=== PATIENT | female | born 1940 | race Caucasian/White ===

== ENCOUNTER 2021-08-03 13:28 | Outpatient (REF) | payer SELFPAY ==
--- NOTE | 2021-08-08 10:53 | MHC.AU.HAS ---
Hearing Aid Evaluation Date of Visit: 08/03/21 Political Anthropologist Used: Not Applicable Historical Information: Description of Hearin05/02/2021 Bilateral borderline normal low frequency sloping to moderately-severe sensorineural hearing loss with right tinnitus. PT Revaluation on 05/18/2021 showed decreased by 30 dB for right threshold at 8000 Hz only. Current personal amplification information, if applicable: None Summary: I LEFT MESSAGE WITH DR. MARTINES ON 08-08-21 TO DISCUSS THE CONTINUED RIGHT EAR PAIN PATIENT IS CONCERNED THE HEARING AID WILL BOTHER THE EAR. WANT TO DISCUSS IF PROBLEM COULD BE RELATED TO INFLAMMATION AND NEED FURTHER TREATMENT (NASAL SPRAY ?) OR CT SCAN. Hearing Aid Prescription: Based on the individual?s shared listening needs, communication environments, dexterity, desire for connectivity, and personal preferences, the following prescription for amplification has been made: Right ear: Jig Bore Tool Maker: [email or web address] Model: NOBLE PEAK VISION AI 2400 MYNOR-R Battery Size: Rechargeable Color: Bronze Computer Installation Engineer: #3 50 gain Type of Dome: Open Left ear: Jig Bore Tool Maker: [email or web address] Model: Zaarlyv AI 2400 MYNOR-R Battery Size: Rechargeable Color: Bronze Computer Installation Engineer: #3 50 gain Type of Dome: Open Plan of Care: Patient wishes to purchase hearing aids as prescribed Action Taken/Action Needed: Medical Clearance to be requested from ENT in chart Hearing Instrument Fitting to be scheduled when materials arrive Primary Diagnosis: H90.3 Bilateral Sensorineural Hearing Loss Signature: Provider: Jesse Rosales, CCC-A
== END 2021-08-03 13:29 | disposition home or self-care (01) ==
LOC: HO.HAP 13:28
PROVIDERS: Visit Provider Internal Medicine
DX: Z46.1 Encounter for fitting and adjustment of hearing aid (principal); H90.3 Sensorineural hearing loss, bilateral
CPT/HCPCS: 92591

== ENCOUNTER 2021-08-29 12:22 | Outpatient (REF) | payer SELFPAY | END 2021-08-29 12:23 | disposition home or self-care (01) | LOC: HO.HAP 12:22 | PROVIDERS: Visit Provider Internal Medicine | DX: Z46.1 Encounter for fitting and adjustment of hearing aid (principal); H90.3 Sensorineural hearing loss, bilateral | CPT/HCPCS: V5261; V5299 ==

== ENCOUNTER 2021-09-19 12:18 | Outpatient (REF) | payer SELFPAY ==
--- NOTE | 2021-09-19 13:51 | MHC.AU.HFU ---
Hearing Instrument Follow-Up- Binaural Date of Visit: 09/19/21 Right Ear: Commercial Portfolio Manager: Lev Model: Evolve AI 2400 MYNOR-R Serial Number: [id number] Repair Warranty: 11/20/2024 Loss and Damage Warranty: 11/20/2024 Battery Size: Rechargeable Color: Bronze Structures Assembler: #2 50 gain Type of Dome: Open-7mm Type of Wax Guard: HearClear Dispensed By: [facility] Date of Fittin08/29/2021 Left Ear: Commercial Portfolio Manager: Lev Model: Evolv AI 2400 MYNOR-R Serial Number: [id number] Repair Warranty: 11/20/2024 Loss and Damage Warranty: 11/20/2024 Battery Size: Rechargeable Color: Bronze Structures Assembler: #2 50 gain Type of Dome: Open 7mm Type of Wax Guard: HearClear Dispensed By: [facility] Date of Fittin08/29/2021 Follow-Up Summary: Aids have fallen off ears many times. No wearing aids when at home as they are loud and echoing. Changed to #2 60 gain Right automotive parts counter assistant (did not have 50 gain in stock) and #2 50 gain Left with retention tails. Fit seems better. Decided to try custom canal lock molds with large vents, took impressions without complication. Patient was asking about the Phonak Belen product. Discussed pros and cons and patient decided not to pursue. Discussed CIC aids (BUT WOULD BE BATTERY, NOT RECHARGEABLE) and may try if canal lock molds do not help. Recommendations:Schedule appointment when canal lock molds received. Diagnosis Code(s): Primary Diagnosis: H90.3 Bilateral Sensorineural Hearing Loss Signature:Provider: Marquez Rosales, [facility]
== END 2021-09-19 12:19 | disposition home or self-care (01) ==
LOC: HO.HAP 12:18
PROVIDERS: Visit Provider Internal Medicine
DX: Z13.89 Encounter for screening for other disorder (principal)

== ENCOUNTER 2021-10-12 13:20 | Outpatient (REF) | payer SELFPAY ==
--- NOTE | 2021-10-12 16:29 | MHC.AU.HFU ---
Hearing Instrument Follow-Up- Binaural Date of Visit: 10/12/21 Puppet Maker Used: Not Applicable Right Ear: Dyeing Machine Feeder: Best Five Reviewed Model: Evolve AI 2400 MYNOR-R Serial Number: [id number] Repair Warranty: 11/20/2024 Loss and Damage Warranty: 11/20/2024 Battery Size: Rechargeable Color: Bronze Unit Nurse: #2 50 gain Type of Mold: Lev canal lock #[id number] warranty 12/27/2021 Type of Wax Guard: HearClear Dispensed By: [facility] Date of Fittin08/29/2021 Left Ear: Dyeing Machine Feeder: Best Five Reviewed Model: Evolv AI 2400 MYNOR-R Serial Number: [id number] Repair Warranty: 11/20/2024 Loss and Damage Warranty: 11/20/2024 Battery Size: Rechargeable Color: Bronze Unit Nurse: #2 50 gain Type of Mold: Lev canal lock #[id number] warranty 12/27/2021 Type of Wax Guard: HearClear Dispensed By: [facility] Date of Fittin08/29/2021 Follow-Up Summary: Fit patient with canal lock molds with 50 gain receivers. Re-ran feedback test with patient reporting much improved sound quality and secure fit of molds. Practiced insertion. Doing well while in office. Patient will schedule appointment if any concerns. Recommendations: Hearing instrument follow-up or maintenance as needed. Please contact our clinic with any questions or concerns. Diagnosis Code(s):Primary Diagnosis: H90.3 Bilateral Sensorineural Hearing Loss Services Performed: HANC: NonBillable Event Signature:Provider: Jesse Rosales, CCC-A
== END 2021-10-12 13:21 | disposition home or self-care (01) ==
LOC: HO.HAP 13:20
PROVIDERS: Visit Provider Internal Medicine
DX: Z13.89 Encounter for screening for other disorder (principal)

== ENCOUNTER 2022-04-09 15:41 | Outpatient (REF) | payer SELFPAY | END 2022-04-09 15:42 | disposition home or self-care (01) | LOC: HO.HAP 15:41 | PROVIDERS: Visit Provider Internal Medicine | DX: Z13.89 Encounter for screening for other disorder (principal) ==

== ENCOUNTER 2023-02-12 13:49 | Outpatient (AMB) | payer SELFPAY ==
--- NOTE | 2023-02-12 13:56 | HO.SPINEOV ---
Intake Intake Visit Reasons: Back pain Intake Note: Mrs. Novak is here today c/o back pain and knee pain. MRI done @ [facility]/brought disc. Early Childhood Director Required: No Allergies no narcotics Allergy (Unknown, Uncoded 08/18/19 00:00) Assessment & Plan Assessment & Plan (1) Knee pain, right: Code(s): M25.561 - Pain in right knee Plan Dear colleague, On 02/12/2023, I saw Brooklynn Novak with a chief complaint of right knee pain radiating down her menendez.. HPI: Patient states that she underwent a partial right knee 2015 with good results. She fell and tripped in 2016 and landed on her left side. She complained of pain in her left side. No back pain, no numbness or weakness. She underwent conservative management and eventually ended up receiving a revision total knee surgery in 2016. Postoperatively she developed a burning pain in her right knee that radiates down her menendez. Standing for prolonged periods of time increases the pain. She then has to lay down with elevation of her right leg to diminish the pain. She is currently in physical therapy which is helping her symptoms. Physical Exam: Pleasant female. On inspection there are no deformities of the spine. No pain on palpation. Normal range of motion without pain. Straight leg raise is negative. There are no sensory deficits or weakness. No pathological reflexes. Radiological Studies: MRI of the lumbar spine is age-appropriate. There is mild degenerative disc disease L4-5. There is no foraminal stenosis or central stenosis. There is no nerve root compression. Impression/Plan: This patient is suffering from persistent burning pain in her right knee with radiation down her menendez. The pain is not spine related but originates from her right knee. I consulted a neurologist at [facility] to see if an SSEP will be helpful in demonstrating which sensory nerves involved. The answer was that this study would not be beneficial. Thank you for allowing me to participate in your patients care. total time spent was 50 minutes in counseling ,coordination of plan, personal review of imaging,and subsequent plan Greg Gonzales MD, PhD Spine Fellowship Trained Neurosurgeon Director, [facility] Coding Level of Care Code New Pt Level 4 (28804) Diagnoses Knee pain, right M25.561
== END 2023-02-12 15:12 | disposition home or self-care (01) ==
PROVIDERS: Visit Provider Neurological Surgery
DX: M25.561 Pain in right knee (principal)
CPT/HCPCS: 99204

== ENCOUNTER → 2023-02-12 13:49 | Outpatient (BNVA) | payer MEDICARE, SELFPAY | PROVIDERS: PCP Internal Medicine; Visit Provider Neurological Surgery | DX: M25.561 Pain in right knee (principal); M54.9 Dorsalgia, unspecified | CPT/HCPCS: 99202 ==

== ENCOUNTER 2023-08-15 12:32 | Outpatient (REF) | payer MEDICARE, SELFPAY ==
--- NOTE | 2023-08-15 13:42 | MHC.AU.HA3 ---
Hearing Instrument Follow-Up- Binaural Date of Visit: 08/15/23 Right Ear: Make, Model, Color, Serial Number: Lev CURRY 2400 MYNOR-R [place] [id number] Kitchen Help Handyman Repair Warranty: 11/20/2024 Kitchen Help Handyman Loss and Damage Warranty: 11/20/2024 [facility] Service Plan: 08/29/2024 Battery Size: Rechargeable Fire Supervisor/Slim Tube: #2 50 gain Earmold/Dome/CShell/SlimTip:Lev canal lock #[id number] warranty 12/27/2021 Type of Wax Guard: HearClear Dispensed By: [facility] Date of Fittin08/29/2021 Left Ear: Herve, Model, Color, Serial Number: Lev CURRY 2400 MYNOR-R [place] SN#[id number] Kitchen Help Handyman Repair Warranty: 11/20/2024 Kitchen Help Handyman Loss and Damage Warranty: 11/20/2024 [facility] Service Plan: 08/29/2024 Battery Size: Rechargeable Fire Supervisor/Slim Tube: #2 50 gain Earmold/Dome/CShell/SlimTip: Lev canal lock #[id number] warranty 12/27/2021 Type of Wax Guard: HearClear Dispensed By: [facility] Date of Fittin08/29/2021 Follow-Up Summary: Here for evaluation. Left mold was on backwards. Notes she turns the aids up regularly. Cleaned and checked aids, cleaned earmolds, replaced wax guards. Listening check positive. Increased overall gain slightly. Improvement reported. Recommendations: Recommendations: Hearing instrument follow-up or maintenance as needed. Diagnosis Code(s): Primary Diagnosis: H90.3 Bilateral Sensorineural Hearing Loss Signature: Provider: Brittni Bowles, CCC-A
== END 2023-08-15 12:33 | disposition home or self-care (01) ==
LOC: HO.SH 12:32
PROVIDERS: Visit Provider Internal Medicine
DX: Z01.118 Encounter for examination of ears and hearing with other abnormal findings (principal); H90.3 Sensorineural hearing loss, bilateral
CPT/HCPCS: 92557

== ENCOUNTER 2023-11-15 12:46 | Outpatient (REF) | payer MEDICARE, SELFPAY | END 2023-11-15 12:47 | disposition home or self-care (01) | LOC: HO.HAP 12:46 | DX: Z13.89 Encounter for screening for other disorder (principal) ==

== ENCOUNTER 2023-11-22 13:23 | Outpatient (REF) | payer SELFPAY | END 2023-11-22 13:24 | disposition home or self-care (01) | LOC: HO.HAP 13:23 | PROVIDERS: PCP Internal Medicine; Visit Provider Internal Medicine | DX: Z13.89 Encounter for screening for other disorder (principal) ==

== ENCOUNTER 2024-04-28 13:31 | Outpatient (REF) | payer SELFPAY ==
--- NOTE | 2024-04-29 07:23 | MHC.AU.HA3 ---
Hearing Instrument Follow-Up- Binaural Date of Visit: 04/28/24 Right Ear: Make, Model, Color, Serial Number: Lev Rutherford AI 2400 MYNOR-R SN: [id number] Color: Bronze It Help Desk Technician Repair Warranty: 11/20/2024 It Help Desk Technician Loss and Damage Warranty: 11/20/2024 [facility] Service Plan: 08/29/2024 Battery Size: Rechargeable Air Transport Professionals/Slim Tube: #2 50 gain Earmold/Dome/CShell/SlimTip:Lev canal lock #[id number] warranty 12/27/2021 Type of Wax Guard: HearClear Dispensed By: [facility] Date of Fittin08/29/2021 Left Ear: Make, Model, Color, Serial Number: Lev Rutherford AI 2400 MYNOR-R SN: [id number] Color: Bronze It Help Desk Technician Repair Warranty: 11/20/2024 It Help Desk Technician Loss and Damage Warranty: 11/20/2024 [facility] Service Plan: 08/29/2024 Battery Size: Rechargeable Air Transport Professionals/Slim Tube: #2 50 gain Earmold/Dome/CShell/SlimTip: Lev canal lock #[id number] warranty 12/27/2021 Type of Wax Guard: HearClear Dispensed By: [facility] Date of Fittin08/29/2021 Follow-Up Summary: Sound quality reportedly weak/not clear, still getting feedback, especially from left JUNIOR. Needs to turn down volume to resolve but then has difficulty hearing. Questions change in hearing - recommended updated hearing test. In the meantime, cleaned both HAs and EMs. Left customer retention representative cracked at end, would not hold in wax guard. Replaced customer retention representative. Reran feedback analyzer, significant decrease in amplification. Increased mid to high frequencies. Initially sound quality improved, left ear but not right ear. However, then Brooklynn reported right ear was better. Discussed options including new EMs to help with feedback, performing updated hearing test (farnsworth not available today), full reprogramming, etc. Brooklynn opted to start with new EMs and reprogramming. Impressions taken, bilaterally, without incident - Sent to Lev. Brooklynn agreeable to softer material. Quoted $190.00 due at mushroom picker. Will rerun feedback analyzer and real ear measures at next appointment to address issues with sound quality. Recommendations: Patient will be contacted when materials have arrived. Diagnosis Code(s): Primary Diagnosis: H90.3 Bilateral Sensorineural Hearing Loss Signature: Provider: Brittni Tyson, [facility]
== END 2024-04-28 13:32 | disposition home or self-care (01) ==
LOC: HO.HAP 13:31
PROVIDERS: Visit Provider Internal Medicine
DX: Z13.89 Encounter for screening for other disorder (principal)

== ENCOUNTER 2024-06-04 13:30 | Outpatient (REF) | payer MEDICARE, SELFPAY ==
--- OUTSIDE RECORDS SUMMARY | 2024-06-04 13:33 | XMS_ITS ---
Author Name [facility] Organization Unknown History of Medication Use Medication Directions Dispensed Refills Start Date End Date Stat olmesartan (BENICAR) 5 mg tablet Take 2 tablets (10 mg total) by mouth 1 (one) time each day. 05/31/2024 9 active clonazePAM (KlonoPIN) 1 mg tablet 1 tablet (1 mg total) 2 (two) times a day. 05/31/2024 9 active lidocaine (ZTlido) 1.8 % adhesive patch,medicated ZTlido 1.8 % topical patch APPLY 1 PATCH EXTERNALLY TO THE SKIN ONCE DAILY. MAY WEAR FOR UP TO 12 HOURS 05/31/2024 9 active loperamide (IMODIUM) 1 mg/7.5 mL solution Take 15 mL (2 mg total) by mouth. 05/31/2024 9 aborted diphenoxylate-atrop ine (LOMOTIL) 2.5-0.025 mg per tablet Take 1 tablet by mouth every 6 (six) hours as needed for diarrhea. 05/31/2024 9 active amoxicillin (AMOXIL) 500 mg capsule Dental work 05/31/2024 9 aborted colestipoL (COLESTID) 1 gram tablet Take 1 tablet (1 g total) by mouth 1 (one) time each day. 05/31/2024 9 aborted EPINEPHrine (EPIPEN) 0.3 mg/0.3 mL injection epinephrine 0.3 mg/0.3 mL injection, auto-injector USE DIRECTED FOR ANAPHYLAXIS AND CALL 911 05/31/2024 9 active simvastatin (ZOCOR) 20 mg tablet Take 1 tablet (20 mg total) by mouth 1 (one) time each day. 05/31/2024 9 active Lactobacillus acidophilus (PROBIOTIC ACIDOPHILUS ORAL) 1 (one) time each day. 05/31/2024 9 active olmesartan (BENICAR) 5 mg tablet Take by mouth. Taking two 5 mg Q AM 05/31/2024 9 aborted meclizine (ANTIVERT) 12.5 mg tablet Take 1 tablet (12.5 mg total) by mouth 3 times daily as needed. 05/31/2024 9 aborted EPINEPHrine 0.3 MG/0.3ML SOAJ epinephrine 0.3 mg/0.3 mL injection, auto-injector USE DIRECTED FOR ANAPHYLAXIS AND CALL 911 12/03/2023 active diphenoxylate-atrop ine (LOMOTIL) 2.5-0.025 MG per tablet TAKE ONE TABLET BY MOUTH EVERY DAY NEEDED FOR DIARRHEA 12/04/2023 active simvastatin (ZOCOR) tablet 20 mg Take 1 tablet (20 mg total) by mouth daily. 12/04/2023 active olmesartan (BENICAR) tablet 20 mg Take 1 tablet (20 mg total) by mouth daily. 12/03/2023 aborted amoxicillin (AMOXIL) 500 MG capsule Dental work 12/03/2023 active Lidocaine (ZTlido) 1.8 % PTCH ZTlido 1.8 % topical patch APPLY 1 PATCH EXTERNALLY TO THE SKIN ONCE DAILY. MAY WEAR FOR UP TO 12 HOURS 12/03/2023 active clonazePAM (KlonoPIN) 1 MG tablet Take 0.5 mg by mouth daily. 12/04/2023 active amLODIPine (NORVASC) tablet 2.5 mg Take 1 tablet (2.5 mg total) by mouth daily. 12/03/2023 aborted meclizine (ANTIVERT) 12.5 MG tablet Take 1 tablet (12.5 mg total) by mouth 3 (three) times a day as needed. 12/03/2023 active olmesartan (BENICAR) tablet 5 mg Take 2 tablets (10 mg total) by mouth daily. 12/03/2023 aborted olmesartan (BENICAR) tablet 20 mg Take 0.5 tablets (10 mg total) by mouth daily. Take half tab daily (please cancel any prior dose) 12/03/2023 active loperamide (IMODIUM) 1 MG/7.5ML solution Take 15 mL (2 mg total) by mouth. 12/03/2023 active meloxicam 7.5 mg tablet TAKE ONE TABLET BY MOUTH EVERY DAY WITH FOOD 12/07/2022 active simvastatin 20 mg tablet TAKE ONE TABLET BY MOUTH AT BEDTIME 12/07/2022 active epinephrine 0.3 mg/0.3 mL injection, auto-injector USE DIRECTED FOR ANAPHYLAXIS AND CALL 911 12/07/2022 active acetaminophen 300 mg-codeine 30 mg tablet TAKE ONE TABLET BY MOUTH EVERY 8 HOURS NEEDED 12/07/2022 completed tramadol 50 mg tablet TAKE ONE TABLET BY MOUTH FOUR TIMES A DAY NEEDED DIRECTED 12/07/2022 active betamethasone acetate-betamethaso ne sodium phosphate (CELESTONE) injection 12 mg 12 mg, Intra-articular, Once PRN Procedure, Starting on Patti 06/06/23 at 1345, For 1 dose 06/08/2023 completed diphenoxylate-atrop ine 2.5 mg-0.025 mg tablet TAKE ONE TABLET BY MOUTH FOUR TIMES A DAY NEEDED FOR DIARRHEA 12/07/2022 active Flowflex COVID-19 Antigen Home Test kit USE DIRECTED PER COMPUTERIZED MILL RECORDER INSTRUCTIONS TO TEST FOR COVID-19 12/07/2022 completed ZTlido 1.8 % topical patch APPLY 1 PATCH TOPICALLY TO SKIN ONCE DAILY - MAY WEAR UP TO 12 HOURS 12/07/2022 active amlodipine 2.5 mg tablet TAKE ONE TABLET BY MOUTH EVERY DAY 12/07/2022 active No known medications No known medications 01/06/2023 active clonazepam 1 mg tablet TAKE 1-2 TABLETS BY MOUTH AT BEDTIME 12/07/2022 active Problems Problem Status Onset Date Problem Type Date of Resolution Source Primary osteoarthritis involving multiple joints active 2017-05-17 ProblemAct [facility] Loosening of knee joint prosthesis active 2022-10-23 ProblemAct [facility]_THSFRAN Primary osteoarthritis involving multiple joints active 2017-05-17 ProblemAct [facility]SFRAN Palpitations active 2020-06-16 ProblemAct CT_TH SFRAN Trochanteric bursitis of left hip active 2022-12-05 ProblemAct CT_THSF RAN Neuritis of right saphenous nerve active 2021-06-01 ProblemAct [facility]_THSFRAN Bilateral tinnitus active 2017-05-17 ProblemAct [facility]_THSFRAN Cervical radiculopathy active 2021-06-01 ProblemAct [facility]_THSFRAN Complex regional pain syndrome type 2 of lower extremity active 2021-06-01 ProblemAct CT_THSFRA N Acquired hammer toe of left foot active 2024-02-04 ProblemAct [facility]_THSFRAN HTN (hypertension) active 2020-09-14 ProblemAct [facility]_THSFRAN Degeneration of lumbar intervertebral disc active 2021-06-01 ProblemAct CT_THSFR AN Chest pain active 2017-05-17 ProblemAct CT_THSF RAN Epigastric pain active 2024-02-[address] _THSFRAN Lumbar radiculopathy active 2021-06-01 ProblemAct [facility]_THSFRAN Hyperlipidemia active 2016-10-04 ProblemAct [facility]_ THSFRAN Pes anserinus tendinitis of right lower extremity active EncounterDiagnosisAct [facility] Degeneration of lumbar intervertebral disc active 2021-06-01 ProblemAct [facility]THNEMG Back pain active 2017-05-17 ProblemAct [facility]THNEMG Tinnitus active 2017-05-17 ProblemAct [facility]THNEMG Fatigue, unspecified type active EncounterDiagnosisAct CTTHNE MG Complex regional pain syndrome type I active 2021-06-01 ProblemAct CTTHNEM G Loosening of knee joint prosthesis active 2022-10-23 ProblemAct [facility] Pain of left hip joint active 2022-12-05 ProblemAct CT_THSFRAN Complex regional pain syndrome of lower limb active 2018-10-16 ProblemAct [facility]_THSFRAN Arthritis of right knee active 2021-06-01 ProblemAct [facility]_THSFRAN 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 active 2022-09-25 ProblemAct [facility] Immunizations Vaccine Date Source Lot Number Status Pneumococcal conjugate 13 va lent (Prevnar 13, PCV13) 2mo and older 05/17/2017 CT_JAMIEFRRICKI [id number] complet ed [facility] SARS-CoV-2 COVID-19, mRNA, LNP-S, preservative free 07/22/2020 CT_JULIAN [id number] completed Influenza, Unspecified 04/03/2019 CT_BALDEMARSANDRES co mpleted Tdap Tetanus diptheria acell ular pertussis (Boostrix; Adacel) 7yo and older 12/20/2011 CT_BALDEMARSANDRES completed Influenza trivalent, with pr eservative (Fluzone; Afluria) 6mo and older 03/08/2013 CT_SFRRICKI completed Influenza trivalent, 0.5mL ( Fluzone High-dose) 65yo and older 03/14/2018 CT_SFRRICKI [id number] comple chriss Influenza trivalent, with pr eservative (Fluzone; Afluria) 6mo and older 03/25/2010 CT_SFRAN completed Influenza trivalent, with pr eservative (Fluzone; Afluria) 6mo and older 03/06/2014 CT_SFRRICKI completed Pneumococcal polysaccharide 23 valent (Pneumovax 23) 2yo and older 03/17/2004 CT_SFRRICKI com pleted [facility] SARS-CoV-2 COVID-19, mRNA, LNP-S, preservative free 08/12/2020 [facility] [id number] completed Influenza, Unspecified 03/25/2009 CT_SFRRICKI co mpleted Td Tetanus diptheria, preser vative free (Tenivac) 7yo and older 03/17/2001 CT_SANDRES complete d
== END 2024-06-04 13:31 | disposition home or self-care (01) ==
LOC: HO.SH 13:30
PROVIDERS: Visit Provider Internal Medicine
DX: Z01.118 Encounter for examination of ears and hearing with other abnormal findings (principal); H90.3 Sensorineural hearing loss, bilateral
CPT/HCPCS: 92552; 92556

== ENCOUNTER 2024-06-04 13:32 | Outpatient (REF) | payer SELFPAY ==
--- NOTE | 2024-06-04 15:31 | MHC.AU.HA3 ---
Hearing Instrument Follow-Up- Binaural Date of Visit: 06/04/24 Right Ear: Make, Model, Color, Serial Number: Lev CURRY 2400 MYNOR-R SN: [id number] Color: Bronze Community Support Specialist Repair Warranty: 11/20/2024 Community Support Specialist Loss and Damage Warranty: 11/20/2024 [facility] Service Plan: 08/29/2024 Battery Size: Rechargeable Line Tender Flakeboard/Slim Tube: #2 50 gain Earmold/Dome/CShell/SlimTip:Lev canal lock 60 [facility] SN: [id number] Mame: 08/06/2024 Type of Wax Guard: HearClear Dispensed By: [facility] Date of Fittin08/29/2021 Left Ear: Make, Model, Color, Serial Number: Lev CURRY 2400 MYNOR-R SN: [id number] Color: Bronze Community Support Specialist Repair Warranty: 11/20/2024 Community Support Specialist Loss and Damage Warranty: 11/20/2024 [facility] Service Plan: 08/29/2024 Battery Size: Rechargeable Line Tender Flakeboard/Slim Tube: #2 50 gain Earmold/Dome/CShell/SlimTip: Lev canal lock 60 [facility] SN: [id number] Mame: 08/06/2024 Type of Wax Guard: HearClear Dispensed By: [facility] Date of Fittin08/29/2021 Follow-Up Summary: Slight decrease in hearing, bilaterally - see audio. Fit new ear molds and ran real ear, reprogramming to updated test. Brooklynn noticed immediate improvement in sound quality. Louder, clearer, not straining as much to understand. Decreased overall gain slightly for comfort. Noted own voice still loud but tolerable, willing to try to acclimate. Practiced insertion, advised to ensure molds are fully inserted. Has old molds to keep as backup. Recommendations: Hearing instrument follow-up or maintenance as needed. Please contact our clinic with any questions or concerns. Patient will call if problems persist. Diagnosis Code(s): Primary Diagnosis: H90.3 Bilateral Sensorineural Hearing Loss Signature: Provider: Brittni Tyson, [facility]
== END 2024-06-04 13:33 | disposition home or self-care (01) ==
LOC: HO.HAP 13:32
PROVIDERS: Visit Provider Internal Medicine
DX: Z46.1 Encounter for fitting and adjustment of hearing aid (principal); H90.3 Sensorineural hearing loss, bilateral
CPT/HCPCS: V5264

== ENCOUNTER 2024-08-05 12:22 | Outpatient (REF) | payer SELFPAY ==
--- OUTSIDE RECORDS SUMMARY | 2024-08-05 12:44 | XMS_ITS | Encounter Summary ---
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 [address] [facility] [address] [address] Encounter Date: 07/14/2024 History of Present Illness: Brooklynn Novak is a 84 y.o. female who presents today for followup evaluation of her right knee.Complex history. She underwent unicondylar knee replacement in [place] in 2016. She had a fall in the early postoperative period and never recovered. For this reason she was revised to a total knee arthroplasty [place] [address] Huerta in [place]. Implants are [employer] fixed bearing. She has had chronic pain since the surgery. She denies any index wound healing problems or infections. Her pain is located primarily anteriorly medially. She feels it both with activity and at rest. She denies any radiating/radicular pain. She has now had quite extensive workup including a negative bone scan and negative inflammatory markers. She has tried prior therapy exercises, use of a brace, and genicular nerve ablation. The nerveablation was done in 2019 and gave her approximately 6 days of relief and then wore off. She occasionally takes tramadol. She uses lidocaine patches frequently. She is a retired OR nurse, used to work at the [employer]. Overall she continues to struggle with the right knee. She is also noticed the lateral hip and thigh pain when she is lying on her right side. She is not having radiation up to the low back. She does tell me she is recently . Physical Exam Examination of the right knee demonstrates well-healed surgical incision. I see no signs of infection. There is no erythema or effusion. There is some generalized swelling. She is quite tender over the pes tendons. The remainder of the knee is only mildly tender. Range of motion is from full extension to 125 degrees of flexion. The knee is stable in extension to varus and valgus stress in full extension. There is moderate flexion instability noted. She is distal neurovascular intact. There is no evidence of referred pain from the hip. Diagnostic Data I did offer to obtain new x-rays as a last were from August 2023. The patient politely declined. Assessment & Plan 1. 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, subsequent encounter 2. Iliotibial band syndrome of right side Brooklynn continues to have pain to the right knee. She simply has not done well with her knee replacement. She does have moderate flexion instability on exam today and that may account for some of her symptoms. As discussed in prior notes there is no severe or gross instability and I am not sure that revision surgery would be in her best interest. She is quite adamant that at this point she does not w ant surgery or further x-rays so we will hold off on any further workup. I do think she benefit from physical therapy which has been ordered. 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 Therapy should work on dynamic stabilizers of the knee, her hip abductors, and stretching of her IT band. She will follow-up on an as-needed basis. Clarence Lockhart MD documented in this encounter Plan of Treatment Not on file documented as of this encounter Goals Goal Patient Goal Type Associated Problems Recent Progress Patient-Stated? Author PT STG 1 Physical Therapy Not on track( 024 1:35 PM EDT) No Merly Cannon, PT Note: Patient will be able to stand x 20 minutes with less than 3 out of 10 right knee pain without assistive device modified independent within 4 weeks. Patient will be able to perform sit to stand 3 out of 5 times with less than 2 out of 10 right knee pain without loss of balance without upper extremity support modified independent within 4 weeks. Patient will be independent with written right lower extremity home exercise program within 4 weeks. PT LTG 1 Physical Therapy On track( 025 1:26 PM EST) No Merly Cannon, PT Note: Patient will improve right hip strength at all planes to 4+ out of 5 to be able to ambulate up and down 13 stairs with 1 rail reciprocally with less than 2 out of 10 right knee pain within 8 weeks. Patient will be able to perform sit to stand transfers without upper extremity support without loss of balance modified independent 5 out of 5 times with less than 2 out of 10 right knee pain within 8 weeks. Decrease LEFS score by 20 points within 8 weeks. documented as of this encounter Visit Diagnoses Diagnosis 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, subsequent encounter- Primary Iliotibial band syndrome of right side documented in this encounter Care Teams Learning And Development Director Relationship Specialty Start Date End Date Brent Crisostomo MD [address] [place] [id number] PCP - General Internal Medicine 10/16/23 documented as of this encounter
--- OUTSIDE RECORDS SUMMARY | 2024-08-05 12:44 | XMS_ITS | Data Portability ---
Author Organization [facility] Address [address] [facility],[address] [place] [address] Care Team Providers Care Director [facility] Name Role Phone SID RAMOS Primary Care Provider Assessment Encounter Date Assessment Date Assessment LastModified by Organization Details LastModified Time 03/22/2020 03/22/2020 Brooklynn Novak is a 80 year old woman with low back pain radiating occasionally into the right lower extremity. On exam ,she has pain on flexion. MRI Lumbar spine shows Moderate upper lumbar levoscoliosis, with multilevel discogenic degenerative changes with multilevel minimal degrees of disc bulging and disc herniations. She is here for a repeat Lumbar epidural steroid injections under fluoroscopic guidance . The risks and benefits of the procedure were discussed in detail. She wishes to proceed. She needs to follow up in four weeks by telehealth visit . [email or web address] Not available 03/22/2020 15:42:16 06/29/2020 06/29/2020 Brooklynn Novak is a 80 year old woman with low back pain radiating occasionally into the right lower extremity. On exam ,she has pain on flexion. MRI Lumbar spine shows Moderate upper lumbar levoscoliosis, with multilevel discogenic degenerative changes with multilevel minimal degrees of disc bulging and disc herniations. She is here for a repeat Lumbar epidural steroid injections under fluoroscopic guidance . The risks and benefits of the procedure were discussed in detail. She wishes to proceed. She needs to follow up in four weeks by telehealth visit . [email or web address] Not available 06/29/2020 14:02:10 12/07/2020 12/07/2020 Brooklynn Novak is a 78 year old woman with complaints of pain in her right knee. She is S/P Right total knee replacement and has persistent knee pain. 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 She is here for a right saphenous nerve block under ultrasound guidance. The risks and benefits of the procedure were discussed in detail. She wishes to proceed. She will follow up as needed. [email or web address] Not available 12/08/2020 11:10:40 02/26/2022 02/26/2022 Brooklynn Novak is a 82 year old woman with low back pain radiating occasionally into the right lower extremity. On exam ,she has pain on flexion. MRI Lumbar spine shows Moderate upper lumbar levoscoliosis, with multilevel discogenic degenerative changes with multilevel minimal degrees of disc bulging and disc herniations. Repeat Lumbar epidural steroid injections under fluoroscopic guidance was recommended. The risks and benefits of the procedure were discussed in detail. She wishes to proceed. An appointment has been booked for the same. She needs a pizza delivery driver on the day of the procedure. [email or web address] Not available 02/27/2022 08:51:21 05/24/2022 05/24/2022 Brooklynn Novak is a 82 year old woman with low back pain radiating occasionally into the right lower extremity. On exam ,she has pain on flexion. MRI Lumbar spine shows Moderate upper lumbar levoscoliosis, with multilevel discogenic degenerative changes with multilevel minimal degrees of disc bulging and disc herniations. Repeat Lumbar epidural steroid injections under fluoroscopic guidance was recommended. The risks and benefits of the procedure were discussed in detail. She wishes to proceed. An appointment has been booked for the same. She needs a pizza delivery driver on the day of the procedure. [email or web address] Not available 05/24/2022 15:27:51 Plan of Treatment Reminders Order Date Submit Date Provider Last Modified By Organization Details Last Modified Time Details Appointments None recorded. Lab None recorded. Referral None recorded. Procedures None recorded. Surgeries None recorded. Imaging None recorded. Medication Orders ZTlido 1.8 % topical patch 2021 022 [id number], [address] [place], [place], [id number], 14:52:27 ZTlido 1.8 % topical patch 2019 020 [id number], [address], [place], [place], [id number], 0 15:43:11 Patient TargetsNo targets recorded. Patient Instructions Encounter Date Encounter Id Patient Instructions Last Modified By Organization Details Last Modified Time 03/22/2020 [id number] She was advised against bed rest lasting longer than four days and to continue activities as tolerated. [email or web address] Not available 03/22/2020 15:41:04 06/29/2020 [id number] She was advised against bed rest lasting longer than four days and to continue activities as tolerated. [email or web address] Not available 06/29/2020 14:02:11 12/07/2020 [id number] She was advised against bed rest lasting longer than four days and to continue activities as tolerated. [email or web address] Not available 12/08/2020 11:09:19 02/26/2022 [id number] She was advised against bed rest lasting longer than four days and to continue activities as tolerated. [email or web address] Not available 02/27/2022 08:51:33 05/24/2022 [id number] She was advised against bed rest lasting longer than four days and to continue activities as tolerated. [email or web address] Not available 05/24/2022 15:27:51 Reason for Referral None Reported. Problems Name Problem SNOMED Code Status Onset Date Resolution Date Notes Provider Name and Address Organization Details Recorded Time Right saphenous neuritis 019740629293 108 Active Meme gant MD [address] , [address], [place], [address], [place] [facility] 15:07:29 Arthritis of right knee 716091143796 9102 Active Meme gant MD [address] , [address], [place], [address], [place] [facility] 9 15:07:43 Complex regional pain syndrome, type II, lower limb 938362797 Completed 10/16/2018 Meme gant MD [address] , [address], [place], [address], [place] [facility] 9 14:51:48 Complex regional pain syndrome type I 768352746 Active Meme gant MD [address] , [address], [place], [address], [place] [facility] 9 14:52:12 Complex regional pain syndrome of lower limb 577257609 Active 2018 Meme gant MD [address] , [address], [place], [address], [place] [facility] 9 14:54:07 Cervical radiculop athy 32417660 Active Meme gant MD [address] , [address], [facility] [place], [address], [place] [facility] 9 10:12:07 Lumbar radiculop athy 602372772 Active Meme gant MD [address] , [address], [place], [address], [place] [facility] 0 15:48:26 Degenerat ion of lumbar intervert ebral disc 62562363 Active Meme gant MD [address] , [address], [facility] [place], [address], [place] [facility] 0 15:48:40 Problem Notes None recorded. Procedures Surgical History Date Name Laterality Status Provider Name and Address Organization Details Recorded Time 12/08/19 21 Sapheneous Nerve block under ultrasound guidance completed Meme Ackerman MD [address] , [address], [place], [address], [place] [facility] 12/08/2020 11:09:29 06/29/19 21 Lumbar Epidural steroid injection under fluoroscopic guidance completed Meme Ackerman MD [address] , [address], [place], [address], [place] [facility] 06/29/2020 14:02:58 03/22/20 20 Lumbar Epidural steroid injection under fluoroscopic guidance completed Meme Ackerman MD [address] , [address], [place], [address], [place] [facility] 03/22/2020 15:41:15 12/08/19 20 Lumbar Epidural steroid injection under fluoroscopic guidance completed Meme Ackerman MD [address] [facility] , [address], [place], [address], [place] [facility] 12/08/2019 16:15:24 07/14/19 20 Lumbar Epidural steroid injection under fluoroscopic guidance completed Meme Ackerman MD [address] [facility] , [address], [place], [address], [place] [facility] 07/14/2019 16:27:03 01/20/20 19 Sapheneous Nerve block under ultrasound guidance completed Meme Ackerman MD [address] [facility] , [address], [place], [address], [place] [facility] 01/19/2019 14:14:27 11/07/19 19 Sapheneous Nerve block under ultrasound guidance completed Meme Ackerman MD [address] [facility] , [address], [place], [address], [place] [facility] 11/07/2018 09:07:54 10/17/19 19 Sapheneous Nerve block under ultrasound guidance completed Meme Ackerman MD [address] [facility] , [address], [place], [address], [place] [facility] 10/16/2018 14:25:02 09/26/19 19 Sapheneous Nerve block under ultrasound guidance completed Meme Ackerman MD [address] [facility] , [address], [place], [address], [place] [facility] 09/25/2018 15:54:24 Cholecystectomy completed Viridiana Emanuel [place] [facility] 08/25/2018 14:27:38 Joint Replacement completed Viridiana Emanuel [place] [facility] 08/25/2018 14:29:14 Imaging Results None recorded. Procedure Notes None recorded. Medical Equipment None Reported. Allergies Allergen ID Allergen Name Allergen Category Reaction Reaction Severity Criticality Documentation Date Start Date Code Code System Note Provider Name and Address Organization Details Recorded Time 58752 acetamino phen / oxycodone medicatio n Not available Not available Not available 01/19/2019 02662 3 RxNorm Palpi ation s Meme gant MD [address] [place] [address] , [address], [facility] [place], [address], [place] [facility] 0 15:46:40 Medications Name Sig Start Date Stop Date Status Note LastModified by Organization Details LastModified Time amoxicill in 500 mg capsule active For dental procedur e Not Available Not Available Not Available neomycin- polymyxin -hydrocor t 3.5 mg/mL-10, 000 unit/mL-1 % ear solution INSTILL 5 DROPS INTO RIGHT EAR EVERY DAY 05/24 completed Not Available Not Available Not Available tizanidin e 2 mg tablet 08/25 completed Not Available Not Available Not Available azithromy chely 250 mg tablet 07/13 completed Not Available Not Available Not Available ofloxacin 0.3 % eye drops INSTILL 1 DROP INTO INTO THE LEFT EYE FOUR TIMES DAILY 05/24 completed Not Available Not Available Not Available ondansetr on HCl 4 mg tablet TK 1 T PO Q 6 H 12/13 completed Not Available Not Available Not Available clonazepa m 0.5 mg tablet TAKE ONE TABLET BY MOUTH EVERY DAY NEEDED 05/24 completed Not Available Not Available Not Available clonazepa m 1 mg tablet TAKE 1 TO 2 TABLETS BY MOUTH AT BEDTIME NEEDED active Not Available Not Available No t Available diphenoxy late-atro pine 2.5 mg-0.025 mg tablet TAKE ONE TABLET BY MOUTH FOUR TIMES A DAY NEEDED FOR DIARRHEA active Not Available Not Available No t Available meclizine 12.5 mg tablet active Not Available Not Available Not Available acetamino phen 300 mg-codein e 15 mg tablet TK 1 T PO TID PRF PAIN 03/22 completed Not Available Not Available Not Available amlodipin e 2.5 mg tablet TAKE ONE TABLET BY MOUTH EVERY DAY NEW DOSE active Not Available Not Available No t Available metronida zole 500 mg tablet TAKE 1 TABLET BY MOUTH THREE TIMES DAILY FOR 3 DAYS 05/24 completed Not Available Not Available Not Available acetamino phen 300 mg-codein e 30 mg tablet TAKE ONE TABLET BY MOUTH EVERY 8 HOURS NEEDED active Not Available Not Available No t Available amlodipin e 5 mg tablet 05/24 completed Not Available Not Available Not Available sulfameth oxazole 800 mg-trimet hoprim 160 mg tablet TAKE ONE TABLET BY MOUTH TWICE A DAY, BEGIN THE DAY OF SURGERY 03/22 completed Not Available Not Available Not Available tramadol 50 mg tablet TAKE ONE TABLET BY MOUTH EVERY 6 HOURS NEEDED FOR SEVERE PAIN (PAIN SCALE 7-10). DO NOT TAKE WITH ACETAMIN OPHEN/ CODEINE* * 05/24 completed Not Available Not Available Not Available amoxicill in 500 mg tablet TAKE 4 TABLETS 30 - 60 MINUTES BEFORE PROCEDUR E 05/24 completed Not Available Not Available Not Available ketorolac 0.5 % eye drops 1 DROP INTO AFFECTED EYE FOUR TIMES DAILY 05/24 completed Not Available Not Available Not Available prednisol one acetate 1 % eye drops,eric pension INSTILL 1 DROP IN THE RIGHT EYE 4 TIMES A DAY 05/24 completed Not Available Not Available Not Available cephalexi n 500 mg capsule 08/25 completed Not Available Not Available Not Available simvastat in 20 mg tablet TAKE 1 TABLET BY MOUTH EVERY DAY active Not Available Not Available No t Available lisinopri l 10 mg tablet TAKE 1 TABLET BY MOUTH EVERY DAY 05/24 completed Not Available Not Available Not Available lidocaine 5 % topical patch APPLY ONE PATCH ONCE DAILY. KEEP ON FOR 12 HOURS AND THEN KEEP OFF FOR 12 HOURS. 03/22 completed Not Available Not Available Not Available hydrochlo rothiazid e 12.5 mg capsule 03/22 completed Not Available Not Available Not Available lisinopri l 5 mg tablet TAKE 1 TABLET BY MOUTH EVERY DAY 05/24 completed Not Available Not Available Not Available gabapenti n 100 mg capsule TK 1 C PO QD IN THE DEE 02/26 completed Not Available Not Available Not Available epinephri ne 0.3 mg/0.3 mL injection , auto-inje ctor USE DIRECTED FOR ANAPHYLA XIS AND CALL 911 active Not Available Not Available No t Available methylpre dnisolone 4 mg tablets in a dose pack TAKE DIRECTED ON PACKAGE 05/24 completed Not Available Not Available Not Available colestipo l 1 gram tablet 05/24 completed Not Available Not Available Not Available atenolol 50 mg tablet 12/13 completed Not Available Not Available Not Available tobramyci n 0.3 %-dexamet hasone 0.1 % eye drops,eric pension 08/25 completed Not Available Not Available Not Available duloxetin e 20 mg capsule,d elayed release TAKE 1 CAPSULE BY MOUTH EVERY DAY 05/24 completed Not Available Not Available Not Available diclofena c 1 % topical gel DMITRY 4 GRAMS AA BY TOPICAL ROUTE QID 12/13 completed Not Available Not Available Not Available ZTlido 1.8 % topical patch APPLY 1 PATCH TOPICALL Y TO SKIN ONCE DAILY - MAY WEAR UP TO 12 HOURS active Not Available Not Available No t Available Flowflex COVID-19 Antigen Home Test kit USE DIRECTED PER MANUFACT URER INSTRU[employer] IONS TO TEST FOR COVID-19 05/24 completed Not Available Not Available Not Available Vitals Date Recorded Body height Heart rate Oxygen saturation Oxygen saturation in Arterial blood by Pulse oximetry Systolic blood pressure Diastolic blood pressure Provider Name and Address Organization Details Last Updated DateTime 0 162.56 cm 74 /min 98 % 98 % 163 mm[Hg] 62 mm[Hg] Nelida Mims [facility] 0 13:59:31 Date Recorded Body height Heart rate Oxygen saturation Oxygen saturation in Arterial blood by Pulse oximetry Systolic blood pressure Diastolic blood pressure Provider Name and Address Organization Details Last Updated DateTime 1 162.56 cm 84 /min 96 % 96 % 171 mm[Hg] 77 mm[Hg] Pedro gant [place] [facility] 1 11:29:06 Date Recorded Body height Heart rate Oxygen saturation Oxygen saturation in Arterial blood by Pulse oximetry Systolic blood pressure Diastolic blood pressure Provider Name and Address Organization Details Last Updated DateTime 1 162.56 cm 66 /min 99 % 99 % 141 mm[Hg] 63 mm[Hg] Meme gant MD [address] [facility] [address], [facility] [place], [address], [place] [facility] 1 15:08:45 Date Recorded Body height Provider Name an d Address Organization Details Last Updated DateTime 12/13/2020 162.56 cm Nelida Mims [place] [facility] 12/13/2020 14:06:30 Date Recorded Heart rate Oxygen saturation Oxygen saturation in Arterial blood by Pulse oximetry Systolic blood pressure Diastolic blood pressure Provider Name and Address Organization Details Last Updated DateTime 2 74 /min 98 % 98 % 176 mm[Hg] 81 mm[Hg] Xavitrustalin gant [facility] 2 15:24:11 Date Recorded Heart rate Oxygen saturation Oxygen saturation in Arterial blood by Pulse oximetry Systolic blood pressure Diastolic blood pressure Provider Name and Address Organization Details Last Updated DateTime 2 71 /min 97 % 97 % 167 mm[Hg] 74 mm[Hg] Nelida [place] [facility] 2 14:34:35 Social History Question Answer Notes LastModified by Organizat ion Details LastModified Time Tobacco Smoking Status Former Smoker Quit x 45 years Viridiana Alvarezbessie uriost[place]ui [place] [facility] 08/25/2018 14:25:11 What Is Your Level Of Alcohol Consumption? Occasional Information not available 08/25/2018 Are You Currently Employed? No Information not available 08/25/2018 Which Illicit Or Recreational Drugs Have You Used? No Information not available 08/25/2018 Education 4 Year College RN Informatio n not available 08/25/2018 What Is Your Occupation? Retired Information not available 08/25/2018 Live Alone Or With Others? With Others Information not available 08/25/2018 Marital Status Informatio n not available 08/25/2018 What Was The Date Of Your Most Recent Tobacco Screening? 12/23/2018 Information not available 01/07/2019 How Many Years Have You Smoked Tobacco? 10 Information not available 08/25/2018 Sex: Unknown Functional Status None recorded. Mental Status None recorded. Family History Relationship Description Onset Age of this Age Resolved Age Notes LastModified by Organization Details LastModified Time Mother Diabetes mellitus Not available 2018 14:24:46 Medical History Condition Response Arthritis Y Irritable Bowel Syndrome Y Hypertension Y High Cholesterol Y Gynecological HistoryNo gynecological history recorded. Obstetrics History GPAL:G 0 P 0 0 0 0 Past Encounters Encounter ID Performer Location Encounter Start Date Encounter Closed Date Diagnosis/Indication Diagnosis SNOMED-CT Code Diagnosis ICD10 Code Diagnosis Note [id number] Meme Ackerman MD [facility] [address] [place] [address] 08/25/2018 13:49:45 08/29/2018 11:10:41 Arthritis of right knee 8519084056 516425 M13.861 Neuritis o f saphenous nerve 252971201 G57.81 [id number] Meme Ackerman MD [facility] [address] [place] [address] 09/22/2018 13:03:21 09/24/2018 15:15:32 Arthritis of right knee 8119478610 758327 M13.861 Neuritis o f saphenous nerve 545153039 G57.81 [id number] Meme Ackerman MD [facility] [address] [place] [address] 09/25/2018 14:53:31 09/25/2018 15:58:43 Arthritis of right knee 1191541265 330607 M13.861 Neuritis o f saphenous nerve 605031483 G57.81 [id number] Meme Ackerman MD PAIN OFFICE [address] [facility] [address] 10/16/2018 13:34:02 10/16/2018 14:27:02 Arthritis of right knee 4890928276 971636 M13.861 Neuritis o f saphenous nerve 984816613 G57.81 Complex re gional pain syndrome of lower limb 746418745 G90.521 [id number] Meme Ackerman MD [facility] [address] [facility] [address] 11/06/2018 13:02:39 11/07/2018 10:17:20 Arthritis of right knee 6312480502 965018 M13.861 Neuritis o f saphenous nerve 629185415 G57.81 Complex re gional pain syndrome of lower limb 566941087 G90.521 Cervical radiculopathy 36132504 M54.12 [id number] Meme Ackerman MD [facility] [address] [facility] [address] 12/22/2018 14:01:20 12/23/2018 11:02:50 Arthritis of right knee 8079528317 834543 M13.861 Neuritis o f saphenous nerve 510600224 G57.81 Complex re gional pain syndrome of lower limb 199473619 G90.521 Cervical radiculopathy 45840660 M54.12 [id number] Meme Ackerman MD PAIN OFFICE [address] [facility] [place] [address] 01/19/2019 13:07:32 01/19/2019 14:16:46 Arthritis of right knee 8705757343 542746 M13.861 Neuritis o f saphenous nerve 260785223 G57.81 Complex re gional pain syndrome of lower limb 517897279 G90.521 Cervical radiculopathy 04644417 M54.12 Pain in ri ght hip joint 6550121791 11990 M25.551 [id number] Meme Ackerman MD PAIN OFFICE [address] [facility] [place] [address] 02/26/2019 15:30:27 03/06/2019 10:57:15 Arthritis of right knee 1924509163 674219 M13.861 Neuritis o f saphenous nerve 091461826 G57.81 Complex re gional pain syndrome of lower limb 432873673 G90.521 Cervical radiculopathy 58196033 M54.12 Pain in ri ght hip joint 5592726572 86651 M25.551 [id number] Meme Ackerman MD PAIN OFFICE [address] [facility] [place] [address] 07/13/2019 15:31:34 07/13/2019 16:55:10 Lumbar radiculopathy 202868667 M54.16 Degenerati on of lumbar intervertebral disc 89592276 M51.36 [id number] Meme Ackerman MD PAIN OFFICE [address] [facility] [place] [address] 07/14/2019 14:40:04 07/14/2019 16:30:24 Lumbar radiculopathy 353205110 M54.16 Degenerati on of lumbar intervertebral disc 88451416 M51.36 [id number] Meme Ackerman MD [facility] [address] [place] [address] 11/12/2019 14:28:36 11/12/2019 15:34:56 Lumbar radiculopathy 632592083 M54.16 Degenerati on of lumbar intervertebral disc 62368580 M51.36 [id number] Meme Ackerman MD [facility] [address] [place] [address] 12/08/2019 13:03:19 12/08/2019 16:17:32 Lumbar radiculopathy 598894983 M54.16 Degenerati on of lumbar intervertebral disc 88472297 M51.36 Arthritis of right knee 9478590382 492211 M13.861 [id number] Meme Ackerman MD [facility] [address] [place] [address] 01/18/2020 10:00:28 01/18/2020 10:05:33 Lumbar radiculopathy 030618165 M54.16 Degenerati on of lumbar intervertebral disc 15139760 M51.36 Arthritis of right knee 4663547192 521335 M13.861 [id number] Meme Ackerman MD [facility] [address] [place] [address] 02/26/2020 09:33:19 03/23/2020 11:08:03 Lumbar radiculopathy 919197217 M54.16 Degenerati on of lumbar intervertebral disc 07118246 M51.36 [id number] Meme Ackerman MD [facility] [address] [place] [address] 03/22/2020 13:53:02 03/22/2020 15:59:46 Lumbar radiculopathy 598095527 M54.16 Degenerati on of lumbar intervertebral disc 31443587 M51.36 Arthritis of right knee 8396891153 515669 M13.861 [id number] Meme Ackerman MD [facility] [address] [place] [address] 06/29/2020 11:22:43 06/29/2020 14:05:21 Lumbar radiculopathy 377788057 M54.16 Degenerati on of lumbar intervertebral disc 32067581 M51.36 Arthritis of right knee 7025459999 518966 M13.861 [id number] Meme Ackerman MD PAIN OFFICE [address] [place] [address] 12/07/2020 15:05:22 12/08/2020 11:11:51 Arthritis of right knee 9337544395 087583 M13.861 Neuritis o f saphenous nerve 858845286 G57.81 Complex re gional pain syndrome of lower limb 342919535 G90.521 Cervical radiculopathy 45042364 M54.12 Pain in ri ght hip joint 6043203459 39987 M25.551 [id number] Meme Ackerman MD PAIN OFFICE [address] [place] [address] 02/26/2022 15:15:06 02/27/2022 08:52:19 Lumbar radiculopathy 503264221 M54.16 Degenerati on of lumbar intervertebral disc 81864337 M51.36 [id number] Meme Ackerman MD PAIN OFFICE [address] [place] [address] 05/24/2022 14:25:07 05/24/2022 15:28:56 Arthritis of right knee 8879148469 978655 M13.861 Lumbosacra l radiculopathy 8356528 M54.17 Lumbar radiculopathy 128 212139 M54.16 Degenerati on of lumbar intervertebral disc 27785544 M51.36 Health Concerns Section Related Observation LastModified by Organization Detai ls LastModified Time None Recorded Concern Status LastModified by Organization Details LastModified Time None Recorded Advance Directives Directive None Recorded Payers Encounter Date Sequence Insurance Name Policy Number Policy Galicia Covered Member ID Galicia Member ID Guarantor Name 03/22/2020 1 [place]: [employer] Brooklynn Novak [id number] Brooklynn Novak 03/22/2020 2 [employer] OPTIONS (MEDICARE SUPPLEMENT) Brooklynn Novak [id number] Brooklynn Novak 06/29/2020 1 [place]: [employer] Brooklynn Barron Asinas [id number] Brooklynn Asinas 06/29/2020 2 [employer] OPTIONS (MEDICARE SUPPLEMENT) Brooklynn Asinas [id number] Brooklynn Asinas 12/07/2020 1 [place] NATIONAL GOVERNMENT SERVICES Brooklynn Barron Asinas [id number] Brooklynn Asinas 12/07/2020 2 [employer] HE[employer] OPTIONS (MEDICARE SUPPLEMENT) Brooklynn Asinas [id number] Brooklynn Asinas 02/26/2022 1 [place] NATIONAL GOVERNMENT SERVICES Brooklynn Barron Asinas [id number] Brooklynn Asinas 02/26/2022 2 [employer] HE[employer] OPTIONS (MEDICARE SUPPLEMENT) Brooklynn Asinas [id number] Brooklynn Asinas 05/24/2022 1 [place] NATIONAL GOVERNMENT SERVICES Brooklynn Barrno Asinas [id number] Brooklynn Asinas 05/24/2022 2 [employer] HE[employer] OPTIONS (MEDICARE SUPPLEMENT) Brooklynn Asinas [id number] Brooklynn Asinas Notes Date Note Type Note Provider Name and Address Organization Details Recorded Time 03/22/2020 text/html She is here for a lumbar epidural steroid injection under fluoroscopic guidance. Meme Ackerman MD [address] [facility] , [place] [address], [place], [address], [facility] - Pain Management 03/22/2020 16:17:10 06/29/2020 text/html She is here for a lumbar epidural steroid injection under fluoroscopic guidance. Meme Ackerman MD [address] [facility] , [place] [address], [place], [address], [facility] - Pain Management 06/29/2020 15:50:36 12/07/2020 text/html She is here for a repeat saphenous nerve block under ultrasound guidance. She reports some pain benefit after last injection. Meme Ackerman MD [address] [facility] , [facility] [address], [place], [address], [place] - [place] 12/12/2020 10:52:25 02/26/2022 text/html She is here for a follow up. She was last seen on 12/07/20. She states she has been having pain in her right knee radiating into right foot with numbness and feels unsteady and is inquiring about walking with a cane. She states her is anemic and is seeing Dr. Cheng and she has been taking care of him. She has no history of bladder or bowel incontinence.She has been doing a home exercise program. She is having a difficult time walking due to pain and is worried about travel. She states she need a note as she has a case in [place] for which she need to appear in court and is unable to travel due to various reasons. Meme Ackerman MD [address] , [address], [place], [address], [facility] Pain Management 02/27/2022 16:08:59 05/24/2022 text/html She is here for a follow up. She is complaining of pain in her leg with weakness in left foot ankle region. She states she has been having more balance issues. She is looking after her and he has been sick. He needs a walker and she has been folding and carrying the walker. She feels her pain may be associated with frequent lifting. She does not have a ride and hence has not scheduled a lumbar epidural steroid injection. She has no history of bladder or bowel incontinence Meme Ackerman MD [address] , [address], [place], [address], [facility] Pain Management 05/24/2022 15:39:41 OBGyn Episode No OBEpisode recorded.
--- OUTSIDE RECORDS SUMMARY | 2024-08-05 12:44 | XMS_ITS | Encounter Summary ---
Author Organization [facility] Address [address] [place] [address] Care Team Providers Care Medicaid Specialist Name Role Phone Brent Castillo MD Primary Care Provider [phone] Encounter Details Date Type Department Care Team (Late st Contact Info) Description 07/03/2024 [facility] [address] [place] [address] Yesi Campos MD [address] [place] [address] [place] [address] Social History Tobacco Use Types Packs/Day Years Used Date Smoking Tobacco: Former Smokeless Tobacco: Never Alcohol Use Standard Drinks/Week Comments Yes 0 (1 standard drink = 0.6 oz pur e alcohol) Comments Unknown Sex and Gender Information Value Date Recorded Sex Assigned at Not on file Legal Sex Female 10:15 AM EST Gender Identity Not on file Sexual Orientation Not on file documented as of this encounter Progress Notes * Yolanda Guaman - 07/03/2024 4:29 PM EST LVM for pt to cb and book with in [place]. (Ok for provider switch per ) documented in this encounter Plan of Treatment Upcoming Encounters Date Type Department Care Team (Late st Contact Info) Description 09/25/2024 11:20 AM EDT Office Visit [facility] [place] [address] [place] [address] Yesi Campos MD [facility] [address] [place] [address] 05/28/2025 2:00 PM EST Office Visit [facility] [place] [address] [facility] [address] [place] [phone] Franklin Whalen MD [address] [facility] [address] [place], [place] [id number] documented as of this encounter Visit Diagnoses Not on filedocumented in this encounter Care Teams Medicaid Specialist Relationship Specialty Start Date End Date Brent Castillo MD [address] [place] [address] PCP - General Plaster Machine Tender 12/15/21 documented as of this encounter
--- OUTSIDE RECORDS SUMMARY | 2024-08-05 12:44 | XMS_ITS | Patient Health Record ---
Author Organization [facility] Billing Info Address [address] [place], [place] [id number] Care Team Providers Care Retail Store Associate Name Role Phone LUCAS GUARDADO Unavailable [phone] LUCAS GUARDADO M.D. Unavailable Unavailable Reason For Referral No Information Plan Of Treatment No Information Insurance Providers Payer Name Payer Address Payer Phone Subscriber Number Group Number Insured Name Patient Relationship to Insured Coverage Start Date Coverage End Date [place] PART B [address] [facility] MELANY PEARSON [id number] Brooklynn Novak Self - patient is the insured 2 2 [facility] MEDICARE SUPPLEMENT [address] [address] [place], [place] [id number] Brooklynn Novak Self - patient is the insured 2 2
--- OUTSIDE RECORDS SUMMARY | 2024-08-05 12:44 | XMS_ITS | Encounter Summary ---
Author Organization [facility] Address [address] [place] [address] Care Team Providers Care Beverage Inspection Machine Tender Name Role Phone Brent Castillo MD Primary Care Provider [phone] Reason for Visit * Reason Onset Date Comments Echo results 07/06/2024 BP readings 07/06/2024 Encounter Details Date Type Department Care Team (Late Contact Info) Description 07/06/2024 Telephone [facility] [place] [facility] [place] [address] [address] Katherine Gannon MA Echo results; BP readings Social History Tobacco Use Types Packs/Day Years [...] as of this encounter Progress Notes * Katherine Gannon MA - 07/06/2024 4:47 PM EST Spoke to pt and relayed normal echo results and normal BP readings. documented in this encounter Plan of Treatment Upcoming Encounters Date Type Department Care Team (Late Contact Info) Description 09/25/2024 11:20 AM EDT Office Visit [facility] [address] [address] Yesi Campos MD [address] [facility] [address] [place] [phone] 05/28/2025 2:00 PM EST Office Visit [facility] [place] [facility] [place] [address] [facility] [place] [address] [place] [phone] Franklin Whalen MD [address] [facility] [address] [place], [place] [phone] documented as of this encounter Visit Diagnoses Not on filedocumented in this encounter Care Teams Beverage Inspection Machine Tender Relationship Specialty Start Date End Date Brent Castillo MD [address] [place] [address] PCP - General Kidney Puller 12/15/21 documented as of this encounter
--- OUTSIDE RECORDS SUMMARY | 2024-08-05 12:44 | XMS_ITS | Clinical Summary ---
Author Organization [facility] [place] Address [address] [place] [address] Phone Care Team Providers Care Workers Compensation Claims Specialist Name Role Phone Brent Castillo MD Primary Care Provider [phone] Allergies Active Allergy Reactions Criticality Noted Date Comments Audie Inhibitors 09/21/2021 Contraindicated with monthly bee venom injection Bee Venom Protein (Honey Bee) Swelling 05/19/2020 Beta-Blockers (Beta-Adrenergic Blocking Agts) 09/21/2021 Bradycardia Fentanyl 02/17/2021 Other reaction(s): UNKNOWN Medications clonazePAM (KlonoPIN) 1 mg tablet 1 tablet (1 mg total) 2 (two) times a day. 0 Active diphenoxylate-at ropine (LOMOTIL) 2.5-0.025 mg per tablet Take 1 tablet by mouth every 6 (six) hours as needed for diarrhea. 4 Active EPINEPHrine (EPIPEN) 0.3 mg/0.3 mL injection epinephrine 0.3 mg/0.3 mL injection, auto-injector USE DIRECTED FOR ANAPHYLAXIS AND CALL 911 8 Active lidocaine (ZTlido) 1.8 % adhesive patch,medicated ZTlido 1.8 % topical patch APPLY 1 PATCH EXTERNALLY TO THE SKIN ONCE DAILY. MAY WEAR FOR UP TO 12 HOURS Active simvastatin (ZOCOR) 20 mg tablet Take 1 tablet (20 mg total) by mouth 1 (one) time each day. 1 Active Lactobacillus acidophilus (PROBIOTIC ACIDOPHILUS ORAL) 1 (one) time each day. 9 Active olmesartan (BENICAR) 5 mg tablet Take 2 tablets (10 mg total) by mouth 1 (one) time each day. 180 tablet 3 4 Active Active Problems Problem Noted Date Diagnosed Date Acquired hammer toe of left foot 02/04/2024 Epigastric pain 02/04/2024 Pain of left hip joint 12/05/2022 Trochanteric bursitis of left hip 12/05/2022 Loosening of knee joint prosthesis 10/23/2022 Arthritis of right knee 06/01/2021 Cervical radiculopathy 06/01/2021 Lumbar radiculopathy 06/01/2021 Complex regional pain syndrome type 2 of lower e xtremity 06/01/2021 Degeneration of lumbar intervertebral disc 06/01 Neuritis of right saphenous nerve 06/01/2021 HTN (hypertension) 09/14/2020 Palpitations 06/16/2020 Overview (04/19/2024): Hypertension Sinus tachycardia cristofer--2017--normal pefusion, EF>70 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, chronic pain requiring epidural pain injections Echo--06/16/20--EF>70, normal strain, normal studyu 30 day loop Lipids--[id number], HDL57, TG151, BGA386 Complex regional pain syndrome of lower limb 07/2018 Bilateral tinnitus 05/17/2017 Chest pain 05/17/2017 Primary osteoarthritis involving multiple joints 05/17/2017 Hyperlipidemia 10/04/2016 Encounters Date Type Department Care Team Description 07/06/[address] [place] [facility] [place] [address] [address] Katherine Gannon MA Echo results; BP readings 07/03/2024 Telephone [facility] [place] [address] [place] [address] Yesi Campos MD 07/01/2024 2:15 PM EST Ancillary Procedure [facility] [place] [facility] [place] [address] [address] Palpitations; Primary hypertension 05/29/2024 12:30 PM EST Office Visit [facility] [place] [address] [address] Franklin Whalen MD Palpitations (Primary Dx); Primary hypertension; Hyperlipidemia, unspecified hyperlipidemia type from Last 3 Months Immunizations Name Administration Dates Next Due Influenza trivalent, 0.5mL ( Fluzone High-dose) 65yo and older 03/14/2018 Influenza trivalent, with pr eservative (Fluzone; Afluria) 6mo and older 03/06/2014,03/08/2013,03/25/2010 Influenza, Unspecified 04/03/2019,03/25/2009 Pfizer SARS-CoV-2 COVID-19, mRNA, LNP-S, preservative free 08/12/2020,07/22/2020 Pneumococcal conjugate 13 va lent (Prevnar 13, PCV13) 2mo and older 05/17/2017 Pneumococcal polysaccharide 23 valent (Pneumovax 23) 2yo and older 03/17/2004 Td Tetanus diptheria, preser vative free (Tenivac) 7yo and older 03/17/2001 Tdap Tetanus diptheria acell ular pertussis (Boostrix; Adacel) 7yo and older 12/20/2011 Medical History Medical History Date Comments Vertigo DX:Vertigo Tachycardia DX:Tachycardia Osteoarthritis DX:Osteoarthriti s Hyperlipidemia DX:Hyperlipidemi a Hypertension DX:Hypertension Rheumatic fever DX:Rheumatic fev er Family History Medical History Relation Name Comments Diabetes Mother Colon cancer Neg Hx Colon polyps Neg Hx Relation Name Status Comments Mother Social History Tobacco Use Types Packs/Day Years Used Date Smoking Tobacco: Former Smokeless Tobacco: Never Tobacco Cessation:Counseling Given: Not Answered Alcohol Use Standard Drinks/Week Comments Yes 0 (1 standard drink = 0.6 oz pur e alcohol) Comments Unknown Sex and Gender Information Value Date Recorded Sex Assigned at Not on file Legal Sex Female 10:15 AM EST Gender Identity Not on file Sexual Orientation Not on file Obstetrics History Last Filed Vital Signs Vital Sign Reading Time Taken Comments Blood Pressure 140/80 05/29/2024 12:32 PM EST Pulse 57 05/29/2024 12:32 PM EST Temperature - - Respiratory Rate - - Oxygen Saturation 99% 05/29/2024 12:32 PM EST Inhaled Oxygen Concentration - - Weight 68.5 kg (151 lb) 05/29/2024 12:32 PM EST pt reported Height 162.6 cm (5' 4 ) 05/29/2024 12:32 PM EST Body Mass Index 25.92 05/29/2024 12:32 PM EST Plan of Treatment Upcoming Encounters Date Type Department Care Team (Late st Contact Info) Description 09/25/2024 11:20 AM EDT Office Visit [facility] [place] [address] [place] [address] Yesi Campos MD [address] [facility] [address] [place] [phone] 05/28/2025 2:00 PM EST Office Visit [facility] [place] [address] [facility] [address] [place] [address] Franklin Whalen MD 19 [facility] 45 [place], [place] [phone] Health Maintenance Due Date Last Done Comments Zoster Vaccines (1 of 2) 1989 DTaP,Tdap,and Td Vaccines (3 - Td or Tdap) 12/19/2021 12/20/2011, 03/17/2001 Cholesterol Screening (Lipid Panel) 05/24/2022 Depression Screening 05/24/2022 Falls Risk Assessment 05/24/2022 Medicare Annual Wellness Visit 05/24/2022 Osteoporosis Screening (Bone Density Screening) 05/24/2022 Social Influencers of Health Screening 05/24/2022 Hypertension/CHF/CAD Annual BMP Blood Test 05/25/2022 COVID-19 Vaccine ( season) 2024 04/20/2022, 12/10/2021, 03/21/2021, Additional history exists RSV Immunization Patients 60+ Years Old Completed 05/16/2023 Influenza Vaccine Completed 03/05/2024, , 03/03/2022, Additional history exists Pneumococcal Vaccine: 50+ Years Completed 03/05/2024, 05/17/2017, 04/25/2015, Additional history exists HIB Vaccines Aged Out No longer eligi ble based on patient's age to complete this topic HPV Vaccines Aged Out No longer eligi ble based on patient's age to complete this topic Hepatitis A Vaccines Aged Out No long er eligible based on patient's age to complete this topic Hepatitis B Vaccines Aged Out No long er eligible based on patient's age to complete this topic IPV Vaccines Aged Out No longer eligi ble based on patient's age to complete this topic MMR Vaccines Aged Out No longer eligi ble based on patient's age to complete this topic Meningococcal ACWY Vaccine Aged Out N o longer eligible based on patient's age to complete this topic Meningococcal B Vacine Aged Out No lo nger eligible based on patient's age to complete this topic RSV Immunization Patients Under 20 months Aged Out No longer eligible based on patient's age to complete this topic Varicella Vaccines Aged Out No longer eligible based on patient's age to complete this topic Procedures Procedure Name Priority Date/Time Associated Diagnosis Comments TRANSTHORACIC ECHOCARDIOGRAM (TTE) COMPLETE Routine 07/01/2024 2:51 PM EST Palpitations Primary hypertension ECG 12-LEAD Routine 05/29/2024 5:59 PM EST Palpitations Primary hypertension from Last 3 Months Results * TRANSTHORACIC ECHOCARDIOGRAM (TTE) COMPLETE (07/01/2024 2:51 PM EST) Anatomical Region Laterality Modality Ultrasound Franklin Whalen MD CV ECHO PROCEDURES Final Re sult * ECG 12 lead (05/29/2024 5:59 PM EST) Impressions Cecilia Ortiz - 05/29/2024 5:59 PM EST NSR 56, ns t changes Franklin Whalen MD ECG ORDERABLES Final Resul t from Last 3 Months Insurance [facility] Advance Directives Documents on File Type Date Recorded Patient Repairer Expl anation Health Care Decision (hx) 09/10/2021 ZAC ALSTON DIRECTIVE Care Teams Workers Compensation Claims Specialist Relationship Specialty Start Date End Date Brent Castillo MD [address] [place] [address] PCP - General Extension Course Coordinator 12/15/21
--- OUTSIDE RECORDS SUMMARY | 2024-08-05 12:45 | XMS_ITS | Clinical Summary ---
Author Organization [facility] Address [address] [place] [address] Care Team Providers Care Garnett Room Worker Name Role Phone Brent Crisostomo MD Primary Care Provider [phone] Allergies Active Allergy Reactions Criticality Noted Date Comments Audie Inhibitors 09/21/2021 Contraindicated with monthly bee venom injection Bee Sting Swelling 05/19/2020 Beta Adrenergic Blockers 09/21/2021 Bradycardia Fentanyl 02/17/2021 Other reaction(s): UNKNOWN Medications Medication Sig Dispensed Refills Start Date End Date Status clonazePAM (KlonoPIN) 1 MG tablet Take 0.5 mg by mouth daily. 0 05/10/2020 Active simvastatin (ZOCOR) tablet 20 mg Take 1 tablet (20 mg total) by mouth daily. 0 08/10/2020 Active amoxicillin (AMOXIL) 500 MG capsule Dental work 0 Active EPINEPHrine 0.3 MG/0.3ML SOAJ epinephrine 0.3 mg/0.3 mL injection, auto-injector USE DIRECTED FOR ANAPHYLAXIS AND CALL 911 0 01/06/2018 Active Lidocaine (ZTlido) 1.8 % PTCH ZTlido 1.8 % topical patch APPLY 1 PATCH EXTERNALLY TO THE SKIN ONCE DAILY. MAY WEAR FOR UP TO 12 HOURS 0 Active loperamide (IMODIUM) 1 MG/7.5ML solution Take 15 mL (2 mg total) by mouth. 0 03/12/2019 Active meclizine (ANTIVERT) 12.5 MG tablet Take 1 tablet (12.5 mg total) by mouth 3 (three) times a day as needed. 30 tablet 0 09/21/2021 Active olmesartan (BENICAR) tablet 20 mg Take 0.5 tablets (10 mg total) by mouth daily. Take half tab daily (please cancel any prior dose) 45 tablet 3 06/14/2023 Active colestipol (COLESTID) 1 g tabletIndications:B ile salt-induced diarrhea Take 1 tablet (1 g total) by mouth daily. 90 tablet 1 12/13/2023 Active diphenoxylate-atrop ine (LOMOTIL) 2.5-0.025 MG per tabletIndications:D iarrhea, unspecified type Take 1 tablet by mouth every 6 (six) hours as needed for diarrhea. 30 tablet 1 12/17/2023 Active Active Problems Problem Noted Date Diagnosed Date DVT prophylaxis 02/04/2024 02/04/2024 Acquired hammer toe of left foot 02/04/2024 02/04/2024 Epigastric pain 02/04/2024 02/04/2024 Pain of left hip joint 12/05/2022 Trochanteric bursitis of left hip 12/05/2022 02/04/2024 Loosening of knee joint prosthesis 10/23/2022 02/04/2024 Arthritis of right knee 06/01/2021 Cervical radiculopathy 06/01/2021 Lumbar radiculopathy 06/01/2021 Complex regional pain syndrome type 2 of lower e xtremity 06/01/2021 Degeneration of lumbar intervertebral disc 06/01 Neuritis of right saphenous nerve 06/01/2021 HTN (hypertension) 09/14/2020 Palpitations 06/16/2020 Overview: Hypertension Sinus tachycardia cristofer--2017--normal pefusion, EF>70 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, chronic pain requiring epidural pain injections Echo--06/16/20--EF>70, normal strain, normal studyu 30 day loop Lipids--[id number], HDL57, TG151, EMV901 Complex regional pain syndrome of lower limb 07/2018 Chest pain 05/17/2017 Primary osteoarthritis involving multiple joints 05/17/2017 Bilateral tinnitus 05/17/2017 Hyperlipidemia 10/04/2016 Immunizations Name Administration Dates Next Due Influenza Trivalent (Fluzone High Dose) 0.7 mL (65yrs &>) 03/14/2018 Influenza Trivalent (Fluzone /Afluria) 5.0mL Multi-dose Vial 03/06/2014,03/08/2013,03/25/2010 Influenza Vaccine, Unspecified formulation 04/03,03/25/2009 Pneumococcal Conjugate PCV13 05/17/2017 Pneumococcal Polysaccharide PPSV23 03/17/2004 Td (Tenivac) 03/17/2001 Tdap 12/20/2011 Family History Medical History Relation Name Comments Diabetes Mother Colon cancer Neg Hx Colon polyps Neg Hx Relation Name Status Comments Mother Social History Tobacco Use Types Packs/Day Years Used Date Smoking Tobacco: Former Cigarettes Passive Smoke Exposure: Past Smokeless Tobacco: Never Tobacco Cessation:Counseling Given: Not Answered Alcohol Use Standard Drinks/Week Comments Yes 0 (1 standard drink = 0.6 oz pur e alcohol) occ Sex and Gender Information Value Date Recorded Sex Assigned at Female 09/25/2022 3:07 PM EDT Gender Identity Female 09/25/2022 3:07 PM EDT Sexual Orientation Not on file Job Start Date Occupation Industry Not on file Not on file Not on file Last Filed Vital Signs Vital Sign Reading Time Taken Comments Blood Pressure 144/74 12/13/2023 2:15 PM EDT Pulse 70 12/13/2023 2:15 PM EDT Temperature 36.6 ??C (97.8 ??F) 08/17/2022 3:02 PM ES T Respiratory Rate - - Oxygen Saturation 99% 12/13/2023 2:15 PM EDT Inhaled Oxygen Concentration - - Weight 68.1 kg (150 lb 3.2 oz) 12/13/2023 2:15 P M EDT Height 162.6 cm (5' 4 ) 12/13/2023 2:15 PM EDT Body Mass Index 25.78 12/13/2023 2:15 PM EDT Plan of Treatment Health Maintenance Due Date Last Done Comments Depression Screening 1952 Preventative Health Evaluation 1957 Shingrix-Zoster Vaccine (1 of 2) 1989 Fall Risk Assessment 02/26/2004 Osteoporosis Screening (DEXA Scan) 02/26/2004 RSV Adult > 60+ Yrs or (1 - 1-dose 75+ series) 2014 DTap / Tdap / Td (2 - Td or Tdap) 12/19/2021 12/20/2011, 03/17/2001 COVID-19 Vaccine (3 - 2024-25 season) 2024 08/12/2020, 07/22/2020 Influenza Vaccine (#1) 2024 8, 03/06/2014, 03/08/2013, Additional history exists Pneumococcal Vaccine Completed 05/17/2017, 03/17/20 04 Hepatitis B Vaccines Aged Out No long er eligible based on patient's age to complete this topic RSV Ped < 20 months Aged Out No longe r eligible based on patient's age to complete this topic Care Teams Garnett Room Worker Relationship Specialty Start Date End Date Brent Crisostomo MD [address] [address] PCP - General Aircraft Mechanic Armament 05/04/22
--- OUTSIDE RECORDS SUMMARY | 2024-08-05 12:45 | XMS_ITS | Encounter Summary ---
Author Organization [facility] Address [address] [place] [address] Care Team Providers Care Lay Out Worker Name Role Phone Thierry Leslie MD Primary Care Provider [phone] Thierry Leslie MD Unavailable [phone] Brent Crisostomo MD Primary Care Provider [phone] Encounter Details Date Type Department Care Team (Late st Contact Info) Description 09/03/2023 Scanned Document [facility] [address] [place] [address] Ruben Harrell MD [address] [place] [address] Social History Tobacco Use Types Packs/Day Years Used Date Smoking Tobacco: Never Assessed Sex and Gender Information Value Date Recorded Sex Assigned at Female 07/04/2023 5:58 AM EST Gender Identity Female 07/04/2023 5:58 AM EST Sexual Orientation Heterosexual (straight) 07/04 5:58 AM EST documented as of this encounter Plan of Treatment Not on file documented as of this encounter Visit Diagnoses Not on filedocumented in this encounter Care Teams Lay Out Worker Relationship Specialty Start Date End Date Thierry Leslie MD [address] [place] [address] PCP - General Internal Medicine 07/07/20 10/15/23 Brent Crisostomo MD [address] [place] [address] PCP - General Internal Medicine 10/16/23 Thierry Leslie MD [address] [place] [address] Internal Medicine 07/07/20 10/15/23 documented as of this encounter
--- OUTSIDE RECORDS SUMMARY | 2024-08-05 12:45 | XMS_ITS | Encounter Summary ---
Author Organization [facility] Address [address] [place] [address] Care Team Providers Care Seeing Eye Dog Teacher Name Role Phone Thierry Leslie MD Primary Care Provider [phone] Thierry Leslie MD Unavailable [phone] Brent Crisostomo MD Primary Care Provider [phone] Encounter Details Date Type Department Care Team (Late st Contact Info) Description 08/20/2023 Scanned Document [facility] [address] [place] [address] Ruben Harrell MD [address] [place] [address] Social History Tobacco Use Types Packs/Day Years [...] on filedocumented in this encounter Care Teams Seeing Eye Dog Teacher Relationship Specialty Start Date End Date Thierry Leslie MD [address] [place] [address] PCP - General Internal Medicine 07/07/20 10/15/23 Brent Crisostomo MD [address] [place] [address] PCP - General Internal Medicine 10/16/23 Thierry Leslie MD [address] [place] [address] Internal Medicine 07/07/20 10/15/23 documented as of this encounter
--- OUTSIDE RECORDS SUMMARY | 2024-08-05 12:45 | XMS_ITS | Data Portability ---
Author Organization [facility] Carmen Bentley AONE Rueter Address [address] [place] [address] Care Team Providers Care Bean Sprout Grower Name Role Phone SID RAMOS Primary Care Provider Assessment Encounter Date Assessment Date Assessment LastModified by Organization Details LastModified Time 12/05/2022 12/05/2022 Symptoms are consistent with greater trochanteric bursitis. Aggravate alleviating factors were discussed. Treatment options were reviewed. We discussed anti-inflammatori es which she cannot take. We discussed physical therapy which she declined. She was eager to consider corticosteroid injection. The procedure was performed on today's visit. Patient tolerated the injection well. Postinjection instructions given. Frequency of injection was reviewed. Patient will follow-up in 3 to 4 weeks if symptoms have not improved, sooner for any complications. All questions answered to their satisfaction. [email or web address] Not available 12/05/2022 14:53:46 Plan of Treatment Reminders Order Date Submit Date Provider Last Modified By Organization Details Last Modified Time Details Appointments None recorded. Lab ESR (erythrocyt e sedimentati on rate), blood 2022 023 MIKE Not available 3 15:10:36 C-reactive protein, quantitativ e, serum or plasma 2022 023 MIKE Not available 3 10:09:15 Referral None recorded. Procedures None recorded. Surgeries None recorded. Imaging XR, hip, unilateral, 2 or 3 view 2022 023 [email or web address] [id number] [facility], [address], [place], [address], 3 21:24:01 XR, knee, 3 view 2022 023 [email or web address] [facility], [address], [facility] [address], [place], [address], 3 16:31:36 NM, bone scan, 3-phase - painful right total knee replacment. loosening suspected 2022 023 MIKE Not available 3 09:13:16 Medication Orders None recorded. Patient TargetsNo targets recorded. Patient Instructions Encounter Date Encounter Id Patient Instructions Last Modified By Organization Details Last Modified Time 10/23/2022 [id number] AP, lateral, and patellar radiographs of the right knee taken today demonstrate a right total knee replacement. There are lucent lines around the tibial component. These are circumferential. There is no signs of gross loosening. There is no signs of progression compared to x-rays from August. No signs of other hardware related complications. [email or web address] Not available 10/23/2022 15:16:10 12/05/2022 [id number] 2 views of the {{Right Left*}} hip were obtained in the [facility] [place]} } office. X-rays demonstrated normal bone mineralization. Femoral head sits well in the acetabulum. No significant degenerative changes. Calcifications noted in the lateral hip consistent with calcific bursitis. No evidence of acute injury or fracture. Images interpreted by: Adrian Pettit PA-C [email or web address] Not available 12/05/2022 14:53:02 Reason for Referral None Reported. Results Created Date Observation Date Name Description Value Unit Range Abnormal Flag Note LastModifiedBy Organization Detail LastModifiedTime 10/04/19 23 10/02/2022 NM, bone scan, 3-pha se No observ ation record ed. [email or web address] [facility] [address] [place], [address], 10/03/2022 16:40:45 Result Notes None recorded. Problems Name Problem SNOMED Code Status Onset Date Resolution Date Notes Provider Name and Address Organization Details Recorded Time Trochanteri c bursitis of left hip 5398476981945 03 Active [address], [place], [address], [place] [facility] 3 14:52:25 Pain of left hip joint 1935771810408 00 Active [address], [place], [address], [place] [facility] 3 14:52:28 Chronic pain following right total knee arthroplast y 5861966908001 9100 Active [address], [place], [address], [place] [facility] 3 13:55:37 Loosening of knee joint prosthesis 724845241 Active [address], [place], [address], [place] [facility] 3 15:16:27 Problem Notes None recorded. Procedures Surgical History Date Name Laterality Status Provider Name and Address Organization Details Recorded Time 3 JOURDAN Troch Bursa Inj completed [address], [place], [address], [place] [facility] 12/05/2022 14:52:14 Knee Surgery completed Sharri Zimmer [place] [facility] 09/25/2022 13:44:19 Imaging Results Imaging Date Name Status LastModified by Organiz ation Details LastModified Time 10/02/2022 NM, bone scan, 3-phase completed [email or web address] [facility] [address] [facility], [place], [address], 10/03/2022 16:40:45 Procedure Notes None recorded. Medical Equipment None Reported. Allergies Allergen ID Allergen Name Allergen Category Reaction Reaction Severity Criticality Documentation Date Start Date Code Code System Note Provider Name and Address Organization Details Recorded Time 2016 fentanyl medicatio n Not available Not available Not available 09/25/2022 [id number] RxNorm Sharri Zimmer null, [place] - [facility] 13:43:46 Medications Name Sig Start Date Stop Date Status Note LastModified by Organization Details LastModified Time clonazepam 1 mg tablet TAKE 1-2 TABLETS BY MOUTH AT BEDTIME active Not Available Not Available No t Available diphenoxyla te-atropine 2.5 mg-0.025 mg tablet TAKE ONE TABLET BY MOUTH FOUR TIMES A DAY NEEDED FOR DIARRHEA active Not Available Not Available No t Available amlodipine 2.5 mg tablet TAKE ONE TABLET BY MOUTH EVERY DAY active Not Available Not Available No t Available acetaminoph en 300 mg-codeine 30 mg tablet TAKE ONE TABLET BY MOUTH EVERY 8 HOURS NEEDED 12/05 completed Not Available Not Available Not Available tramadol 50 mg tablet TAKE ONE TABLET BY MOUTH FOUR TIMES A DAY NEEDED DIRECTED active Not Available Not Available No t Available meloxicam 7.5 mg tablet TAKE ONE TABLET BY MOUTH EVERY DAY WITH FOOD active Not Available Not Available No t Available simvastatin 20 mg tablet TAKE ONE TABLET BY MOUTH AT BEDTIME active Not Available Not Available No t Available epinephrine 0.3 mg/0.3 mL injection, auto-inject or USE DIRECTED FOR ANAPHYLAX IS AND CALL 911 active Not Available Not Available No t Available ZTlido 1.8 % topical patch APPLY 1 PATCH TOPICALLY TO SKIN ONCE DAILY - MAY WEAR UP TO 12 HOURS active Not Available Not Available No t Available Flowflex COVID-19 Antigen Home Test kit USE DIRECTED PER [employer] TO TEST FOR COVID-19 12/05 completed Not Available Not Available Not Available Vitals Date Recorded Body height Body mass index (BMI) Body weight Provider Name and Address Organization Details Last Updated DateTime 09/25/2022 162.56 cm 26.8 kg/m2 32041.41 moo Pilidonell Sesaynes [place] - [facility] 09/25/2022 13:44:00 Date Recorded Body height Body mass index (BMI) Body weight Provider Name and Address Organization Details Last Updated DateTime 10/23/2022 162.56 cm 26.8 kg/m2 30741.41 moo Sharri Zimmer [facility] 10/23/2022 14:48:16 Date Recorded Body height Body mass index (BMI) Body weight Provider Name and Address Organization Details Last Updated DateTime 12/05/2022 162.56 cm 26.8 kg/m2 [address] [facility], 12/05/2022 13:52:24 Social History None recorded. Functional Status None recorded. Mental Status None recorded. Family History Relationship Description Onset Age of this Age Resolved Age Notes LastModified by Organization Details LastModified Time Mother Diabetes mellitus [email or web address] Not available 2022 13:44:14 Medical History Condition Response Hypertension Y Gynecological HistoryNo gynecological history recorded. Obstetrics History GPAL:G 0 P 0 0 0 0 Past Encounters Encounter ID Performer Location Encounter Start Date Encounter Closed Date Diagnosis/Indication Diagnosis SNOMED-CT Code Diagnosis ICD10 Code Diagnosis Note [id number] MD [place] [id number] 09/25/2022 13:21:18 09/25/2022 14:08:23 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 6456668448 7061695 T84.84XA [id number] Luis Zuniga MD [address] [address] 10/23/2022 14:25:16 10/23/2022 15:16:52 History of right total knee replacement 8554957445 925099 Z96.651 Loosening of knee joint prosthesis 806986633 T84.032D [id number] Luis Zuniga MD [address] [address] 12/05/2022 13:23:57 12/05/2022 15:32:21 Pain of left hip joint 8282787752 50030 M25.552 Trochanter ic bursitis of left hip 7236801597 37634 M70.62 Health Concerns Section Related Observation LastModified by Organization Detai ls LastModified Time None Recorded Concern Status LastModified by Organization Details LastModified Time None Recorded Advance Directives Directive None Recorded Payers Encounter Date Sequence Insurance Name Policy Number Policy Galicia Covered Member ID Galicia Member ID Guarantor Name 09/25/2022 1 MEDICARE B-CT: NELLA Novak [id number] Brooklynn Novak 09/25/2022 2 [employer] OPTIONS (MEDICARE SUPPLEMENT) Brooklynn Novak [id number] Brooklynn Novak 10/23/2022 1 MEDICARE B-CT: NELLA Novak [id number] Brooklynn Novak 10/23/2022 2 [facility] HE[facility] OPTIONS (MEDICARE SUPPLEMENT) Brooklynn Novak [id number] Brooklynn Novak 12/05/2022 1 MEDICARE B-CT: NELLA Novak [id number] Brooklynn Novak 12/05/2022 2 [facility] HE[employer] OPTIONS (MEDICARE SUPPLEMENT) Brooklynn Novak [id number] Brooklynn Novak Notes Date Note Type Note Provider Name and Address Organization Details Recorded Time 09/25/2022 text/html HPI:? Thank you for the pleasure of requesting a consultation on this patient. Patient comes in complaining of right knee pain.Patient underwent a right medial unicompartmental knee replacement in 2015. This was complicated by failure of the Uni, collapse into varus. She underwent a revision knee replacement with conversion to a total knee replacement in 2017. She states she has not done well following the surgery. She reports pain that has worsened really since the surgery. She has a ALTE with ambulation. She has done a number of pain treatments. She has done ablation and saphenous nerve injection. These have only brought temporary relief. She does lidocaine patches which bring some relief. Review of systems is negative for rapidly progressive neurological disorder, chest pain, shortness of breath, fevers, chills, or any signs of active or persistent local or systemic infection. Physical Exam: Patient is well nourished, well-developed, in no acute distress, with appropriate mood and affect. The patient is oriented to time, place, and person. Respirations are even and unlabored. Gait evaluation does reveal a limp. There is no inguinal adenopathy. Examination of the contralateral knee shows normal range of motion, strength, no tenderness, and intact skin. The affected limb is well-perfused, shows a grossly normal motor and sensory examination. The previous skin incision is well-healed. Right knee motion is significantly reduced and does cause significant pain. The knee moves from 5-110 degrees. Some laxity (~3 mm) with varus valgus stress. No significant laxity with AP stress.. The alignment of the knee is {{varus valgus neutral *}}. Muscle strength is normal. Pedal pulses are palpable. Hip examination, including flexion and internal rotation, was negative in that groin pain was not produced. Imaging: Radiographs of the right knee from August 2022 demonstrate a right total knee replacement. There are lucent lines and lucencies underneath the tibial component. No signs of gross loosening. No signs of periprosthetic fracture. No signs of other hardware related complications. Assessment/Plan: Patient has pain in the presence of a right total knee replacement. Radiographs could be suggestive of the tibial component loosening. First I would like to look to rule out periprosthetic joint infection. We are going to get ESR and CRP. I also want her further work-up for possible loosening, with a three-phase bone scan. She will follow-up with me after these tests are complete for further discussion. Luis Zuniga MD [address], [place], [address], [place] [facility] 09/25/2022 14:01:01 10/23/2022 text/html HPI:? patient comes in for follow-up for her right knee pain, status post right total knee replacement in 2016. I last saw her in September. I ordered ESR and CRP. These were negative. I ordered a bone scan. There was concern for tibial loosening in the x-ray. The bone scan was not suggestive of loosening. She states her symptoms are worse. She describes start up pain, with pain when standing, and then it goes away after walking. The pain continues to worsen. She describes 10 out of 10 pain. Review of systems is negative for rapidly progressive neurological disorder, chest pain, shortness of breath, fevers, chills, or any signs of active or persistent local or systemic infection. Physical Exam: Patient is well nourished, well-developed, in no acute distress, with appropriate mood and affect. The patient is oriented to time, place, and person. Respirations are even and unlabored. Gait evaluation does reveal a limp. There is no inguinal adenopathy. Examination of the contralateral knee shows normal range of motion, strength, no tenderness, and intact skin.The affected limb is well-perfused, shows a grossly normal motor and sensory examination. The previous skin incision is well-healed. Joint line tenderness, along the proximal tibia. Right knee motion is significantly reduced and does cause significant pain. The knee moves from 5-110 degrees. Some laxity (~3 mm) with varus valgus stress. No significant laxity with AP stress.. The alignment of the knee is neutral. Muscle strength is normal. Pedal pulses are palpable. Hip examination, including flexion and internal rotation, was negative in that groin pain was not produced. 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 An extensive discussion was conducted on the variety of surgical and non-surgical treatment options available to the patient. A risk/benefit analysis was discussed with the patient reviewing the advantages and disadvantages of surgical intervention at this time. A full explanation was given of the nature and the purpose of the procedure and anesthesia, its benefits, possible alternative methods of diagnosis of treatment, the risks involved, the possibility of complications, the foreseeable consequences of the procedure and the possible results of the non-treatment. No guarantee or assurance was made as to the results that may be obtained. Specifically, the risks were identified to include, but are not limited, to the following: Infection, phlebitis, pulmonary embolism, , paralysis, dislocation, pain, stiffness, instability, limp, weakness, breakage, leg-length inequality, uncontrolled bleeding, nerve injury, blood vessel injury, pressure sores, anesthetic risks, delayed healing of wound and bone, and wear and loosening. Discussed with patients that these risks are increased compared to primary knee replacement surgery. Further discussion was undertaken with the patient about the details of surgical preparation, treatment and postoperative rehabilitation including medical clearance, the hospital course and the postoperative rehabilitation involved. As a part of routine preoperative counseling, the patient either denies recent smoking history or, after education was provided, agrees to practice smoking cessation over at least two months prior to surgery. The patient has also been counseled regarding the elevated risk of surgical complications in patients with an elevated BMI. The patient demonstrates understanding of the increased risk in such patients. The patient was encouraged to participate in physical activity and diet modification under the direction of their primary care physician. We will plan on proceeding with right total knee arthroplasty using the AdTrib Triathlon TS revision total knee replacement system. However, it is possible during the preoperative planning process or due to intraoperative findings that a different implant system may be utilized in order to optimize the patient's outcome. We had a discussion regarding implant and bearing options. We had a detailed discussion of the advantages and limitations of the specific implant designs, materials and bearing surfaces. All questions were answered to the patient's satisfaction, and the patient was asked to call the office with any further concerns. All in all, I feel that this patient is a good candidate for surgical reconstruction.? I discussed with patient, that we cannot be certain of her diagnosis. The bone scan did not suggest loosening, but this is not always definitive. Her symptoms and x-ray are consistent with loosening, so I think there is reasonable chance that there is tibial component loosening. I discussed potentially a 70% chance of her getting relief with revision surgery, with 20% chance of her being the same, 10% chance of her being worse I went into detail of revision surgery as above. She is going to think about her options. If she would like to proceed with surgery, she will call us for scheduling. Otherwise, she will follow-up with me in 6 months with repeat x-rays of the right knee at that time.. Luis Zuniga MD [address], [place], [address], [place] [facility] 10/23/2022 15:16:40 12/05/2022 text/html Patient is an 82-year-old female who presents today with left lateral hip pain for 5 days. She is known to Dr. 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 She already had a previous revision and this would be the second. She is considering her options. Her current complaint is left hip pain for 5 days. She was doing yoga and thinks she may have overdone it. She now has pain in the lateral hip which worsens when she is going up and down stairs. She has difficulty sleeping on her left side. No groin pain. No fever or chills. No locking or giving out of her leg. No numbness or tingling ADRIAN PETTIT PA-C [address], [place], [address], [place] [facility] 12/05/2022 14:54:29 OBGyn Episode No OBEpisode recorded.
--- OUTSIDE RECORDS SUMMARY | 2024-08-05 12:45 | XMS_ITS | Encounter Summary ---
Author Organization [facility] Address [address] [place] [address] Care Team Providers Care Fisheries Inspector Name Role Phone Brent Crisostomo MD Primary Care Provider Reason for Visit * Reason Comments PT Treatment Encounter Details Date Type Department Care Team (Late st Contact Info) Description 07/16/2024 1:00 [place] [address] Merly Cannon, PT [address] [place] [address] Chronic pain of right knee (Primary Dx) Social History Tobacco Use Types Packs/Day Years Used Date Smoking Tobacco: Never Assessed Sex and Gender Information Value Date Recorded Sex Assigned at Female 07/04/2023 5:58 AM EST Gender Identity Female 07/04/2023 5:58 AM EST Sexual Orientation Heterosexual (straight) 07/04 5:58 AM EST documented as of this encounter Miscellaneous Notes * Daily/Treatment Note - Merly Cannon, PT - 07/16/2024 1:00 PM EST Images from the original note were not included. Physical Therapy Daily Note Referring Provider: MEDARDO RANDOLPH Diagnoses ICD-10-CM 1. Chronic pain of right knee M25.561 G89.29 Subjective: Daily Note Subjective - Patti July 16, 2024 Row Name Treatment from 07/16/2024 in [facility] Subjective Subjective The doctor gave me a R knee brace to wear in community. and continue PT. Treatment Performed: Interventions - SatJuly 16, 2024 Row Name Treatment from 07/16/2024 in [facility] Therapeutic Procedures Justification to increase range of motion, strength and endurance 10 supine pirformis stretch 2 x 30 sec 17 recumbent bike L1 x 8 min 19 supine ITB strap stretch each LE x 10 reps/10 sec hold 20 standing lunges 3 ways with slider x 10 reps each LE with UE support 2 sets/10 reps Assessment/ Plan: Daily Assessment and Plan - [facility] July 16, 2024 Row Name Treatment from 07/16/2024 in [facility] Assessment/ Plan Assessment R > L ITB tightness. Plan Add SLB. Objective Measurements: Knee Musculoskeletal Exam Goals Addressed This Visit's Progress PT LTG 1 On track Patient will improve right hip strength at all planes to 4+ out of 5 to be able to ambulate up and down 13 stairs with 1 rail reciprocally with less than 2 out of 10 right knee pain within 8 weeks. Patient will be able to perform sit to stand transfers without upper extremity support without lossof balance modified independent 5 out of 5 times with less than 2 out of 10 right knee pain within 8 weeks. Decrease LEFS score by 20 points within 8 weeks. PT Charges - Patti July 16, 2024 Row Name Treatment from 07/16/2024 in [facility] Treatments-Timed Charges $ Therapeutic Procedures (units)- 44312 2 Therapeutic Procedure (minutes) 30 Therapy Totals TOTAL Number of TIMED UNITS 2 TOTAL Number of TIMED MINUTES 30 TOTAL Number of ALL UNITS Performed this Session 2 TOTAL Number of ALL MINUTES with the Patient This Session 30 documented in this encounter Plan of Treatment [...] Therapy On track( 025 1:26 PM EST) Merly Hitchcock, PT Note: Patient will improve right hip [...] as of this encounter Visit Diagnoses Diagnosis Chronic pain of right knee- Primary documented in this encounter Care Teams Fisheries Inspector Relationship Specialty Start Date End Date Brent Crisostomo MD [address] [place] [address] PCP - General Internal Medicine 10/16/23 documented as of this encounter
--- OUTSIDE RECORDS SUMMARY | 2024-08-05 12:45 | XMS_ITS | Encounter Summary ---
Author Organization [facility] Address [address] [place] [address] Care Team Providers Care Oracle Bpm Consultant Name Role Phone Thierry Leslie MD Primary Care Provider [phone] Thierry Leslie MD Unavailable [phone] Brent Crisostomo MD Primary Care Provider [phone] Encounter Details Date Type Department Care Team (Late st Contact Info) Description 09/03/2023 Scanned Document [facility] [address] [place] [address] Ruben Harrell MD [address] [place] [address] Social History Tobacco Use Types Packs/Day Years [...] on filedocumented in this encounter Care Teams Oracle Bpm Consultant Relationship Specialty Start Date End Date Thierry Leslie MD [address] [place] [address] PCP - General Internal Medicine 07/07/20 10/15/23 Brent Crisostomo MD [address] [place] [address] PCP - General Internal Medicine 10/16/23 Thierry Leslie MD [address] [place] [address] Internal Medicine 07/07/20 10/15/23 documented as of this encounter
--- OUTSIDE RECORDS SUMMARY | 2024-08-05 12:45 | XMS_ITS | Encounter Summary ---
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, subsequent encounter Medardo Lockhart MD [address] [place] [address] [address] [place] [address] [facility] [facility] [place] [address] [place] [address] [place] [address] Referral ID Status Reason Start Date Expiration Date V isits Requested Visits Authorized [id number] Closed Support Services 05/27/2024 05/28/2025 1 12 Encounter Details Date Type Department Care Team (Late st Contact Info) Description 07/27/2024 1:00 PM EST Treatment [facility] [address] [place] [address] Merly Cannon, PT [address] [place] [address] Chronic pain of right knee (Primary Dx) Social History Tobacco Use Types Packs/Day Years Used Date Smoking Tobacco: Never Assessed Sex and Gender Information Value Date Recorded Sex Assigned at Female 07/04/2023 5:58 AM EST Gender Identity Female 07/04/2023 5:58 AM EST Sexual Orientation Heterosexual (straight) 07/04 5:58 AM EST documented as of this encounter Miscellaneous Notes * Daily/Treatment Note - Merly Prieto Kassandra, PT - 07/27/2024 1:00 PM EST Images from the original note were not included. Physical Therapy Daily Note Referring Provider: MEDARDO LOCKHART Diagnoses ICD-10-CM 1. Chronic pain of right knee M25.561 G89.29 Subjective: Daily Note Subjective - SatJuly 27, 2024 Row Name Treatment from 07/27/2024 in [facility] Subjective Subjective The ITB stretch really takes my R knee pain, but still hurts randomly when I go sit to stand or walking or stairs. Treatment Performed: Interventions - SatJuly 27, 2024 Row Name Treatment from 07/27/2024 in [facility] Manual therapy Justification to decrease spasm and pain;to increase capsular ROM and decrease pain 4 R patellar mobs all planes grade 3 Therapeutic Procedures Justification to increase range of motion, strength and endurance 10 supine pirformis stretch 2 x 30 sec 16 SLR 2 sets/10 reps with strap 17 recumbent bike L1 x 8 min 20 standing lunges 3 ways with slider x 10 reps each LE with UE support 2 sets/10 reps Assessment/ Plan: Daily Assessment and Plan - SatJuly 27, 2024 Row Name Treatment from 07/27/2024 in [facility] Assessment/ Plan Assessment Patient advised that she needs to incorporate strengtening B LE as well as stretching. Plan Question D/c PT next visit. Objective Measurements: Knee Musculoskeletal Exam Goals Addressed [...] points within 8 weeks. PT Charges - SatJuly 27, 2024 Row Name Treatment from 07/27/2024 in [facility] Treatments-Timed Charges $ Manual Therapy (units)- 33421 1 Manual Therapy (minutes) 10 $ Neuromuscular Re-ed (units)- 76796 0 Neuromuscular Re-ed (minutes) 5 $ Therapeutic Procedures (units)- 74445 1 Therapeutic Procedure (minutes) 23 Therapy Totals TOTAL Number of TIMED UNITS 2 TOTAL Number of TIMED MINUTES 38 TOTAL Number of ALL UNITS Performed this Session 2 TOTAL Number of ALL MINUTES with the Patient This Session 38 documented in this encounter Plan of Treatment [...] Primary documented in this encounter Care Teams Welding Machine Operator/Tender Relationship Specialty Start Date End Date Brent Crisostomo MD [address] [place] [address] PCP - General Internal Medicine 10/16/23 documented as of this encounter
--- OUTSIDE RECORDS SUMMARY | 2024-08-05 12:45 | XMS_ITS | Encounter Summary ---
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, subsequent encounter Medardo Lockhart MD [address] [place] [address] [address] [place] [address] [place] [address] [place] [address] [place] [address] Referral ID Status Reason Start Date Expiration Date V isits Requested Visits Authorized [id number] Closed Support Services 05/27/2024 05/28/2025 1 12 Encounter Details Date Type Department Care Team (Late st Contact Info) Description 07/30/2024 1:00 PM EST Treatment [facility] [address] [place] [address] Merly Cannon, PT [address] [place] [address] Chronic pain of right knee (Primary Dx) Social History Tobacco Use Types Packs/Day Years Used Date Smoking Tobacco: Never Assessed Sex and Gender Information Value Date Recorded Sex Assigned at Female 07/04/2023 5:58 AM EST Gender Identity Female 07/04/2023 5:58 AM EST Sexual Orientation Heterosexual (straight) 07/04 5:58 AM EST documented as of this encounter Discharge Summaries * Merly Cannon, PT - 07/30/2024 1:00 PM EST Images from the original note were not included. Treating Therapist: Merly Cannon PT Referring Provider: Medardo Lockahrt MD Physical Therapy Discharge Summary Diagnoses ICD-10-CM 1. Chronic pain of right knee M25.561 G89.29 Evaluation and Treatment History: Attended visits: 5 Discharge date: July 30, 2024 Discharge Details: Discharge - Patti July 30, 2024 Row Name Treatment from 07/30/2024 in [facility] Discharge Details Therapy interventions Cryotherapy;Gait training;Manual therapy;Neuro-muscular re-education;Therapeutic activities;Therapeutic Procedures;Thermotherapy Discharge Prognosis good (assuming compliance with therapy recommendations) Patient Education/ Training Provided home exercise program/ instructions;pain/ symptom management Reason(s) for Discharge goals met;reached maximum benefit Discharge Recommendations D/C with I with LE HEP. Objective Measurements: Pain - Patti July 30, 2024 Row Name Treatment from 07/30/2024 in [facility] Primary Pain Do you have pain? no Knee Musculoskeletal Exam Gait Gait is normal. Inspection Right Edema: mild Left Left knee inspection is normal. Palpation Right Crepitus: patellofemoral Tenderness: none Range of Motion Right Active extension: 0 Active flexion: 130 Left Left knee range of motion is normal and full. Strength Right Extension: 4+/5. Flexion: 4+/5. Left Left knee strength is normal. Strength additional comments: R hip strength throughout all planes 4+/5 MMT grade Assessment Details: Patient is a 84 yo female with chronic R knee pain and has met maximal functional benefit in skilled PT and has met all goals and to continue LE HEP. Assessment - Patti July 30, 2024 Row Name Treatment from 07/30/2024 in [facility] POC Details Therapy interventions Cryotherapy;Gait training;Manual therapy;Neuro-muscular re-education;Therapeutic activities;Therapeutic Procedures;Thermotherapy Daily Assessment and Plan - Patti July 30, 2024 Row Name Treatment from 07/30/2024 in [facility] Assessment/ Plan Assessment Patient has reached maximal functional potential in the right met all short-term and long-term goals to be discharged with independent lower extremity home exercise program. Plan Patient is discharged with independent lower extremity home exercise program. Goals: Goals Addressed This Visit's Progress COMPLETED: PT LTG 4 Patient will increase R knee flexion ROM to 120 to be able climb up and down 13 stairs with reciprocal pattern while using 1 handrail in 8 weeks. Patient will increase R knee extension ROM to 0 to be able to ambulate with non- abnormal gait and be able to ambulate community distances within 8 weeks. Patient will be able to walk for 30 minutes to be able to grocery shop and complete community shopping trips within 4 weeks. Patient will be report pain equal to or less than 2/10 which is limiting during sleeping and performing daily ADLS within 4 weeks. Patient will increase knee quad strength to 4+/5 to be able to perform sit to stand without using UE within 8 weeks. -all goals met as of 07/30/24 Patient will be independent with right lower extremity home exercise program within 4 weeks. Patient will decrease LEFS score by 20 points within 8 weeks documented in this encounter Miscellaneous Notes * Daily/Treatment Note - Merly Cannon, PT - 07/30/2024 1:00 PM EST Images from the original note were not included. Physical Therapy Daily Note Referring Provider: MEDARDO LOCKHART Diagnoses ICD-10-CM 1. Chronic pain of right knee M25.561 G89.29 Subjective: Daily Note Subjective - Patti July 30, 2024 Row Name Treatment [facility] 07/30/2024 in [facility] Subjective Subjective My R knee feels great. Treatment Performed: Interventions - Patti July 30, 2024 Row Name Treatment from 07/30/2024 in [facility] Neuro-muscular Re-education Justification to increase static and dynamic stability;to improve proprioception 11 soldier walks 2 sets/10 reps Therapeutic Procedures Justification to increase range of motion, strength and endurance 8 standing heel raises x 20 reps with unilateral UE support x 1 min each LE 12 Objective measures taken for discharge summary x 10 minutes 14 supine DKTC with green ball x 20 reps 16 SLR 2 sets/10 reps with strap 17 recumbent bike L1 x 5 min Patient education Access Code: [email or web address] URL: [email or web address] Date: 07/30/2024 Preparedby: Merly Cannon Exercises - Dynamic Straight Leg Kicks - 1 x daily - 7 x weekly - 3 sets - 10 reps - 3 hold - Side Stepping with Resistance at Ankles - 1 x daily - 7 x weekly - 3 sets - 10 reps - 3 hold - Single Leg Stance with Support - 2 x daily - 7 x weekly - 1 sets - 5 reps - 1 min hold - Heel Raises with Counter Support - 1 x daily - 7 x weekly - 2 sets - 10 reps - 3 hold - Active Straight Leg Raise with Quad Set - 1 x daily - 7 x weekly - 3 sets - 10 reps - 3 hold - Seated Long Arc Quad - 1 x daily - 7 x weekly - 3 sets - 10 reps - 3 hold Home Exercise Program updated Assessment/ Plan: Assessment - [facility] July 30, 2024 Row Name Treatment from 07/30/2024 in [facility] POC Details Therapy interventions Cryotherapy;Gait training;Manual therapy;Neuro-muscular re-education;Therapeutic activities;Therapeutic Procedures;Thermotherapy Daily Assessment and Plan - [facility] July 30, 2024 Row Name Treatment from 07/30/2024 in [facility] Assessment/ Plan Assessment Patient has reached maximal functional potential in the right met all short-term and long-term goals to be discharged with independent lower extremity home exercise program. Plan Patient is discharged with independent lower extremity home exercise program. Objective Measurements: Pain - [facility] July 30, 2024 Row Name Treatment from 07/30/2024 in [facility] Primary Pain Do you have pain? no Knee Musculoskeletal Exam Goals Addressed This Visit's Progress COMPLETED: PT LTG 4 Patient will increase R knee flexion ROM to 120 to be able climb up and down 13 stairs with reciprocal pattern while using 1 handrail in 8 weeks. Patient will increase R knee extension ROM to 0 to be able to ambulate with non- abnormal gait and be able to ambulate community distances within 8 weeks. Patient will be able to walk for 30 minutes to be able to grocery shop and complete community shopping trips within 4 weeks. Patient will be report pain equal to or less than 2/10 which is limiting during sleeping and performing daily ADLS within 4 weeks. Patient will increase knee quad strength to 4+/5 to be able to perform sit to stand without using UE within 8 weeks. -all goals met as of 07/30/24 Patient will be independent with right lower extremity home exercise program within 4 weeks. Patient will decrease LEFS score by 20 points within 8 weeks PT Charges - Patti July 30, 2024 Row Name [facility] 07/30/20[facility] Treatments-Timed Charges $ Neuromuscular Re-ed (units)- 84377 1 Neuromuscular Re-ed (minutes) 10 $ Therapeutic Procedures (units)- 52993 2 Therapeutic Procedure (minutes) 20 Therapy Totals TOTAL Number of TIMED UNITS 3 TOTAL Number of TIMED MINUTES 30 TOTAL Number of ALL UNITS Performed this Session 3 TOTAL Number of ALL MINUTES with the [...] Primary documented in this encounter Care Teams Resident Doctor Relationship Specialty Start Date End Date Brnet Crisostomo MD [address] [place] [address] PCP - General Internal Medicine 10/16/23 documented as of this encounter
--- OUTSIDE RECORDS SUMMARY | 2024-08-05 12:45 | XMS_ITS | Encounter Summary ---
Author Organization [facility] Address [address] [place] [address] Care Team Providers Care Supervisor Calibration Name Role Phone Thierry Leslie MD Primary Care Provider [phone] Thierry Leslie MD Unavailable [phone] Brent Crisostomo MD Primary Care Provider [phone] Encounter Details Date Type Department Care Team (Late st Contact Info) Description 09/03/2023 Scanned Document [facility] [address] [place] [address] Ruben Harrell MD [address] [place] [address] Social History Tobacco Use Types Packs/Day Years [...] on filedocumented in this encounter Care Teams Supervisor Calibration Relationship Specialty Start Date End Date Thierry Leslie MD [address] [place] [address] PCP - General Internal Medicine 07/07/20 10/15/23 Brent Crisostomo MD [address] [place] [address] PCP - General Internal Medicine 10/16/23 Thierry Leslie MD [address] [place] [address] Internal Medicine 07/07/20 10/15/23 documented as of this encounter
--- OUTSIDE RECORDS SUMMARY | 2024-08-05 12:45 | XMS_ITS | Patient Health Record ---
Author [facility] Address [address] [place] [address] Care Team Providers Care Supervisor Agricultural Education Name Role Phone Thierry Leslie MD Primary Care Provider Unavail able [address] Unavailable [phone] Allergies Allergen (clinical drug ingredient) Drug/Non Drug Allergy documented on EMR Reaction Allergy Type Onset Date Status EPINEPHrine Unknown Drug Allergy Activ e Reason For Referral No Information Medications Medication SIG (Take, Route, Frequency, Duration) Notes Start Date End Date Status Amoxicillin 500 MG TAKE 4 CAPSULES BY MOUTH 1 HOUR PRIOR TO DENTAL APPOINTMENT Oral for 3 Not-Taking Tylenol Active Meloxicam 15 MG TAKE 1 TABLET ONCE A DAY. Oral for 60 Not-Taking Lisinopril 5 MG 1 tablet Orally Once a day for 30 day(s) Active Lisinopril 10 MG 1 tablet Orally Once a day for 30 day(s) Active clonazePAM 1 MG (Schedule IV Drug) TAKE 2 TABLETS AT BEDTIME Oral for 90 Active EpiPen PRN Active hydroCHLOROthiazide Not-Taking Simvastatin 20 MG 1 tablet in the evening Orally Once a day 06/19/2016 Active Acetaminophen-Codeine #3 300-30 MG (Schedule III Drug) TAKE 1 TABLET BY MOUTH EVERY 6 HOURS NEEDED FOR 7 DAYS Oral for 7 Not-Taking Fluzone High-Dose 0.5 ML TO BE ADMINISTE RED BY PHARMACIST FOR IMMUNIZATION Intramuscular for 1 Not-Taking Keflex 500 MG 1 capsule Orally every 12 hrs for 5 days Not-Taking Xylocaine Active Social History Tobacco Use: Social History Observation Description Date Details (start date - stop date) Former Smoker NA - NA Tobacco Use/Smoking Question Answer Notes Are you a: former smoker When did you stop smoking? 50 yrs ago Additional Findings: Tobacco Non-User Current no n-smoker Alcohol Screen Question Answer Notes Did you have a drink contain ing alcohol in the past year? Yes How often did you have a dri nk containing alcohol in the past year? Monthly or less (1 point) Points 1 Interpretation Negative Tobacco use other than smoking: Question Answer Notes Are you an other tobacco user? No Problems Problem Type SNOMED Code ICD Code Onset Dates Problem Status W/U Status Risk Notes Problem Acquired hammer toe of left foot (3782575153148 103) Other hammer toe(s) (acquired), left foot (M20.42) Active confirmed Plan Of Treatment Pending Test Test Name Order Date [id number] Plate 06/19/2016 [id number] Plate 05/03/2017 98894- Debride <25 sq cm 07/10/2016 15265- Nail Unit Biopsy 02/27/2018 Insurance Providers Payer Name Payer Address Payer Phone Subscriber Number Group Number Insured Name Patient Relationship to Insured Coverage Start Date Coverage End Date Medicare [facility] [address] [place] [address] [id number] Brooklynn Novak Self - patient is the insured A[employer] Secondary to Medicare [address] [place] [address] [id number] Brooklynn Novak Self - patient is the insured 6 Medical (General) History Medical History History ICD Code Back,Hip,and Knee pain Cholesterol Hypertension Rheumatic fever Scarlet fever Measles Mumps Chicken pox Joint implants/screws Surgical History Surgery Date(Month/Year) right knee arthroscopy 03/31 right partial knee replacement 12/12/15 Total Knee right revision 12/2016 cataract surgery 01/19/21 Hospitalization History Reason Date(Month/Year) [facility] for total k nee replacement 12/2016 Bharati question on cardiac issues 09/2018
--- OUTSIDE RECORDS SUMMARY | 2024-08-05 12:45 | XMS_ITS | Encounter Summary ---
Author Organization [facility] Address [address] [place] [address] Care Team Providers Care Labeler Name Role Phone Thierry Leslie MD Primary Care Provider [phone] Thierry Leslie MD Unavailable [phone] Brent Crisostomo MD Primary Care Provider [phone] Encounter Details Date Type Department Care Team (Late st Contact Info) Description 09/03/2023 Scanned Document [facility] [address] [place] [address] Ruben Harrell MD [address] [place] [address] Social History Tobacco Use Types Packs/Day Years [...] on filedocumented in this encounter Care Teams Labeler Relationship Specialty Start Date End Date Thierry Leslie MD [address] [place] [address] PCP - General Internal Medicine 07/07/20 10/15/23 Brent Crisostomo MD [address] [place] [address] PCP - General Internal Medicine 10/16/23 Thierry Leslie MD [address] [place] [address] Internal Medicine 07/07/20 10/15/23 documented as of this encounter
--- OUTSIDE RECORDS SUMMARY | 2024-08-05 12:45 | XMS_ITS | Clinical Summary ---
Author Organization [facility] Address [address] [place] [address] Care Team Providers Care Adjunct Philosophy Faculty Name Role Phone Brent Crisostomo MD Primary Care Provider [phone] Medications No known medications Active Problems No known active problems Encounters Date Type Department Care Team Description 07/30/2024 1:00 PM [place] [address] Merly Cannon, PT Chronic pain of right knee (Primary Dx) 07/27/2024 1:00 PM EST Treatment [facility] [address] [address] Merly Cannon, PT Chronic pain of right knee (Primary Dx) 07/16/2024 1:00 [place] [address] Merly Cannon, PT Chronic pain of right knee (Primary Dx) 07/14/2024 1:45 PM [place] [address] Clarence Lockhart MD 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, subsequent encounter (Primary Dx); Iliotibial band syndrome of right side 06/24/2024 2:00 PM EST Treatment [facility] [place] [id number] Merly Cannon, PT Chronic pain of right knee (Primary Dx) 06/15/2024 12:30 PM EST Treatment [facility] [address] [address] Merly Cannon, PT Chronic pain of right knee (Primary Dx) 06/05/2024 1:30 PM EST Evaluation [facility] [address] [address] Merly Cannon, PT Chronic pain of right knee (Primary Dx) 05/27/2024 Orders Only [facility] [address] [address] Clarence Lockhart MD 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, subsequent encounter (Primary Dx) from Last 3 Months Social History Tobacco Use Types Packs/Day Years Used Date Smoking Tobacco: Never Assessed Sex and Gender Information Value Date Recorded Sex Assigned at Female 07/04/2023 5:58 AM EST Gender Identity Female 07/04/2023 5:58 AM EST Sexual Orientation Heterosexual (straight) 07/04 5:58 AM EST Plan of Treatment Health Maintenance Due Date Last Done Comments DTaP/Tdap/Td Vaccines (1 - Tdap) 1958 Pneumococcal Vaccines 50+ (1 of 1 - PCV) 1989 Zoster (Shingles) Vaccine (1 of 2) 1989 DXA Bone Density (Females,Ages 65 and older) 02/26/2004 RSV Vaccine 60 years and older and Patients (1 - 1-dose 75+ series) 2014 COVID-19 Vaccine ( season) 2024 04/20/2022, 12/10/2021, 03/21/2021, Additional history exists Influenza Vaccine Completed 03/05/2024, , 03/03/2022, Additional history exists Hepatitis B Vaccines Aged Out No long er eligible based on patient's age to complete this topic Goals Goal Patient Goal Type Associated Problems [...] score by 20 points within 8 weeks. Care Teams Adjunct Philosophy Faculty Relationship Specialty Start Date End Date Brent Crisostomo MD [address] [place] [address] [address] [place] [address] PCP - General Internal Medicine 10/16/23
--- OUTSIDE RECORDS SUMMARY | 2024-08-05 12:45 | XMS_ITS | Encounter Summary ---
Author Organization [facility] Address [address] [place] [address] Care Team Providers Care Pattern Chart Writer Name Role Phone Thierry Leslie MD Primary Care Provider [phone] Thierry Leslie MD Unavailable [phone] Brent Crisostomo MD Primary Care Provider [phone] Encounter Details Date Type Department Care Team (Late st Contact Info) Description 08/20/2023 Scanned Document [facility] [address] [place] [address] Ruben Harrell MD [address] [place] [address] Social History Tobacco Use Types Packs/Day Years [...] on filedocumented in this encounter Care Teams Pattern Chart Writer Relationship Specialty Start Date End Date Thierry Leslie MD [address] [place] [address] PCP - General Internal Medicine 07/07/20 10/15/23 Brent Crisostomo MD [address] [place] [address] PCP - General Internal Medicine 10/16/23 Thierry Leslie MD [address] [place] [address] Internal Medicine 07/07/20 10/15/23 documented as of this encounter
--- NOTE | 2024-08-06 09:40 | MHC.AU.HA3 ---
Hearing Instrument Follow-Up- Binaural Date of Visit: 08/05/24 Right Ear: Make, Model, Color, Serial Number: Lev Rutherford AI [id number] MYNOR-R SN: [id number] Color: Bronze Brush Loader And Handle Attacher Repair Warranty: 11/20/2024 Brush Loader And Handle Attacher Loss and Damage Warranty: 11/20/2024 [facility] Service Plan: 08/29/2024 Battery Size: Rechargeable Radio Officer/Slim Tube: #2 50 gain Earmold/Dome/CShell/SlimTip:Lev canal lock 60 Shore SN: [id number] Mame: 08/06/2024 Type of Wax Guard: HearClear Dispensed By: [facility] Date of Fittin08/29/2021 Left Ear: Make, Model, Color, Serial Number: Lev Rutherford AI 2400 MYNOR-R SN: [id number] Color: Bronze Brush Loader And Handle Attacher Repair Warranty: 11/20/2024 Brush Loader And Handle Attacher Loss and Damage Warranty: 11/20/2024 [facility] Service Plan: 08/29/2024 Battery Size: Rechargeable Radio Officer/Slim Tube: #2 50 gain Earmold/Dome/CShell/SlimTip: Lev canal lock 60 [facility] SN: [id number] Mame: 08/06/2024 Type of Wax Guard: HearClear Dispensed By: [facility] Date of Fittin08/29/2021 Follow-Up Summary: Right EM ripped down canal. Attempted to re-glue without success. Still under warranty until tomorrow, 08/06/2024. Called Lev - Per customer service driverNate, need to send EM in to be repaired/remade. Will be covered under warranty, no charge, even if it arrives after warranty date. Using small vented dome on right JUNIOR in meantime. Sent right EM to Lev. Recommendations: Patient will be contacted when materials have arrived. Diagnosis Code(s): Primary Diagnosis: H90.3 Bilateral Sensorineural Hearing Loss Signature: Provider: Brittni Tyson, CCC-A
== END 2024-08-05 12:23 | disposition home or self-care (01) ==
LOC: HO.HAP 12:22
PROVIDERS: Visit Provider Internal Medicine
DX: Z13.89 Encounter for screening for other disorder (principal)

== ENCOUNTER 2024-09-01 11:58 | Outpatient (REF) | payer SELFPAY | END 2024-09-01 11:59 | disposition home or self-care (01) | LOC: HO.HAP 11:58 | PROVIDERS: Visit Provider Internal Medicine | DX: Z13.89 Encounter for screening for other disorder (principal) ==

== ENCOUNTER 2024-10-21 13:19 | Outpatient (REF) | payer SELFPAY ==
--- OUTSIDE RECORDS SUMMARY | 2024-10-21 14:35 | XMS_ITS | Clinical Summary ---
Author Organization [facility] Address [address] [place] [address] Care Team Providers Care Radiation Control Specialist Name Role Phone Brent Crisostomo MD Primary Care Provider [phone] Allergies Active Allergy Reactions Criticality Noted Date [...] normal strain, normal studyu 30 day loop Lipids--[id number], HDL57, TG151, URB859 Complex regional pain syndrome of lower limb [...] age to complete this topic Care Teams Radiation Control Specialist Relationship Specialty Start Date End Date Brent Crisostomo MD [address] [address] PCP - General Peanut Roaster 05/04/22
--- OUTSIDE RECORDS SUMMARY | 2024-10-21 14:35 | XMS_ITS | Data Portability ---
Author Organization [facility] Address [address] [facility],[address] [place] [address] Care Team Providers Care Milk Collector Name Role Phone SID RAMOS Primary Care [...] booked for the same. She needs a route salesman and driver on the day of the procedure. [...] booked for the same. She needs a route salesman and driver on the day of the procedure. [email or web address] Not available 05/24/2022 15:27:51 Plan of Treatment Reminders Order Date Submit Date Provider Last Modified By Organization Details Last Modified Time Details Appointments None recorded. Lab None recorded. Referral None recorded. Procedures None recorded. Surgeries None recorded. Imaging None recorded. Medication Orders ZTlido 1.8 % topical patch 2021 022 PROTECTION [id number], [address], [place], [id number], 14:52:27 ZTlido 1.8 % topical patch 2019 020 INTERFACE [id number], [address], [place], [place], [id number], 0 15:43:11 Patient TargetsNo targets recorded. Patient Instructions Encounter Date Encounter Id Patient Instructions Last Modified By Organization Details Last Modified Time 03/22/2020 [id number] She was advised against bed rest lasting longer than four days and to continue activities as tolerated. [email or web address] Not available 03/22/2020 15:41:04 06/29/2020 [id number] She was advised against bed rest lasting longer than four days and to continue activities as tolerated. [email or web address] Not available 06/29/2020 14:02:11 12/07/2020 [id number] She was advised against bed rest lasting longer than four days and to continue activities as tolerated. [email or web address] Not available 12/08/2020 11:09:19 02/26/2022 [id number] She was advised against bed rest lasting longer than four days and to continue activities as tolerated. [email or web address] Not available 02/27/2022 08:51:33 05/24/2022 [id number] She was advised against bed rest lasting longer than four days and to continue activities as tolerated. [email or web address] Not available 05/24/2022 15:27:51 Reason for Referral None Reported. Problems Name Problem SNOMED Code Status Onset Date Resolution Date Notes Provider Name and Address Organization Details Recorded Time Right saphenous neuritis 759382359772 108 Active Meme gant MD [address] , [address], [place], [address], [place] [facility] 15:07:29 Arthritis of right knee 206502821531 9102 Active Meme gant MD [address] , [address], [place], [address], [place] [facility] 9 15:07:43 Complex regional pain syndrome, type II, lower limb 771740096 Completed 10/16/2018 Meme gant MD [address] , [address], [place], [address], [place] [facility] 9 14:51:48 Complex regional pain syndrome type I 739489280 Active Meme gant MD [address] , [address], [place], [address], [place] [facility] 9 14:52:12 Complex regional pain syndrome of lower limb 084230514 Active 2018 Meme gant MD [address] , [address], [place], [address], [place] [facility] 9 14:54:07 Cervical radiculop athy 89874253 Active Meme gant MD [address] , [address], [place], [address], [place] [facility] 9 10:12:07 Lumbar radiculop athy 225440091 Active Meme gant MD [address] , [address], [place], [address], [place] [facility] 0 15:48:26 Degenerat ion of lumbar intervert ebral disc 84864142 Active Meme gant MD [address] , [address], [place], [address], [place] [facility] 0 15:48:40 Problem Notes None recorded. Procedures Surgical History Date Name Laterality Status Provider Name and Address Organization Details Recorded Time 12/08/19 21 Sapheneous Nerve block under ultrasound guidance completed Meme Ackerman MD [address] , [address], [place], [address], [place] [facility] 12/08/2020 11:09:29 06/29/19 21 Lumbar Epidural steroid injection under fluoroscopic guidance completed Meme Ackerman MD [address] , [address], [place], [address], [place] [facility] 06/29/2020 14:02:58 03/22/20 20 Lumbar Epidural steroid injection under fluoroscopic guidance completed Meme Ackerman MD [address] , [address], [place], [address], [place] [facility] 03/22/2020 15:41:15 12/08/19 20 Lumbar Epidural steroid injection under fluoroscopic guidance completed Meme Ackerman MD [address] [facility] , [address], [place], [address], [place] [facility] 12/08/2019 16:15:24 07/14/19 20 Lumbar Epidural steroid injection under fluoroscopic guidance completed Meme Ackerman MD [address] [facility] , [address], [place], [address], [place] [facility] 07/14/2019 16:27:03 01/20/20 19 Sapheneous Nerve block under ultrasound guidance completed Meme Ackerman MD [address] [facility] , [address], [place], [address], [place] [facility] 01/19/2019 14:14:27 11/07/19 19 Sapheneous Nerve block under ultrasound guidance completed Meme Ackerman MD [address] [facility] , [address], [place], [address], [place] [facility] 11/07/2018 09:07:54 10/17/19 19 Sapheneous Nerve block under ultrasound guidance completed Meme Ackerman MD [address] [facility] , [address], [place], [address], [place] [facility] 10/16/2018 14:25:02 09/26/19 19 Sapheneous Nerve block under ultrasound guidance completed Meme Ackerman MD [address] [facility] , [address], [place], [address], [place] [facility] 09/25/2018 [...] Name and Address Organization Details Recorded Time 71255 acetamino phen / oxycodone medicatio n Not available Not available Not available 01/19/2019 04011 3 RxNorm Palpi ation s Meme gant MD [address] [place] [address] , [address], [place], [address], [place] [facility] 0 [...] % 163 mm[Hg] 62 mm[Hg] Nelida Mims [facility] 0 13:59:31 Date Recorded Body height Heart rate Oxygen saturation Oxygen saturation in Arterial blood by Pulse oximetry Pain severity - 0-10 verbal numeric rating [Score] - Reported Systolic blood pressure Diastolic blood pressure Provider Name and Address Organization Details Last Updated DateTime 1 162.56 cm 84 /min 96 % 96 % 1 171 mm[Hg] 77 mm[Hg] Pedro gant [facility] 1 11:29:06 Date Recorded Body height Heart rate Oxygen saturation Oxygen saturation in Arterial blood by Pulse oximetry Pain severity - 0-10 verbal numeric rating [Score] - Reported Systolic blood pressure Diastolic blood pressure Provider Name and Address Organization Details Last Updated DateTime 1 162.56 cm 66 /min 99 % 99 % 6 141 mm[Hg] 63 mm[Hg] Meme gant MD [address] [facility] , [address], [facility]3][place], [address], [place] - [facility] 1 15:08:45 Date Recorded Body height Provider Name an d Address Organization Details Last Updated DateTime 12/13/2020 162.56 cm Nelida Mims [place] [facility] 12/13/2020 14:06:30 Date Recorded Heart rate Oxygen saturation Oxygen saturation in Arterial blood by Pulse oximetry Pain severity - 0-10 verbal numeric rating [Score] - Reported Systolic blood pressure Diastolic blood pressure Provider Name and Address Organization Details Last Updated DateTime 2 74 /min 98 % 98 % 8 176 mm[Hg] 81 mm[Hg] Prakashstalin gant [place] [facility] 2 15:24:11 Date Recorded Heart rate Oxygen saturation Oxygen saturation in Arterial blood by Pulse oximetry Systolic blood pressure Diastolic blood pressure Provider Name and Address Organization Details Last Updated DateTime 2 71 /min 97 % 97 % 167 mm[Hg] 74 mm[Hg] Nelida Mims [place] [facility] 2 14:34:35 Social History Question Answer Notes LastModified by Organizat ion Details LastModified Time Tobacco Smoking Status Former Smoker Quit x 45 years Viridiana uriostegui, [place] [facility] 08/25/2018 14:25:11 What Is [...] Organization Details LastModified Time Mother Diabetes mellitus [email or web address] Not available 2018 14:24:46 Medical History Condition Response Arthritis Y Irritable Bowel Syndrome Y Hypertension Y High Cholesterol Y Gynecological HistoryNo gynecological history recorded. Obstetrics History GPAL:G 0 P 0 0 0 0 Past Encounters Encounter ID Performer Location Encounter Start Date Encounter Closed Date Diagnosis/Indication Diagnosis SNOMED-CT Code Diagnosis ICD10 Code Diagnosis Note [id number] Meme Ackerman MD [facility] [address] [facility] [place] [place] [address] 08/25/2018 13:49:45 08/29/2018 11:10:41 Arthritis of right knee 7931406145 049806 M13.861 Neuritis o f saphenous nerve 124131310 G57.81 [id number] Meme Ackerman MD [facility] [address] [facility] [place] [address] 09/22/2018 13:03:21 09/24/2018 15:15:32 Arthritis of right knee 6277444832 043456 M13.861 Neuritis o f saphenous nerve 402727407 G57.81 [id number] Mmee Ackerman MD [facility] [address] [facility] [place] [address] 09/25/2018 14:53:31 09/25/2018 15:58:43 Arthritis of right knee 1054377077 614701 M13.861 Neuritis o f saphenous nerve 709282885 G57.81 [id number] Meme Ackerman MD [facility] [address] [facility] [place] [address] 10/16/2018 13:34:02 10/16/2018 14:27:02 Arthritis of right knee 9837673307 817064 M13.861 Neuritis o f saphenous nerve 591873197 G57.81 Complex re gional pain syndrome of lower limb 513547969 G90.521 [id number] Meme Ackerman MD [facility] [address] [facility] [place] [address] 11/06/2018 13:02:39 11/07/2018 10:17:20 Arthritis of right knee 0330191757 309066 M13.861 Neuritis o f saphenous nerve 064776045 G57.81 Complex re gional pain syndrome of lower limb 031006392 G90.521 Cervical radiculopathy 64052245 M54.12 [id number] Meme Ackerman MD [facility] [address] [place] [address] 12/22/2018 14:01:20 12/23/2018 11:02:50 Arthritis of right knee 6134156339 697467 M13.861 Neuritis o f saphenous nerve 537265836 G57.81 Complex re gional pain syndrome of lower limb 416535986 G90.521 Cervical radiculopathy 17957121 M54.12 [id number] Meme Ackerman MD [facility] [address] [place] [address] 01/19/2019 13:07:32 01/19/2019 14:16:46 Arthritis of right knee 9634973357 248487 M13.861 Neuritis o f saphenous nerve 875768940 G57.81 Complex re gional pain syndrome of lower limb 465562821 G90.521 Cervical radiculopathy 89461280 M54.12 Pain of ri ght hip joint 3028582969 06188 M25.551 [id number] Meme Ackerman MD [facility] [address] [place] [address] 02/26/2019 15:30:27 03/06/2019 10:57:15 Arthritis of right knee 5212002225 433639 M13.861 Neuritis o f saphenous nerve 415006738 G57.81 Complex re gional pain syndrome of lower limb 690282132 G90.521 Cervical radiculopathy 98405526 M54.12 Pain of ri ght hip joint 3279947569 51908 M25.551 [id number] Meme Ackerman MD [facility] [address] [place] [address] 07/13/2019 15:31:34 07/13/2019 16:55:10 Lumbar radiculopathy 306046489 M54.16 Degenerati on of lumbar intervertebral disc 15143587 M51.36 [id number] Meme Ackerman MD [facility] [address] [place] [address] 07/14/2019 14:40:04 07/14/2019 16:30:24 Lumbar radiculopathy 361308905 M54.16 Degenerati on of lumbar intervertebral disc 56150597 M51.36 [id number] Meme Ackerman MD [facility] [address] [place] [address] 11/12/2019 14:28:36 11/12/2019 15:34:56 Lumbar radiculopathy 655636867 M54.16 Degenerati on of lumbar intervertebral disc 18088766 M51.36 [id number] Meme Ackerman MD [facility] [address] [place] [address] 12/08/2019 13:03:19 12/08/2019 16:17:32 Lumbar radiculopathy 973821930 M54.16 Degenerati on of lumbar intervertebral disc 34136446 M51.36 Arthritis of right knee 7102958102 831963 M13.861 [id number] Meme Ackerman MD PAIN OFFICE [address] [place] [address] 01/18/2020 10:00:28 01/18/2020 10:05:33 Lumbar radiculopathy 441045808 M54.16 Degenerati on of lumbar intervertebral disc 71925673 M51.36 Arthritis of right knee 7110712513 812916 M13.861 [id number] Meme Ackerman MD [facility] [address] [facility] [place] [address] 02/26/2020 09:33:19 03/23/2020 11:08:03 Lumbar radiculopathy 317484858 M54.16 Degenerati on of lumbar intervertebral disc 47848559 M51.36 [id number] Meme Ackerman MD [facility] [address] [place] [address] 03/22/2020 13:53:02 03/22/2020 15:59:46 Lumbar radiculopathy 962751183 M54.16 Degenerati on of lumbar intervertebral disc 24770866 M51.36 Arthritis of right knee 9513066676 933697 M13.861 [id number] Meme Ackerman MD [facility] [address] [place] [address] 06/29/2020 11:22:43 06/29/2020 14:05:21 Lumbar radiculopathy 834619213 M54.16 Degenerati on of lumbar intervertebral disc 08549240 M51.36 Arthritis of right knee 6788254051 886442 M13.861 [id number] Meme Ackerman MD [facility] [address] [facility] [place] [address] 12/07/2020 15:05:22 12/08/2020 11:11:51 Arthritis of right knee 5346613387 749617 M13.861 Neuritis o f saphenous nerve 869041312 G57.81 Complex re gional pain syndrome of lower limb 777341029 G90.521 Cervical radiculopathy 21137508 M54.12 Pain of ri ght hip joint 5154313332 09553 M25.551 [id number] Meme Ackerman MD PAIN OFFICE [address] [facility] [place] [address] 02/26/2022 15:15:06 02/27/2022 08:52:19 Lumbar radiculopathy 699597866 M54.16 Degenerati on of lumbar intervertebral disc 12935621 M51.36 [id number] Meme Ackerman MD PAIN OFFICE [address] [facility] [place] [address] 05/24/2022 14:25:07 05/24/2022 15:28:56 Arthritis of right knee 1974925189 322804 M13.861 Lumbosacra l radiculopathy 7363157 M54.17 Lumbar radiculopathy 128 093272 M54.16 Degenerati on of lumbar intervertebral disc 20417477 M51.36 Health Concerns Section Related Observation LastModified by Organization Detai ls LastModified Time None Recorded Concern Status LastModified by Organization Details LastModified Time None Recorded Advance Directives Directive None Recorded Payers Encounter Date Sequence Insurance Name Policy Number Policy Galicia Covered Member ID Galicia Member ID Guarantor Name 03/22/2020 1 [place] [employer] Brooklynn Novak [id number] Brooklynn Asinas 03/22/2020 2 [employer] OPTIONS (MEDICARE SUPPLEMENT) Brooklynn Asinas [id number] Brooklynn Asinas 06/29/2020 1 [place] [employer] Brooklynn L Asinas [id number] Brooklynn Asinas 06/29/2020 2 [employer] OPTIONS (MEDICARE SUPPLEMENT) Brooklynn Asinas [id number] Brooklynn Asinas 12/07/2020 1 [place] [employer] Brooklynn L Asinas [id number] Brooklynn Asinas 12/07/2020 2 [employer] OPTIONS (MEDICARE SUPPLEMENT) Brooklynn Asinas [id number] Brooklynn Asinas 02/26/2022 1 [place] Brooklynn L Asinas [id number] Brooklynn Asinas 02/26/2022 2 [employer] HE[employer] OPTIONS (MEDICARE SUPPLEMENT) Brooklynn Asinas [id number] Brooklynn Asinas 05/24/2022 1 [place] [employer]MENT [employer] Brooklynn L Asinas [id number] Brooklynn Asinas 05/24/2022 2 [employer] HE[employer] OPTIONS (MEDICARE SUPPLEMENT) Brooklynn Asinas [id number] Brooklynn Asinas Notes Date Note Type Note Provider Name and Address Organization Details Recorded Time 03/22/2020 text/html She is here for a lumbar epidural steroid injection under fluoroscopic guidance. Meme Ackerman MD [address] [facility] [address], [place], [address], [place] [facility] 03/22/2020 16:17:10 06/29/2020 text/html She is here for a lumbar epidural steroid injection under fluoroscopic guidance. Meme Ackerman MD [address] , [address], [place], [address], [place] [facility] 06/29/2020 15:50:36 12/07/2020 text/html She is here for a repeat saphenous nerve block under ultrasound guidance. She reports some pain benefit after last injection. Meme Ackerman MD [address] , [address], [place], [address], [place] [facility] 12/12/2020 10:52:25 02/26/2022 text/html She [...] note as she has a case in [place] for which she need to appear in court and is unable to travel due to various reasons. Meme Ackerman MD [address] [facility] , [facility] [address], [place], [address], [facility] 02/27/2022 16:08:59 05/24/2022 text/html She [...] or bowel incontinence Meme Ackerman MD [address] [facility] [address], [place], [address], [facility] 05/24/2022 15:39:41 OBGyn Episode No OBEpisode recorded.
--- OUTSIDE RECORDS SUMMARY | 2024-10-21 14:35 | XMS_ITS | Clinical Summary ---
Author Organization [facility] Address [address] [place] [address] Care Team Providers Care Carbon Furnace Operator Helper Name Role Phone Brent Crisostomo MD Primary Care Provider [phone] Medications No known medications Active Problems No known active problems Encounters Date Type Department Care Team Description 07/30/2024 1:00 PM EST Treatment Orthopedic [address] [address] Merly Cannon, PT Chronic pain of right knee (Primary Dx) 07/27/2024 1:00 PM EST Treatment Orthopedic [address] [address] Merly Cannon, PT Chronic pain of right knee (Primary Dx) from Last 3 Months Social History Tobacco Use Types Packs/Day Years Used Date Smoking Tobacco: Never Assessed Comments Unknown Sex and Gender Information Value Date Recorded Sex Assigned at Female 07/04/2023 5:58 AM EST Legal Sex Female 8:42 AM EDT Gender Identity Female 07/04/2023 5:58 AM EST [...] 12/10/2021, 03/21/2021, Additional history exists Influenza Vaccine 01/15/2025 03/05/2024, , 03/03/2022, Additional history exists Hepatitis [...] score by 20 points within 8 weeks. Insurance MEDICARE PART A & B [facility] MEDICARE PART A & B [facility] Care Teams Carbon Furnace Operator Helper Relationship Specialty Start Date End Date Brent Crisostomo MD [address] [place] [address] PCP - General Internal Medicine 10/16/23
--- OUTSIDE RECORDS SUMMARY | 2024-10-21 14:35 | XMS_ITS | Encounter Summary ---
Author Organization [facility] Address [address] [place] [address] Care Team Providers Care Rail Car Welder Name Role Phone Thierry Leslie MD Primary Care Provider [phone] Thierry Leslie MD Unavailable [phone] Brent Crisostomo MD Primary Care Provider [phone] Encounter Details Date Type Department Care Team (Late st Contact Info) Description 08/20/2023 Scanned Document [facility] [address] [place] [address] Ruben Harrell MD [address] [place] [address] Social History Tobacco Use Types Packs/Day Years [...] on filedocumented in this encounter Care Teams Rail Car Welder Relationship Specialty Start Date End Date Thierry Leslie MD [address] [place] [address] PCP - General Internal Medicine 07/07/20 10/15/23 Brent Crisostomo MD [address] [facility] [address] [place] [address] PCP - General Internal Medicine 10/16/23 Thierry Leslie MD [address] [place] [address] Internal Medicine 07/07/20 10/15/23 documented as of this encounter
--- OUTSIDE RECORDS SUMMARY | 2024-10-21 14:35 | XMS_ITS | Encounter Summary ---
Author Organization [facility] Address [address] [place] [address] Care Team Providers Care Cone Sewer Name Role Phone Thierry Leslie MD Primary Care Provider [phone] Thierry Leslie MD Unavailable [phone] Brent Crisostomo MD Primary Care Provider [phone] Encounter Details Date Type Department Care Team (Late st Contact Info) Description 09/03/2023 Scanned Document [facility] [address] [place] [address] Ruben Harrell MD [address] [place] [address] Social History Tobacco Use Types Packs/Day Years [...] on filedocumented in this encounter Care Teams Cone Sewer Relationship Specialty Start Date End Date Thierry Leslie MD [address] [place] [address] PCP - General Internal Medicine 07/07/20 10/15/23 Brent Crisostomo MD [address] [facility] [address] [place] [address] PCP - General Internal Medicine 10/16/23 Thierry Leslie MD [address] [place] [address] Internal Medicine 07/07/20 10/15/23 documented as of this encounter
--- OUTSIDE RECORDS SUMMARY | 2024-10-21 14:35 | XMS_ITS | Encounter Summary ---
Author Organization Formerly [facility] Address [address] [place] [address] Care Team Providers Care Supervisor Telephone Information Name Role Phone Thierry Leslie MD Primary Care Provider [phone] Thierry Leslie MD Unavailable [phone] Brent Crisostomo MD Primary Care Provider [phone] Encounter Details Date Type Department Care Team (Late st Contact Info) Description 09/03/2023 Scanned Document [facility] [address] [place] [address] Ruben Harrell MD [address] [place] [address] Social History Tobacco Use Types Packs/Day Years [...] filedocumented in this encounter Care Teams Supervisor Telephone Information Relationship Specialty Start Date End Date Thierry Leslie MD [address] [place] [address] PCP - General Internal Medicine 07/07/20 10/15/23 Brent Crisostomo MD [address] [facility] [address] [place] [address] PCP - General Internal Medicine 10/16/23 Thierry Leslie MD [address] [place] [address] Internal Medicine 07/07/20 10/15/23 documented as of this encounter
--- OUTSIDE RECORDS SUMMARY | 2024-10-21 14:35 | XMS_ITS | Patient Health Record ---
[facility] Address [address] [facility] [place] [address] Care Team Providers Care Precision Optics Technician Name Role Phone Theirry Leslie MD Primary Care Provider Unavail able [address] Unavailable [phone] Allergies Allergen (clinical drug ingredient) Drug/Non Drug [...] Problem Acquired hammer toe of left foot (5904521208475 103) Other hammer toe(s) (acquired), left foot (M20.42) Active confirmed Plan Of Treatment Pending Test Test Name Order Date 56967-Jgpwnqwz Plate 06/19/2016 14878-Rpccsfcs Plate 05/03/2017 98025- Debride <25 sq cm 07/10/2016 06180- Nail Unit Biopsy 02/27/2018 Insurance Providers Payer Name Payer Address Payer Phone Subscriber Number Group Number Insured Name Patient Relationship to Insured Coverage Start Date Coverage End Date Medicare [facility] [address] [facility] [place] [address] [id number] Brooklynn Novak Self - patient is the insured AARP Secondary to Medicare [address] [place] [address] [id number] Brooklynn Novak Self - patient is the insured 6 Medical (General) History Medical History History ICD Code Back,Hip,and Knee pain Cholesterol Hypertension Rheumatic fever Scarlet fever Measles Mumps Chicken pox Joint implants/screws Surgical History Surgery Date(Month/Year) right knee arthroscopy 03/31 right partial knee replacement 12/12/15 Total Knee right revision 12/2016 cataract surgery 01/19/21 Hospitalization History Reason Date(Month/Year) [facility] for total k nee replacement 12/2016 Bharati question on cardiac issues 09/2018
--- OUTSIDE RECORDS SUMMARY | 2024-10-21 14:35 | XMS_ITS | Encounter Summary ---
Author Organization [facility] Address [address] [place] [address] Care Team Providers Care Eco Industrial Development Consultant Name Role Phone Thierry Leslie MD Primary Care Provider [phone] Thierry Leslie MD Unavailable [phone] Brent Crisostomo MD Primary Care Provider [phone] Encounter Details Date Type Department Care Team (Late st Contact Info) Description 08/20/2023 Scanned Document [facility] [address] [place] [address] Ruben Harrell MD [address] [place] [address] Social History Tobacco Use Types Packs/Day Years [...] on filedocumented in this encounter Care Teams Eco Industrial Development Consultant Relationship Specialty Start Date End Date Thierry Leslie MD [address] [place] [address] PCP - General Internal Medicine 07/07/20 10/15/23 Brent Crisostomo MD 701 [facility] [address] [place] [address] PCP - General Internal Medicine 10/16/23 Thierry Leslie MD [address] [place] [address] Internal Medicine 07/07/20 10/15/23 documented as of this encounter
--- OUTSIDE RECORDS SUMMARY | 2024-10-21 14:35 | XMS_ITS | Encounter Summary ---
Author Organization [facility] Address [address] [place] [address] Care Team Providers Care Cemetery Keeper Name Role Phone Thierry Leslie MD Primary Care Provider [phone] Thierry Leslie MD Unavailable [phone] Brent Crisostomo MD Primary Care Provider [phone] Encounter Details Date Type Department Care Team (Late st Contact Info) Description 09/03/2023 Scanned Document [facility] [address] [place] [address] Ruben Harrell MD [address] [place] [address] Social History Tobacco Use Types Packs/Day Years [...] on filedocumented in this encounter Care Teams Cemetery Keeper Relationship Specialty Start Date End Date Thierry Leslie MD [address] [place] [address] PCP - General Internal Medicine 07/07/20 10/15/23 Brent Crisostomo MD 701 [facility] [address] [place] [address] PCP - General Internal Medicine 10/16/23 Thierry Leslie MD [address] [place] [address] Internal Medicine 07/07/20 10/15/23 documented as of this encounter
--- OUTSIDE RECORDS SUMMARY | 2024-10-21 14:35 | XMS_ITS | Data Portability ---
Author Organization [place] [facility] Address [address] [place] [address] Care Team Providers Care Hot Molder Name Role Phone SID RAMOS Primary Care Provider [phone] Assessment Encounter Date Assessment Date Assessment LastModified [...] complications. All questions answered to their satisfaction. [place] [id number] Not available 12/05/2022 14:53:46 Plan of Treatment [...] unilateral, 2 or 3 view 2022 023 [place] [address] [facility], [address], [place], [address], 3 21:24:01 XR, knee, 3 view 2022 023 [email or web address] [facility], [address], [facility] [address], [place], [address], 3 16:31:36 NM, bone scan, 3-phase - painful right total knee replacment. loosening suspected 2022 023 MIKE Not available 3 09:13:16 Medication Orders None recorded. Patient TargetsNo targets recorded. Patient Instructions Encounter Date Encounter Id Patient Instructions Last Modified By Organization Details Last Modified Time 10/23/2022 [id number] AP, lateral, and patellar radiographs of the right knee taken today demonstrate a right total knee replacement. There are lucent lines around the tibial component. These are circumferential. There is no signs of gross loosening. There is no signs of progression compared to x-rays from August. No signs of other hardware related complications. [email or web address] Not available 10/23/2022 15:16:10 12/05/2022 [id number] 2 views of the {{Right Left*}} hip were obtained in the {{[facility]* [place]} } office. X-rays demonstrated normal bone mineralization. Femoral head sits well in the acetabulum. No significant degenerative changes. Calcifications noted in the lateral hip consistent with calcific bursitis. No evidence of acute injury or fracture. Images interpreted by: Adrian Pettit PA-C [email or web address] Not available 12/05/2022 14:53:02 Reason for Referral None Reported. Results Created Date Observation Date Name Description Value Unit Range Abnormal Flag Note LastModifiedBy Organization Detail LastModifiedTime 10/04/19 23 10/02/2022 NM, bone scan, 3-pha se No observ ation record ed. [email or web address] [facility] [address] [place], [address], 10/03/2022 16:40:45 Result Notes None recorded. Problems Name Problem SNOMED Code Status Onset Date Resolution Date Notes Provider Name and Address Organization Details Recorded Time Trochanteri c bursitis of left hip 7155505164058 03 Active [address], [place], [address], [place] [facility] 3 14:52:25 Pain of left hip joint 6294240692665 00 Active [address], [place], [address], [place] [facility] 3 14:52:28 Chronic pain following right total knee arthroplast y 6008487540482 9100 Active [address], [place], [address], [place] [facility] 3 13:55:37 Loosening of knee joint prosthesis 113831753 Active [address], [place], [address], [place] [facility] 3 15:16:27 Problem Notes None recorded. Procedures Surgical History Date Name Laterality Status Provider Name and Address Organization Details Recorded Time 3 JOURDAN Troch Bursa Inj completed [address], [place], [address], [place] [facility] 12/05/2022 14:52:14 Knee Surgery completed Sharri Zimmer [place] [facility] 09/25/2022 13:44:19 Imaging Results Imaging Date Name Status LastModified by Organiz ation Details LastModified Time 10/02/2022 NM, bone scan, 3-phase completed [email or web address] [facility] [address] [facility], [place], [address], 10/03/2022 16:40:45 Procedure Notes None recorded. Medical Equipment None Reported. Allergies Allergen ID Allergen Name Allergen Category Reaction Reaction Severity Criticality Documentation Date Start Date Code Code System Note Provider Name and Address Organization Details Recorded Time 2016 fentanyl medicatio n Not available Not available Not available 09/25/2022 4337 RxNorm Sharri Zimmer null, [place] - [facility] 13:43:46 Medications Name Sig Start Date [...] Updated DateTime 09/25/2022 162.56 cm 26.8 kg/m2 21939.41 moo Pilidonell Sesaynes [place] - [facility] 09/25/2022 13:44:00 Date Recorded Body height Body mass index (BMI) Body weight Provider Name and Address Organization Details Last Updated DateTime 10/23/2022 162.56 cm 26.8 kg/m2 55757.41 moo Sharri Zimmer [facility] 10/23/2022 14:48:16 Date Recorded Body height Body mass index (BMI) Body weight Provider Name and Address Organization Details Last Updated DateTime 12/05/2022 162.56 cm 26.8 kg/m2 [address]33.[address] [place] [facility], 12/05/2022 13:52:24 Social History None recorded. Functional Status None recorded. Mental Status None recorded. Family History Relationship Description Onset Age of this Age Resolved Age Notes LastModified by Organization Details LastModified Time Mother Diabetes mellitus [email or web address] Not available 2022 13:44:14 Medical History Condition Response Hypertension Y Gynecological HistoryNo gynecological history recorded. Obstetrics History GPAL:G 0 P 0 0 0 0 Past Encounters Encounter ID Performer Location Encounter Start Date Encounter Closed Date Diagnosis/Indication Diagnosis SNOMED-CT Code Diagnosis ICD10 Code Diagnosis Note [id number] Luis Zuniga MD [place] [id number] 09/25/2022 13:21:18 09/25/2022 14:08:23 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 3248287397 8592393 T84.84XA [id number] Luis Zuniga MD [place] [id number] 10/23/2022 14:25:16 10/23/2022 15:16:52 History of right total knee replacement 4070493399 667473 Z96.651 Loosening of knee joint prosthesis 869029990 T84.032D [id number] ADRIAN PETTIT PA-C [address] [address] 12/05/2022 13:23:57 12/05/2022 15:32:21 Pain of left hip joint 8011923099 56087 M25.552 Trochanter ic bursitis of left hip 4518065201 44106 M70.62 Health Concerns Section Related Observation LastModified by Organization Detai ls LastModified Time None Recorded Concern Status LastModified by Organization Details LastModified Time None Recorded Advance Directives Directive None Recorded Payers Encounter Date Sequence Insurance Name Policy Number Policy Galicia Covered Member ID Galicia Member ID Guarantor Name 09/25/2022 1 MEDICARE B-CT: NGS Brooklynn Novak [id number] Brooklynn Novak 09/25/2022 2 [employer] HE[employer] OPTIONS (MEDICARE SUPPLEMENT) Brooklynn Novak [id number] Brooklynn Novak 10/23/2022 1 MEDICARE B-CT: NELLA Novak [id number] Brooklynn Novak 10/23/2022 2 [employer] HE[employer] OPTIONS (MEDICARE SUPPLEMENT) Brooklynn Novak [id number] Brooklynn Novak 12/05/2022 1 MEDICARE B-CT: NELLA Novak [id number] Brooklynn Novak 12/05/2022 2 [employer] (MEDICARE SUPPLEMENT) Brooklynn Novak [id number] Brooklynn Novak Notes Date Note Type Note Provider Name and Address Organization Details Recorded Time 09/25/2022 text/html HPI:?Thank you for the pleasure of requesting a consultation on this patient. Patient comes in complaining of right knee pain.Patient underwent a right medial unicompartmental knee replacement in 2016. This was complicated by failure of the [...] Luis Zuniga MD [address], [place], [address], [place] [facility] 09/25/2022 14:01:01 10/23/2022 text/html HPI:? patient [...] with right total knee arthroplasty using the Neosensn TS revision total knee replacement system. However, [...] Luis Zuniga MD [address], [place], [address], [place] [facility] 10/23/2022 15:16:40 12/05/2022 text/html Patient is [...] ADRIAN PETTIT PA-C [address], [place], [address], [place] [facility] 12/05/2022 14:54:29 OBGyn Episode No OBEpisode recorded.
--- OUTSIDE RECORDS SUMMARY | 2024-10-21 14:35 | XMS_ITS | Encounter Summary ---
Author Organization [facility] Address [address] [place] [address] Care Team Providers Care Teradata Architect Name Role Phone Thierry Leslie MD Primary Care Provider [phone] Thierry Leslie MD Unavailable [phone] Brent Crisostomo MD Primary Care Provider [phone] Encounter Details Date Type Department Care Team (Late st Contact Info) Description 09/03/2023 Scanned Document [facility] [address] [place] [address] Ruben Harrell MD [address] [place] [address] Social History Tobacco Use Types Packs/Day Years [...] on filedocumented in this encounter Care Teams Teradata Architect Relationship Specialty Start Date End Date Thierry Leslie MD [address] [place] [address] PCP - General Internal Medicine 07/07/20 10/15/23 Brent Crisostomo MD 701 [facility] [address] [place] [address] PCP - General Internal Medicine 10/16/23 Thierry Leslie MD [address] [place] [address] Internal Medicine 07/07/20 10/15/23 documented as of this encounter
--- OUTSIDE RECORDS SUMMARY | 2024-10-21 14:35 | XMS_ITS | Patient Health Record ---
Author Organization [facility] Billing Info Address [address] [place], [place] [address] Care Team Providers Care Pan Greaser Name Role Phone LUCAS GUARDADO Unavailable [phone] LUCAS GUARDADO M.D. Unavailable Unavailable Reason For Referral No Information Plan Of Treatment No Information Insurance Providers Payer Name Payer Address Payer Phone Subscriber Number Group Number Insured Name Patient Relationship to Insured Coverage Start Date Coverage End Date MEDICARE [place] PART B [address] [facility] MELANY PEARSON [id number] Brooklynn Novak Self - patient is the insured 2 2 [facility] MEDICARE SUPPLEMENT [address] [address] [place], [place] [id number] Brooklynn Novak Self - patient is the insured 2 2
--- OUTSIDE RECORDS SUMMARY | 2024-10-21 14:35 | XMS_ITS | Clinical Summary ---
Author Organization [facility] [employer] [place] Address [address] [place] [address] Phone Care Team Providers Care Junior Web Developer Name Role Phone Brent Castillo MD Primary Care Provider [phone] Allergies Active Allergy Reactions Criticality Noted Date Comments Audie Inhibitors 09/21/2021 Contraindicated with monthly bee venom injection Bee Venom Protein (Honey Bee) Swelling 05/19/2020 Beta-Blockers (Beta-Adrenergic Blocking Agts) 09/21/2021 Bradycardia Fentanyl 02/17/2021 Other reaction(s): UNKNOWN Medications clonazePAM (KlonoPIN) 1 mg tablet 1 tablet (1 mg total) 2 (two) times a day. 05/10/20 20 Active EPINEPHrine (EPIPEN) 0.3 mg/0.3 mL injection epinephrine 0.3 mg/0.3 mL injection, auto-injector USE DIRECTED FOR ANAPHYLAXIS AND CALL 911 01/07/20 18 Active lidocaine (ZTlido) 1.8 % adhesive patch,medicated ZTlido 1.8 % topical patch APPLY 1 PATCH EXTERNALLY TO THE SKIN ONCE DAILY. MAY WEAR FOR UP TO 12 HOURS Active simvastatin (ZOCOR) 20 mg tablet Take 1 tablet (20 mg total) by mouth 1 (one) time each day. 08/10/19 21 Active Lactobacillus acidophilus (PROBIOTIC ACIDOPHILUS ORAL) 1 (one) time each day. 03/12/20 19 Active olmesartan (BENICAR) 5 mg tablet Take 2 tablets (10 mg total) by mouth 1 (one) time each day. 180 tablet 3 05/29/20 Active diphenoxylate-a tropine (LOMOTIL) 2.5-0.025 mg per tablet Take 1 tablet by mouth every 6 (six) hours as needed for diarrhea. 12/17/19 24 025 Discontinued Active Problems Problem Noted Date Diagnosed Date Acquired hammer toe of left foot 02/04/2024 Epigastric pain 02/04/2024 Pain of left hip joint 12/05/2022 Trochanteric bursitis of left hip 12/05/2022 Loosening of knee joint prosthesis (CMS/[facility] V24) 10/23/2022 Arthritis of right knee 06/01/2021 Cervical radiculopathy 06/01/2021 Lumbar radiculopathy 06/01/2021 Complex regional pain syndrome type 2 of lower e xtremity 06/01/2021 Degeneration of lumbar intervertebral disc 06/01 Neuritis of right saphenous nerve 06/01/2021 HTN (hypertension) 09/14/2020 Palpitations 06/16/2020 Overview (04/19/2024): Hypertension Sinus tachycardia cristofer--2017--normal pefusion, EF>70 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, chronic pain requiring epidural pain injections Echo--06/16/20--EF>70, normal strain, normal studyu 30 day loop Lipids--[id number], HDL57, TG151, BNL855 Complex regional pain syndrome of lower limb 07/2018 Bilateral tinnitus 05/17/2017 Chest pain 05/17/2017 Primary osteoarthritis involving multiple joints 05/17/2017 Hyperlipidemia 10/04/2016 Encounters Date Type Department Care Team Description 09/29/2024 Telephone [facility] [place] [address] [place] [address] Isma Barrera MA 08/31/2024 3:40 PM EDT Office Visit [facility] [address] [place] [phone] Yesi Campos MD Diarrhea, unspecified type (Primary Dx); Irritable bowel syndrome with diarrhea from Last 3 Months Immunizations Name Administration [...] Sign Reading Time Taken Comments Blood Pressure 120/70 08/31/2024 4:02 PM EDT Pulse 62 08/31/2024 4:02 PM EDT Temperature - - Respiratory Rate - - Oxygen Saturation 97% 08/31/2024 4:02 PM EDT Inhaled Oxygen Concentration - - Weight 69 kg (152 lb 3.2 oz) 08/31/2024 4:02 PM EDT Height 162.6 cm (5' 4 ) 08/31/2024 4:02 PM EDT Body Mass Index 26.13 08/31/2024 4:02 PM EDT Plan of Treatment Upcoming Encounters Date Type Department Care Team (Late st Contact Info) Description 11/02/2024 1:00 PM EDT Office Visit [facility] [address] [place] [address] Yesi Campos MD [address] [facility] [address] [place] [address] 05/28/2025 2:00 PM EST Office Visit [facility] [address] [facility] [address] [place] [address] Franklin Whalen MD [address] [facility] [address] [place], [place] [id number] Health Maintenance Due Date Last Done Comments Zoster Vaccines (1 of 2) 1989 DTaP,Tdap,and Td Vaccines (3 - Td or Tdap) 12/19/2021 12/20/2011, 03/17/2001 Depression Screening 05/24/2022 Falls Risk Assessment 05/24/2022 Medicare Annual Wellness Visit 05/24/2022 Osteoporosis Screening (Bone Density Screening) 05/24/2022 Social Influencers of Health Screening 05/24/2022 COVID-19 Vaccine ( season) 2024 04/20/2022, 12/10/2021, 03/21/2021, Additional history exists Hypertension/CHF/CAD Annual BMP Blood Test 09/01/2025 09/01/2024 Cholesterol Screening (Lipid Panel) 09/01/2029 09/01/2024 RSV Immunization Adult Patients Completed 05/16/2023 Influenza Vaccine Completed 03/05/2024, , [...] age to complete this topic Meningococcal B Vaccine Aged Out No l onger eligible based on patient's age to complete this topic RSV Immunization Patients Under 20 months Aged Out No longer eligible based on patient's age to complete this topic Varicella Vaccines Aged Out No longer eligible based on patient's age to complete this topic Procedures Procedure Name Priority Date/Time Associated Diagnosis Comments CLOSTRIDIUM DIFFICILE TOXIN Routine 09/28/2024 12:09 PM EDT Diarrhea, unspecified type CBC WITH AUTO DIFFERENTIAL Routine 09/01/2024 2:01 PM EDT Loose stools Diarrhea, unspecified type Essential hypertension, malignant Familial combined hyperlipidemia COMPREHENSIVE METABOLIC PANEL Routine 09/01/2024 2:01 PM EDT Loose stools Diarrhea, unspecified type Essential hypertension, malignant Familial combined hyperlipidemia THYROID STIMULATING HORMONE WITH REFLEX FREE T4 Routine 09/01/2024 2:01 PM EDT Loose stools Diarrhea, unspecified type Essential hypertension, malignant Familial combined hyperlipidemia THYROXINE FREE Routine 09/01/2024 2:01 PM EDT Loose stools Diarrhea, unspecified type Essential hypertension, malignant Familial combined hyperlipidemia LIPID PANEL WITH REFLEX TO DIRECT LDL Routine 09/01/2024 2:01 PM EDT Loose stools Diarrhea, unspecified type Essential hypertension, malignant Familial combined hyperlipidemia CBC AND DIFFERENTIAL Routine 09/01/2024 2:01 PM EDT Loose stools Diarrhea, unspecified type Essential hypertension, malignant Familial combined hyperlipidemia CULTURE URINE Routine 08/13/2024 12:19 PM EST Loose stools Diarrhea, unspecified type Essential hypertension, malignant Familial combined hyperlipidemia PANCREATIC ELASTASE 1 Routine 08/13/2024 11:36 AM EST Loose stools Diarrhea, unspecified type GASTROINTESTINAL PATHOGENS BY PCR Routine 08/13/2024 11:36 AM EST Loose stools Diarrhea, unspecified type CALPROTECTIN, STOOL Routine 08/13/2024 1 0:43 AM EST Loose stools Diarrhea, unspecified type from Last 3 Months Results * Clostridium difficile toxin (09/28/2024 12:09 PM EDT) Clostridium difficile GDH Antigen Negative Negative 09/29/2024 10:04 AM EDT [facility] C difficile Toxins A+B, EIA Negative Negative 09/29/2024 10:04 AM EDT [facility] Stool Rectum structure / Unknown Non-blood Collection / Unknown 09/28/2024 12:09 PM EDT 09/28/2024 12:09 PM EDT Yesi Campos MD LAB MICROBIOLOGY - GENERA L ORDERABLES Final Result [facility] [address] [place] [address], [place] [phone] * Lipid panel with reflex to direct LDL (09/01/2024 2:01 PM EDT) Cholesterol 175 0 - 200 mg/dL LAB CHEMISTRY METHOD 09/01/2024 8:03 PM EDT [facility] Triglycerides 137 <150 mg/dL LAB CHEMISTRY METHOD 09/01/2024 8:03 PM EDT [facility] HDL 49 33 - 92 mg/dL LAB CHEMISTRY METHOD 09/01/2024 8:03 PM EDT [facility] LDL Calculated 99 50 - 130 mg/dL LAB CHEMISTRY METHOD 09/01/2024 8:03 PM EDT [facility] VLDL Cholesterol Sahil 27.4 mg/dL LAB CHEMISTRY METHOD 09/01/2024 8:03 PM EDT [facility] Comment:No established refer ence range. Blood Venous blood specimen / Unknown Venipuncture / Unknown 09/01/2024 2:01 PM EDT 09/01/2024 2:01 PM EDT us Brent Castillo MD LAB BLOOD ORDERABLES Final Res ult [facility] [address] [place] [address], [place] [phone] * Thyroid stimulating hormone with reflex free T4 (09/01/2024 2:01 PM EDT) TSH 1.34 0.45 - 5.33 mcIU/mL LAB CHEMISTRY METHOD 09/01/2024 8:12 PM EDT [facility] Blood Venous blood specimen / Unknown Venipuncture / Unknown 09/01/2024 2:01 PM EDT 09/01/2024 2:01 PM EDT us Brent Castillo MD LAB BLOOD ORDERABLES Final Res ult [facility] [address] [place] [address], [place] [phone] * (ABNORMAL) CBC auto differential (09/01/2024 2:01 PM EDT) WBC 7.9 4.0 - 10.5 [facility] LAB HEMETOLOGY METHOD 09/01/2024 7:42 PM EDT [facility] RBC 4.53 4.20 - 5.40 M/mcL LAB HEMETOLOGY METHOD 09/01/2024 7:42 PM EDT [facility] Hemoglobin 13.6 12.5 - 16.0 g/dL LAB HEMETOLOGY METHOD 09/01/2024 7:42 PM EDT [facility] Hematocrit 40.4 37.0 - 47.0 % LAB HEMETOLOGY METHOD 09/01/2024 7:42 PM EDT [facility] MCV 89.2 78.0 - 100.0 FL LAB HEMETOLOGY METHOD 09/01/2024 7:42 PM EDT [facility] MCH 30.0 25.0 - 33.0 pcg LAB HEMETOLOGY METHOD 09/01/2024 7:42 PM EDT [facility] MCHC 33.7 32.0 - 36.0 g/dL LAB HEMETOLOGY METHOD 09/01/2024 7:42 PM EDT [facility] RDW 13.5 12.1 - 16.2 % LAB HEMETOLOGY METHOD 09/01/2024 7:42 PM EDT [facility] Platelets 261 150 - 450 K/mcL LAB HEMETOLOGY METHOD 09/01/2024 7:42 PM EDT [facility] MPV 9.0 7.4 - 11.4 FL LAB HEMETOLOGY METHOD 09/01/2024 7:42 PM EDT [facility] Neutrophils Relative 47.8 44.0 - 74.0 % LAB HEMETOLOGY METHOD 09/01/2024 7:42 PM EDT [facility] Lymphocytes Relative 42.4 20.0 - 48.0 % LAB HEMETOLOGY METHOD 09/01/2024 7:42 PM EDT [facility] Monocytes Relative 7.8 2.0 - 12.0 % LAB HEMETOLOGY METHOD 09/01/2024 7:42 PM EDT [facility] Eosinophils Relative 1.6 0.0 - 6.0 % LAB HEMETOLOGY METHOD 09/01/2024 7:42 PM EDT [facility] Basophils Relative 0.4 0.0 - 2.0 % LAB HEMETOLOGY METHOD 09/01/2024 7:42 PM EDT [facility] Neutrophils Absolute 3.80 1.80 - 7.80 K/mcL LAB HEMETOLOGY METHOD 09/01/2024 7:42 PM EDT [facility] Lymphocytes Absolute 3.30(H) 1.00 - 3.20 K/mcL LAB HEMETOLOGY METHOD 09/01/2024 7:42 PM EDT [facility] Monocytes Absolute 0.60 0.00 - 0.80 K/mcL LAB HEMETOLOGY METHOD 09/01/2024 7:42 PM EDT [facility] Eosinophils Absolute 0.10 0.00 - 0.50 K/mcL LAB HEMETOLOGY METHOD 09/01/2024 7:42 PM EDT [facility] Basophils Absolute 0.00 0.00 - 0.20 K/mcL LAB HEMETOLOGY METHOD 09/01/2024 7:42 PM EDT [facility] Blood Venous blood specimen / Unknown Venipuncture / Unknown 09/01/2024 2:01 PM EDT 09/01/2024 2:01 PM EDT us Brent Castillo MD LAB BLOOD ORDERABLES Final Res ult [facility] [address] [place] [id number], * Thyroxine free (09/01/2024 2:01 PM EDT) Free T4 0.90 0.50 - 1.30 ng/dL LAB CHEMISTRY METHOD 09/01/2024 8:12 PM EDT [facility] Blood Venous blood specimen / Unknown Venipuncture / Unknown 09/01/2024 2:01 PM EDT 09/01/2024 2:01 PM EDT us Brent Castillo MD LAB BLOOD ORDERABLES Final Res ult [facility] [address] [place] [address], [place] [phone] * (ABNORMAL) Comprehensive metabolic panel (09/01/2024 2:01 PM EDT) Sodium 141 135 - 145 mmol/L LAB CHEMISTRY METHOD 09/01/2024 8:03 PM EDT [facility] Potassium 4.7 3.5 - 5.1 mmol/L LAB CHEMISTRY METHOD 09/01/2024 8:03 PM EDT [facility] Chloride 105 98 - 107 mmol/L LAB CHEMISTRY METHOD 09/01/2024 8:03 PM EDT [facility] CO2 29 24 - 32 mmol/L LAB CHEMISTRY METHOD 09/01/2024 8:03 PM EDT [facility] Anion Gap 7 5 - 14 LAB CHEMISTRY METHOD 09/01/2024 8:03 PM EDT [facility] Glucose 99 70 - 99 mg/dL LAB CHEMISTRY METHOD 09/01/2024 8:03 PM EDT [facility] BUN 17 7 - 17 mg/dL LAB CHEMISTRY METHOD 09/01/2024 8:03 PM EDT [facility] Creatinine 0.80 0.50 - 1.00 mg/dL LAB CHEMISTRY METHOD 09/01/2024 8:03 PM EDT [facility] eGFR 72 >=60 mL/min/1. 73m2 LAB CHEMISTRY METHOD 09/01/2024 8:03 PM EDT [facility] Comment:Calculation based on the??Chronic Kidney Disease Epidemiology Collaboration (CKD-EPI) equation refit??without adjustment for race. BUN/Creatinine Ratio 21.3(H) 12.0 - 20.0 LAB CHEMISTRY METHOD 09/01/2024 8:03 PM EDT [facility] Calcium 9.8 8.4 - 10.2 mg/dL LAB CHEMISTRY METHOD 09/01/2024 8:03 PM EDT [facility] AST (SGOT) 12 5 - 40 unit/L LAB CHEMISTRY METHOD 09/01/2024 8:03 PM EDT [facility] ALT (SGPT) 7 7 - 52 unit/L LAB CHEMISTRY METHOD 09/01/2024 8:03 PM EDT [facility] Alkaline Phosphatase 68 34 - 104 unit/L LAB CHEMISTRY METHOD 09/01/2024 8:03 PM EDT [facility] Total Protein 6.6 6.4 - 8.5 g/dL LAB CHEMISTRY METHOD 09/01/2024 8:03 PM EDT [facility] Albumin 4.3 3.5 - 5.0 g/dL LAB CHEMISTRY METHOD 09/01/2024 8:03 PM EDT [facility] Total Bilirubin 0.7 0.3 - 1.0 mg/dL LAB CHEMISTRY METHOD 09/01/2024 8:03 PM EDT [facility] Blood Venous blood specimen / Unknown Venipuncture / Unknown 09/01/2024 2:01 PM EDT 09/01/2024 2:01 PM EDT us Brent Castillo MD LAB BLOOD ORDERABLES Final Res ult [facility] [address] [place] [address], [place] [phone] * Culture urine (08/13/2024 12:19 PM EST) Culture, Urine No growth 08/14/2024 9:27 AM EST [facility] Urine Urine specimen obtained by clean catch procedure / Unknown Non-blood Collection / Unknown 08/13/2024 12:19 PM EST 08/13/2024 12:19 PM EST us Brent Castillo MD LAB MICROBIOLOGY - GENERAL ORD ERABLES Final Result [facility] [address] [place] [address], * Gastrointestinal pathogens molecular study (08/13/2024 11:36 AM EST) Campylobacter Detection by PCR Not Detected Not Detected LAB MICROBIOLOGY METHOD 08/13/2024 5:12 PM EST [facility] Plesiomonas shigelloides Detection by PCR Not Detected Not Detected LAB MICROBIOLOGY METHOD 08/13/2024 5:12 PM EST [facility] Salmonella Detection by PCR Not Detected Not Detected LAB MICROBIOLOGY METHOD 08/13/2024 5:12 PM EST [facility] Vibrio Detection by PCR Not Detected Not Detected LAB MICROBIOLOGY METHOD 08/13/2024 5:12 PM EST [facility] Vibrio cholerae Detection by PCR Not Detected Not Detected LAB MICROBIOLOGY METHOD 08/13/2024 5:12 PM EST [facility] Yersinia enterocolitica Detection by PCR Not Detected Not Detected LAB MICROBIOLOGY METHOD 08/13/2024 5:12 PM EST [facility] Enteroaggregative E coli EAEC Detection by PCR Not Detected Not Detected LAB MICROBIOLOGY METHOD 08/13/2024 5:12 PM EST [facility] Enteropathogenic E coli EPEC Detection Not Detected Not Detected LAB MICROBIOLOGY METHOD 08/13/2024 5:12 PM EST [facility] Enterotoxigenic E coli ETEC LTST Detection Not Detected Not Detected LAB MICROBIOLOGY METHOD 08/13/2024 5:12 PM EST [facility] Shiga-like toxin producing E coli STEC STX1 STX2 Det Not Detected Not Detected LAB MICROBIOLOGY METHOD 08/13/2024 5:12 PM EST [facility] Shigella Enteroinvasive E coli EIEC Detection Not Detected Not Detected LAB MICROBIOLOGY METHOD 08/13/2024 5:12 PM EST [facility] Cryptosporidium Detection by PCR Not Detected Not Detected LAB MICROBIOLOGY METHOD 08/13/2024 5:12 PM EST [facility] Cyclospora cayetanensis Detection by PCR Not Detected Not Detected LAB MICROBIOLOGY METHOD 08/13/2024 5:12 PM EST [facility] Entamoeba histolytica Detection by PCR Not Detected Not Detected LAB MICROBIOLOGY METHOD 08/13/2024 5:12 PM EST [facility] Giardia lamblia Detection by PCR Not Detected Not Detected LAB MICROBIOLOGY METHOD 08/13/2024 5:12 PM EST [facility] Adenovirus F 40 41 Detection by PCR Not Detected Not Detected LAB MICROBIOLOGY METHOD 08/13/2024 5:12 PM EST [facility] Astrovirus Detection by PCR Not Detected Not Detected LAB MICROBIOLOGY METHOD 08/13/2024 5:12 PM EST [facility] Norovirus GI GII Detection by PCR Not Detected Not Detected LAB MICROBIOLOGY METHOD 08/13/2024 5:12 PM EST [facility] Sapovirus Detection by PCR Not Detected Not Detected LAB MICROBIOLOGY METHOD 08/13/2024 5:12 PM EST [facility] Rotavirus A Detection by PCR Not Detected Not Detected LAB MICROBIOLOGY METHOD 08/13/2024 5:12 PM EST [facility] Stool Rectum structure / Unknown Non-blood Collection / Unknown 08/13/2024 11:36 AM EST 08/13/2024 11:36 AM EST Yesi Solo Campos MD LAB MICROBIOLOGY - GENERA L ORDERABLES Final Result [facility] [address] [place] [id number], * Pancreatic elastase 1 (08/13/2024 11:36 AM EST) Pancreatic Elastase 1 689.0 >200 mcg/g 08/17/2024 3:07 PM EST [facility] Comment: Adult and Pediatric Referance Ranges for Pancreatic Elastase-1: Normal: ? >200 mcg/g Moderate Pancreatic Insufficiency: ?100-200 mcg/g Severe Pancreatic Insufficiency: ?<100 mcg/g Test performed at [place], [address], [place] ??[address] ? [phone] Tamara Barkley MD, PhD - Human Geography Instructor Stool Rectum structure / Unknown Non-blood Collection / Unknown 08/13/2024 11:36 AM EST 08/13/2024 11:36 AM EST us Yesi Campos MD LAB BODY FLUIDS AND STOOL S ORDERABLES Final Result Performing Organization Address [facility] de Phone Number [facility] [address] [phone] * Calprotectin, stool (08/13/2024 10:43 AM EST) Calprotectin, Fecal 14.7 <50 mcg/g 08/17/2024 3:07 PM EST [facility] Comment: <50 mcg/g ?Normal 50 - 120 mcg/g ?? Borderline >120 mcg/g ? Abnormal Borderline results suggest repeat testing in 4 to 6 weeks. Test performed at [place], [address], [place] ??[address] ? [phone] Tamara Barkley MD, PhD - Human Geography Instructor Stool Rectum structure / Unknown Non-blood Collection / Unknown 08/13/2024 10:43 AM EST 08/13/2024 11:36 AM EST Yesi Campos MD LAB BODY FLUIDS AND STOOL S ORDERABLES Final Result Performing Organization Address [facility] de Phone Number [facility] [address], [place] [phone] from Last 3 Months Insurance MEDICARE [facility] MEDICARE [facility] Advance Directives Documents on File Type Date Recorded Patient Meat Trimmer Expl anation Health Care Decision (hx) 09/10/2021 AD ALECIA DIRECTIVE Care Teams Junior Web Developer Relationship Specialty Start Date End Date Brent Castillo MD [address] [place] [address] PCP - General Refrigerator Repair Technician 12/15/21
== END 2024-10-21 13:20 | disposition home or self-care (01) ==
LOC: HO.HAP 13:19
PROVIDERS: Visit Provider Internal Medicine
DX: Z46.1 Encounter for fitting and adjustment of hearing aid (principal); H90.3 Sensorineural hearing loss, bilateral
CPT/HCPCS: V5267

== ENCOUNTER 2025-01-05 14:24 | Outpatient (REF) | payer SELFPAY ==
--- OUTSIDE RECORDS SUMMARY | 2025-01-05 15:40 | XMS_ITS ---
Author Name [facility] Organization Unknown Results Test Name/Text Value Interpretation Date Range Source Elastase Panc Stl-mCnt 689.0 mcg/g Normal 08/17/2024 200 - [facility] Calprotectin Stl-mCnt 14.7 mcg/g Normal 08/17/2024 - 50 [facility] History of Medication Use Medication Directions Dispensed Refills Start Date End Date Stat cholestyramine (QUESTRAN) 4 gram powder Take 1 packet (4 g total) by mouth 1 (one) time each day. Dissolve in 8 oz of liquid and drink before a meal 11/02/2024 active rifAXIMin (XIFAXAN) 550 mg tablet Take 1 tablet (550 mg total) by mouth 3 (three) times a day for 14 days. 08/31/2024 active olmesartan (BENICAR) 5 mg tablet Take 2 tablets (10 mg total) by mouth 1 (one) time each day. 05/29/2024 active diphenoxylate-atropin e (LOMOTIL) 2.5-0.025 mg per tablet Take 1 tablet by mouth every 6 (six) hours as needed for diarrhea. 12/17/2023 active olmesartan (BENICAR) 5 mg tablet Take by mouth. Taking two 5 mg Q AM 06/14/2023 05/29/2024 aborted olmesartan (BENICAR) tablet 20 mg Take 1 tablet (20 mg total) by mouth daily. 06/14/2023 06/14/2023 aborted amLODIPine (NORVASC) tablet 2.5 mg Take 1 tablet (2.5 mg total) by mouth daily. 06/11/2023 06/14/2023 aborted diphenoxylate-atropin e (LOMOTIL) 2.5-0.025 MG per tablet TAKE ONE TABLET BY MOUTH EVERY DAY NEEDED FOR DIARRHEA 06/11/2023 active olmesartan (BENICAR) tablet 5 mg Take 2 tablets (10 mg total) by mouth daily. 03/08/2023 06/14/2023 aborted meclizine (ANTIVERT) 12.5 MG tablet Take 1 tablet (12.5 mg total) by mouth 3 (three) times a day as needed. 09/21/2021 active simvastatin (ZOCOR) 20 mg tablet Take 1 tablet (20 mg total) by mouth 1 (one) time each day. 08/10/2020 active simvastatin (ZOCOR) tablet 20 mg Take 1 tablet (20 mg total) by mouth daily. 08/10/2020 active clonazePAM (KlonoPIN) 1 mg tablet 1 tablet (1 mg total) 2 (two) times a day. 05/10/2020 active clonazePAM (KlonoPIN) 1 mg tablet 1 tablet (1 mg total) 2 (two) times a day. 05/10/2020 active clonazePAM (KlonoPIN) 1 MG tablet Take 0.5 mg by mouth daily. 05/10/2020 active Lactobacillus acidophilus (PROBIOTIC ACIDOPHILUS ORAL) 1 (one) time each day. 03/12/2019 active Lactobacillus acidophilus (PROBIOTIC ACIDOPHILUS ORAL) 1 (one) time each day. 03/12/2019 active loperamide (IMODIUM) 1 MG/7.5ML solution Take 15 mL (2 mg total) by mouth. 03/12/2019 active EPINEPHrine (EPIPEN) 0.3 mg/0.3 mL injection epinephrine 0.3 mg/0.3 mL injection, auto-injector USE DIRECTED FOR ANAPHYLAXIS AND CALL 9101/06/2018 active EPINEPHrine (EPIPEN) 0.3 mg/0.3 mL injection epinephrine 0.3 mg/0.3 mL injection, auto-injector USE DIRECTED FOR ANAPHYLAXIS AND CALL 9101/06/2018 active EPINEPHrine 0.3 MG/0.3ML SOAJ epinephrine 0.3 mg/0.3 mL injection, auto-injector USE DIRECTED FOR ANAPHYLAXIS AND CALL 9101/06/2018 active clonazepam 1 mg tablet TAKE 1-2 TABLETS BY MOUTH AT BEDTIME active diphenoxylate-atropin e 2.5 mg-0.025 mg tablet TAKE ONE TABLET BY MOUTH FOUR TIMES A DAY NEEDED FOR DIARRHEA active meloxicam 7.5 mg tablet TAKE ONE TABLET BY MOUTH EVERY DAY WITH FOOD active simvastatin 20 mg tablet TAKE ONE TABLET BY MOUTH AT BEDTIME active lidocaine (ZTlido) 1.8 % adhesive patch,medicated ZTlido 1.8 % topical patch APPLY 1 PATCH EXTERNALLY TO THE SKIN ONCE DAILY. MAY WEAR FOR UP TO 12 HOURS active lidocaine (ZTlido) 1.8 % adhesive patch,medicated ZTlido 1.8 % topical patch APPLY 1 PATCH EXTERNALLY TO THE SKIN ONCE DAILY. MAY WEAR FOR UP TO 12 HOURS active Allergies Allergen Reaction Severity Comment Documented Date Source Statu s BETA ADRENERGIC BLOCKERS Bradycardia 09/21/2021 [facility] active BETA-BLOCKERS (BETA-ADRENERGI C BLOCKING AGTS) Bradycardia 09/21/2021 [facility] active FENTANYL Other reaction( s): UNKNOWN 02/17/2021 [facility] active BEE STING SWELLING 05/19/2020 [facility] active BEE VENOM PROTEIN (HONEY BEE) SWELLING 05/19/2020 [facility] active OXYCODONE OTHER Has a hard time coming off medication 05/17/2017 [facility] active MACIEL INHIBITORS Contraindicat ed with monthly bee venom injection [facility] Problems Problem Status Onset Date Problem Type Date of Resolution Source Complex regional pain syndrome type 2 of lower extremity active 2021-06-01 ProblemAct [facility] Fatigue, unspecified type active Encounter[facility]osisAct [facility] HTN (hypertension) active 2020-09-14 ProblemAct [facility] Trochanteric bursitis of left hip active 2022-12-05 ProblemAct [facility] Bilateral tinnitus active 2017-05-17 ProblemAct [facility] Acquired hammer toe of left foot active 2024-02-04 ProblemAct [facility] Chest pain active 2017-05-17 ProblemAct [facility] Primary osteoarthritis involving multiple joints active 2017-05-17 ProblemAct [facility] Complex regional pain syndrome type I active 2021-06-01 ProblemAct [facility] Arthritis of right knee active 2021-06-01 ProblemAct [facility] Degeneration of lumbar intervertebral disc active 2021-06-01 ProblemAct [facility] Cervical radiculopathy active 2021-06-01 ProblemAct [facility] Palpitations active 2020-06-16 ProblemAct [facility] Complex regional pain syndrome of lower limb active 2018-10-16 ProblemAct [facility] Epigastric pain active 2024-02-04 ProblemAct [facility] Hyperlipidemia active 2016-10-04 ProblemAct [facility] Lumbar radiculopathy active 2021-06-01 ProblemAct [facility] Tinnitus active 2017-05-17 ProblemAct [facility] Pain of left hip joint active 2022-12-05 ProblemAct [facility] 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) active 2022-10-23 ProblemAct [facility] Neuritis of right saphenous nerve active 2021-06-01 ProblemAct [facility] Back pain active 2017-05-17 ProblemAct [facility] Degeneration of lumbar intervertebral disc active 2021-06-01 ProblemAct [facility] Primary osteoarthritis involving multiple joints active 2017-05-17 ProblemAct [facility] Chronic pain of right knee active EncounterDiagnosisAct [facility] 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 active 2022-09-25 ProblemAct [facility] Loosening of knee joint prosthesis active 2022-10-23 ProblemAct [facility] Immunizations Vaccine Date Source Lot Number Status [place] SARS-CoV-2 COVID-19, mRNA, LNP-S, preservative free [id number] [place] SARS-CoV-2 COVID-19, mRNA, LNP-S, preservative free 07/22/2020 [facility] [id number] completed Influenza, Unspecified 04/03/2019 [facility] m[facility] Influenza trivalent, 0.5mL ( Fluzone High-dose) 65yo and older 03/14/2018 [facility] [id number] comple chriss Pneumococcal conjugate 13 va lent (Prevnar 13, PCV13) 2mo and older 05/17/2017 [facility] [id number] complet ed Influenza trivalent, with pr eservative (Fluzone; Afluria) 6mo and older 03/06/2014 [facility] completed Influenza trivalent, with pr eservative (Fluzone; Afluria) 6mo and older 03/08/2013 [facility] completed Tdap Tetanus diptheria acell ular pertussis (Boostrix; Adacel) 7yo and older 12/20/2011 [facility] completed Influenza trivalent, with pr eservative (Fluzone; Afluria) 6mo and older 03/25/2010 [facility] completed Influenza, Unspecified 03/25/2009 [facility] co mpleted Pneumococcal polysaccharide 23 valent (Pneumovax 23) 2yo and older 03/17/2004 [facility] com pleted Td Tetanus diptheria, preser vative free (Tenivac) 7yo and older 03/17/2001 [facility] complete d Encounters Encounter Type Encounter Reason Primary Diagnosis Location Date Ambulatory [facility] 11/02/2024 Ambulatory Diarrhea, unspecified Diarrhea, unspecifi ed [facility] 08/31/2024 [facility] right [facility] Pain [facility] right knee [facility]24 Ambulatory Follow-up Follow-up [place] [employer] [facility] 07/14/2024 [facility] right [facility] Pain in right knee [facility]/15/[facility]24 Ambulatory Pain in right knee Pain in right knee [facility] 06/05/2024 Ambulatory Follow-up [facility] 05/29/2024 Ambulatory Other specified enthesopathies of right lower limb, excluding foot Other specified enthesopathies of right lower limb, excluding foot [facility] 01/15/2024 Ambulatory Other specified enthesopathies of right lower limb, excluding foot Other specified enthesopathies of right lower limb, excluding foot [facility] 01/13/2024 Ambulatory Other specified enthesopathies of right lower limb, excluding foot Other specified enthesopathies of right lower limb, excluding foot [facility] 01/01/2024 Ambulatory [facility] 01/01/2024 Ambulatory Other specified enthesopathies of right lower limb, excluding foot Other specified enthesopathies of right lower limb, excluding foot [facility] 12/30/2023 Ambulatory Other specified enthesopathies of right lower limb, excluding foot Other specified enthesopathies of right lower limb, excluding foot [facility] 12/23/2023 Ambulatory Follow-up Follow-up [facility] 12/10/2023 Ambulatory Pain Pain [facility] 11/12/2023 Ambulatory Other specified enthesopathies of right lower limb, excluding foot Other specified enthesopathies of right lower limb, excluding foot [facility] 10/08/2023 Ambulatory Other specified enthesopathies of right lower limb, excluding foot Other specified enthesopathies of right lower limb, excluding foot [facility] 10/03/2023 Ambulatory [facility] 10/01/2023 Ambulatory Other specified enthesopathies of right lower limb, excluding foot Other specified enthesopathies of right lower limb, excluding foot [facility] 09/20/2023 Ambulatory PT Initial Evaluation PT Initial Evaluati on [facility] 09/13/2023 Ambulatory Pain in right knee Pain in right knee [facility] 09/10/2023 Ambulatory Pain in right knee Pain in right knee [facility] 09/10/2023 Ambulatory Complete rotator cuf f tear or rupture of left shoulder, not specified as traumatic Complete rotator cuff tear or rupture of left shoulder, not specified as traumatic [facility] 09/10/2023 Ambulatory Complete rotator cuf f tear or rupture of left shoulder, not specified as traumatic Complete rotator cuff tear or rupture of left shoulder, not specified as traumatic [facility] 09/05/2023 Ambulatory Complete rotator cuf f tear or rupture of left shoulder, not specified as traumatic Complete rotator cuff tear or rupture of left shoulder, not specified as traumatic [facility] 09/02/2023 Ambulatory Complete rotator cuf f tear or rupture of left shoulder, not specified as traumatic Complete rotator cuff tear or rupture of left shoulder, not specified as traumatic [facility] 08/29/2023 Ambulatory Complete rotator cuf f tear or rupture of left shoulder, not specified as traumatic Complete rotator cuff tear or rupture of left shoulder, not specified as traumatic [facility] 08/27/2023 Ambulatory Complete rotator cuf f tear or rupture of left shoulder, not specified as traumatic Complete rotator cuff tear or rupture of left shoulder, not specified as traumatic [facility] 08/22/2023 Ambulatory Complete rotator cuf f tear or rupture of left shoulder, not specified as traumatic Complete rotator cuff tear or rupture of left shoulder, not specified as traumatic [facility] 08/20/2023 Ambulatory Pain in left ankle and joints of left foot Pain in left ankle and joints of left foot [facility] 08/20/2023 Ambulatory Pain in left ankle and joints of left foot Pain in left ankle and joints of left foot [facility] 08/20/2023 Ambulatory Pain in unspecified shoulder Pain in unspecified shoulder [facility] 07/29/2023 Ambulatory Pain in unspecified shoulder Pain in unspecified shoulder [facility] 07/29/2023 Ambulatory Presence of right artificial knee joint Presence of right artificial knee joint [facility] 07/04/2023 Ambulatory Pain in right knee Pain in right knee [facility] 06/06/2023 Ambulatory Pain in right knee Pain in right knee [facility] 03/11/2023 Ambulatory Pain in right knee Pain in right knee [facility] 03/04/2023 Ambulatory Pain in right knee Pain in right knee [facility] 02/14/2023 Ambulatory Pain in right knee Pain in right knee [facility] 02/11/2023 Ambulatory Pain in right knee Pain in right knee [facility] 02/07/2023 Ambulatory Pain in right knee Pain in right knee [facility] 02/04/2023 Ambulatory Pain in right knee Pain in right knee [facility] 02/01/2023 Ambulatory Pain in right knee Pain in right knee [facility] 01/30/2023 Ambulatory Pain in right knee Pain in right knee [facility] 01/24/2023 Ambulatory Pain in right knee Pain in right knee [facility] 01/16/2023 Ambulatory Pain in right knee Pain in right knee [facility] 01/14/2023 Ambulatory Pain in right knee [facility] 01/03/2023 Ambulatory [facility] 11/02/2022 Ambulatory [facility] 10/22/2022 Ambulatory [facility] 10/22/2022 Care Team Organization Name Specialty Phone Email Start Date End [facility] 10/28/2024 [facility] SID ALBRECHT Primary Care 09/03/2024 [facility] SID ALBRECHT Primary Care 09/01/2024 [facility] SID ALBRECHT Primary Care 06/02/2024 [facility] SID ALBRECHT Primary Care 05/29/2024 [facility] SID RAMOS Primary Care 10/17/2023 [facility] Thierry Laughlin Primary Care 01/03/2023 025 [facility] Thierry Laughlin Primary Care 01/03/2023 023 [facility] THIERRY LAUGHLIN Primary Care 03/10/2021 02/03/2024
--- OUTSIDE RECORDS SUMMARY | 2025-01-05 15:40 | XMS_ITS | Encounter Summary ---
Author Organization [facility] Address [address] [place] [address] Care Team Providers Care Adjustment Clerk Name Role Phone Thierry Leslie MD Primary Care Provider [phone] Thierry Leslie MD Unavailable [phone] Brent Crisostomo MD Primary Care Provider [phone] Encounter Details Date Type Department Care Team (Late st Contact Info) Description 09/03/2023 Scanned Document [facility] [address] [place] [address] Ruben Harrell MD [address] [place] [address] Social History Tobacco Use Types Packs/Day Years [...] on filedocumented in this encounter Care Teams Adjustment Clerk Relationship Specialty Start Date End Date Thierry Leslie MD [address] [place] [address] PCP - General Internal Medicine 07/07/20 10/15/23 Brent Crisostomo MD [address] [facility] [address] [place] [address] PCP - General Internal Medicine 10/16/23 Thierry Leslie MD [address] [place] [address] Internal Medicine 07/07/20 10/15/23 documented as of this encounter
--- OUTSIDE RECORDS SUMMARY | 2025-01-05 15:40 | XMS_ITS | Data Portability ---
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 [email or web address] Not available 03/22/2020 15:42:16 06/29/2020 06/29/2020 Brooklynn [...] in four weeks by telehealth visit . [email or web address] Not available 06/29/2020 14:02:10 12/07/2020 12/07/2020 Brooklynn [...] booked for the same. She needs a bulk truck driver on the day of the procedure. [...] booked for the same. She needs a bulk truck driver on the day of the procedure. [email or web address] Not available 05/24/2022 15:27:51 Plan of Treatment Reminders Order Date Submit Date Provider Last Modified By Organization Details Last Modified Time Details Appointments None recorded. Lab None recorded. Referral None recorded. Procedures None recorded. Surgeries None recorded. Imaging None recorded. Medication Orders ZTlido 1.8 % topical patch 2021 022 [id number], [address] [place], [place], [id number], 14:52:27 ZTlido 1.8 % topical patch 2019 020 [id number], [address], [place], [place], [id number], 0 15:43:11 Patient TargetsNo targets recorded. Patient Instructions Encounter Date Encounter Id Patient Instructions Last Modified By Organization Details Last Modified Time 03/22/2020 [id number] She was advised against bed rest lasting longer than four days and to continue activities as tolerated. [email or web address] Not available 03/22/2020 15:41:04 06/29/2020 [id number] She was advised against bed rest lasting longer than four days and to continue activities as tolerated. [email or web address] Not available 06/29/2020 14:02:11 12/07/2020 [id number] She was advised against bed rest lasting longer than four days and to continue activities as tolerated. [email or web address] Not available 12/08/2020 11:09:19 02/26/2022 [id number] She was advised against bed rest lasting longer than four days and to continue activities as tolerated. [email or web address] Not available 02/27/2022 08:51:33 05/24/2022 [id number] She was advised against bed rest lasting longer than four days and to continue activities as tolerated. [email or web address] Not available 05/24/2022 15:27:51 Reason for Referral None Reported. Problems Name Problem SNOMED Code Status Onset Date Resolution Date Notes Provider Name and Address Organization Details Recorded Time Right saphenous neuritis 495283854575 108 Active Meme gant MD [address] , [address], [place], [address], [place] [facility] 9 15:07:29 Arthritis of right knee 002480784614 9102 Active Meme gant MD [address] , [address], [place], [address], [place] [facility] 9 15:07:43 Complex regional pain syndrome, type II, lower limb 110157844 Completed 10/16/2018 Meme gant MD [address] , [address], [place], [address], [place] [facility] 9 14:51:48 Complex regional pain syndrome type I 572632541 Active Meme gant MD [address] , [address], [place], [address], [place] [facility] 9 14:52:12 Cervical radiculop athy 77213173 Active Meme gant MD [address] , [address], [place], [address], [place] [facility] 9 10:12:07 Lumbar radiculop athy 942542398 Active Meme gant MD [address] , [address], [place], [address], [place] [facility] 0 15:48:26 Degenerat ion of lumbar intervert ebral disc 13565249 Active Meme gant MD [address] , [address], [place], [address], [place] [facility] 0 15:48:40 Complex regional pain syndrome of lower limb 924948808 Active 2018 Meme gant MD [address] , [address], [place], [address], [place] [facility] 9 14:54:07 Problem Notes None recorded. Procedures Surgical History Date Name Laterality Status Provider Name and Address Organization Details Recorded Time 12/08/19 21 Sapheneous Nerve block under ultrasound guidance completed Meme Ackerman MD [address] , [address], [place], [address], [place] [facility] 12/08/2020 11:09:29 06/29/19 21 Lumbar Epidural steroid injection under fluoroscopic guidance completed Meme Ackerman MD [address] , [address], [place], [address], [place] [facility] 06/29/2020 14:02:58 03/22/20 20 Lumbar Epidural steroid injection under fluoroscopic guidance completed Meme Ackerman MD [address] , [address], [place], [address], [place] [facility] 03/22/2020 15:41:15 12/08/19 20 Lumbar Epidural steroid injection under fluoroscopic guidance completed Meme Ackerman MD [address] [facility] , [address], [place], [address], [place] [facility] 12/08/2019 16:15:24 07/14/19 20 Lumbar Epidural steroid injection under fluoroscopic guidance completed Meme Ackerman MD [address] [facility] , [address], [place], [address], [place] [facility] 07/14/2019 16:27:03 01/20/20 19 Sapheneous Nerve block under ultrasound guidance completed Meme Ackerman MD [address] [facility] , [address], [place], [address], [place] [facility] 01/19/2019 14:14:27 11/07/19 19 Sapheneous Nerve block under ultrasound guidance completed [facility] [address] [facility] [address], [place], [address], [place] [facility] 11/07/2018 09:07:54 10/17/19 19 Sapheneous Nerve block under ultrasound guidance completed Meme Ackerman MD [address] [facility] , [address], [place], [address], [place] [facility] 10/16/2018 14:25:02 09/26/19 19 Sapheneous Nerve block under ultrasound guidance completed Meme Ackerman MD [address] [facility] , [address], [place], [address], [place] [facility] 09/25/2018 [...] Name and Address Organization Details Recorded Time 97053 acetamino phen / oxycodone medicatio n Not available Not available Not available 01/19/2019 41156 3 RxNorm Palpi ation s Meme gant MD [facility] [address] , [address], [facility] [place], [address] , [place] [facility] 0 15:46:40 [...] in Arterial blood by Pulse oximetry Systolic And Diastolic Provider Name and Address Organization Details Last Updated DateTime 1 162.56 cm 84 /min 96 % 96 % 171/77 mm[Hg] Pedro gant [place] [facility] 1 11:29:06 Date Recorded Body height Heart rate Oxygen saturation Oxygen saturation in Arterial blood by Pulse oximetry Systolic And Diastolic Provider Name and Address Organization Details Last Updated DateTime 1 162.56 cm 66 /min 99 % 99 % 141/63 mm[Hg] Meme gant MD [address] [place] [address] , [address], [place], [address], [place] [facility] 1 15:08:45 Date Recorded Body height Provider Name an d Address Organization Details Last Updated DateTime 12/13/2020 162.56 cm Nelida Mims [place] [facility] 12/13/2020 14:06:30 Date Recorded Heart rate Oxygen saturation Oxygen saturation in Arterial blood by Pulse oximetry Systolic And Diastolic Provider Name and Address Organization Details Last Updated DateTime 02/26/2022 74 /min 98 % 98 % 176/81 mm[Hg] Pedro [place] [facility] 2 15:24:11 Date Recorded Body height Heart rate Oxygen saturation Oxygen saturation in Arterial blood by Pulse oximetry Systolic And Diastolic Provider Name and Address Organization Details Last Updated DateTime 0 162.56 cm 74 /min 98 % 98 % 163/62 mm[Hg] Nelida Mims [place] [facility] 0 13:59:31 Date Recorded Heart rate Oxygen saturation Oxygen saturation in Arterial blood by Pulse oximetry Systolic And Diastolic Provider Name and Address Organization Details Last Updated DateTime 05/24/2022 71 /min 97 % 97 % 167/74 mm[Hg] Nelida Mims [place] [facility] 2 14:34:35 Social History Question Answer Notes LastModified by [employer] Details LastModified Time Tobacco Smoking Status Former Smoker Quit x 45 years Viridiana Emanuel gila [place] [facility] 08/25/2018 14:25:11 Which Illicit Or Recreational Drugs Have You Used? 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 With Others Information not available 08/25/2018 Marital Status Informatio n not available 08/25/2018 What Was The Date Of Your Most Recent Tobacco Screening? 12/23/2018 Information not available 01/07/2019 How Many Years Have You Smoked Tobacco? 10 [email or web address] Information not available 08/25/2018 Sex: Unknown Functional Status Question Answer Note LastModified by [employer] Details LastModified Time What is your level of alcohol consumption? Occasional Information not available 08/25/2018 Are you currently employed? No Information not available 08/25/2018 What is your occupation? Retired Information not available 08/25/2018 Mental Status None recorded. Family History Relationship [...] SNOMED-CT Code Diagnosis ICD10 Code Diagnosis Note [id number] Meme Ackerman MD PAIN OFFICE [address] [facility] [address] [facility] [place] [address] 08/25/2018 13:49:45 08/29/2018 11:10:41 Arthritis of right knee 6460807870 665197 M13.861 Neuritis o f saphenous nerve 778300287 G57.81 [id number] Meme Ackerman MD PAIN OFFICE [address] [facility] [place] [address] 09/22/2018 13:03:21 09/24/2018 15:15:32 Arthritis of right knee 0409906606 536681 M13.861 Neuritis o f saphenous nerve 949972525 G57.81 [id number] Meme Ackerman MD [facility] [address] [facility] [place] [address] 09/25/2018 14:53:31 09/25/2018 15:58:43 Arthritis of right knee 8694956086 880737 M13.861 Neuritis o f saphenous nerve 978907120 G57.81 89843 Meme Ackerman MD PAIN OFFICE [address] [facility] [place] [address] 10/16/2018 13:34:02 10/16/2018 14:27:02 Arthritis of right knee 2984540520 043106 M13.861 Neuritis o f saphenous nerve 448732038 G57.81 Complex re gional pain syndrome of lower limb 756486760 G90.521 41449 Meme Ackerman MD [facility] PA[facility] OFF[facility] [address] [facility] [place] [address] 11/06/2018 13:02:39 11/07/2018 10:17:20 Arthritis of right knee 9397933974 467691 M13.861 Neuritis o f saphenous nerve 019992661 G57.81 Complex re gional pain syndrome of lower limb 580323698 G90.521 Cervical radiculopathy 98401382 M54.12 [id number] Meme Ackerman MD PAIN OFFICE [address] [facility] [place] [address] 12/22/2018 14:01:20 12/23/2018 11:02:50 Arthritis of right knee 2742063547 322346 M13.861 Neuritis o f saphenous nerve 132527318 G57.81 Complex re gional pain syndrome of lower limb 274900300 G90.521 Cervical radiculopathy 38915028 M54.12 [id number] Meme Ackerman MD PAIN OFFICE [address] [place] [address] 01/19/2019 13:07:32 01/19/2019 14:16:46 Arthritis of right knee 9493121787 407721 M13.861 Neuritis o f saphenous nerve 584256492 G57.81 Complex re gional pain syndrome of lower limb 042298292 G90.521 Cervical radiculopathy 71573587 M54.12 Pain of ri ght hip joint 7397343815 31504 M25.551 [id number] Meme Ackerman MD PAIN OFFICE [address] [place] [address] 02/26/2019 15:30:27 03/06/2019 10:57:15 Arthritis of right knee 4790898588 644842 M13.861 Neuritis o f saphenous nerve 255502721 G57.81 Complex re gional pain syndrome of lower limb 169671018 G90.521 Cervical radiculopathy 58479513 M54.12 Pain of ri ght hip joint 2290036634 53771 M25.551 [id number] Meme Ackerman MD PAIN OFFICE [address] [place] [address] 07/13/2019 15:31:34 07/13/2019 16:55:10 Lumbar radiculopathy 681233153 M54.16 Degenerati on of lumbar intervertebral disc 23513789 M51.36 [id number] Meme Ackerman MD [facility] PA[facility] [address] [place] [address] 07/14/2019 14:40:04 07/14/2019 16:30:24 Lumbar radiculopathy 038861994 M54.16 Degenerati on of lumbar intervertebral disc 03264478 M51.36 21349 Meme Ackerman MD PAIN OFFICE [address] [place] [address] 11/12/2019 14:28:36 11/12/2019 15:34:56 Lumbar radiculopathy 308480215 M54.16 Degenerati on of lumbar intervertebral disc 50858651 M51.36 [id number] Meme Ackerman MD PAIN OFFICE [address] [place] [address] 12/08/2019 13:03:19 12/08/2019 16:17:32 Lumbar radiculopathy 883842081 M54.16 Degenerati on of lumbar intervertebral disc 71550422 M51.36 Arthritis of right knee 9208152520 363399 M13.861 32841 Meme Ackerman MD PAIN OFFICE [address] [place] [address] 01/18/2020 10:00:28 01/18/2020 10:05:33 Lumbar radiculopathy 228264337 M54.16 Degenerati on of lumbar intervertebral disc 61786248 M51.36 Arthritis of right knee 4048626256 332295 M13.861 04294 Meme Ackerman MD PAIN OFFICE [address] [place] [address] 02/26/2020 09:33:19 03/23/2020 11:08:03 Lumbar radiculopathy 508602851 M54.16 Degenerati on of lumbar intervertebral disc 78482034 M51.36 [id number] Meme Ackerman MD PAIN OFFICE [address] [place] [address] 03/22/2020 13:53:02 03/22/2020 15:59:46 Lumbar radiculopathy 329186539 M54.16 Degenerati on of lumbar intervertebral disc 10679652 M51.36 Arthritis of right knee 4417267699 361626 M13.861 41970 Meme Ackerman MD PAIN OFFICE [address] [place] [address] 06/29/2020 11:22:43 06/29/2020 14:05:21 Lumbar radiculopathy 102013726 M54.16 Degenerati on of lumbar intervertebral disc 27086215 M51.36 Arthritis of right knee 2921422206 173145 M13.861 [id number] Meme Ackerman MD PAIN OFFICE [address] [facility] [place] [address] 12/07/2020 15:05:22 12/08/2020 11:11:51 Arthritis of right knee 0176487510 357934 M13.861 Neuritis o f saphenous nerve 957781724 G57.81 Complex re gional pain syndrome of lower limb 900380219 G90.521 Cervical radiculopathy 83099364 M54.12 Pain of ri ght hip joint 2253115445 42208 M25.551 [id number] Meme Ackerman MD PAIN OFFICE [address] [facility] [place] [address] 02/26/2022 15:15:06 02/27/2022 08:52:19 Lumbar radiculopathy 127385103 M54.16 Degenerati on of lumbar intervertebral disc 10187565 M51.36 [id number] Meme Ackerman MD PAIN OFFICE [address] [facility] [address] 05/24/2022 14:25:07 05/24/2022 15:28:56 Arthritis of right knee 6346979904 515425 M13.861 Lumbosacra l radiculopathy 0157535 M54.17 Lumbar radiculopathy 128 741915 M54.16 Degenerati on of lumbar intervertebral disc 38080462 M51.36 Health Concerns Section Related Observation LastModified by Organization Detai ls LastModified Time None Recorded Concern Status LastModified by Organization Details LastModified Time None Recorded Advance Directives Directive None Recorded Payers Insurance Date Sequence Insurance Name Policy Number Policy Galicia Covered Member ID Galicia Member ID Guarantor Name 05/21/2022 1 [place]: [employer] Brooklynn Novak [id number] Brooklynn Novak 05/21/2022 2 A[employer] (MEDICARE SUPPLEMENT) Brooklynn Novak [id number] Brooklynn Novak Notes Date Note Type Note Provider Name and Address Organization Details Recorded Time 03/22/2020 text/html She is here for a lumbar epidural steroid injection under fluoroscopic guidance. Meme Ackerman MD [address] [facility] , [address], [place], [address], [facility] 03/22/2020 16:17:10 06/29/2020 text/html She is here for a lumbar epidural steroid injection under fluoroscopic guidance. Meme Ackerman MD [address] [facility] , [address], [place], [address], [place] [facility] 06/29/2020 15:50:36 12/07/2020 text/html She is here for a repeat saphenous nerve block under ultrasound guidance. She reports some pain benefit after last injection. Meme Ackerman MD [address] [facility] , [address], [place], [address], [place] [facility] 12/12/2020 10:52:25 02/26/2022 [...] note as she has a case in [place] for which she need to appear in court and is unable to travel due to various reasons. Meme Ackerman MD [address] [facility] , [address], [place], [address], [place] [facility] 02/27/2022 16:08:59 05/24/2022 text/html She [...] or bowel incontinence Meme Ackerman MD [address] , [address], [place], [address], [facility] 05/24/2022 15:39:41 OBGyn Episode No OBEpisode recorded.
--- OUTSIDE RECORDS SUMMARY | 2025-01-05 15:40 | XMS_ITS | Clinical Summary ---
Author Organization [facility] Life Skills Coordinator Volunteer [place] Address [address] [place] [address] Phone Care Team Providers Care Education Diagnostician Name Role Phone Brent Castillo MD Primary Care Provider [phone] Allergies Active Allergy Reactions Criticality Noted Date Comments Audie Inhibitors 09/21/2021 Contraindicated with monthly bee venom injection Bee Venom Protein (Honey Bee) Swelling 05/19/2020 Beta-Blockers (Beta-Adrenergic Blocking Agts) 09/21/2021 Bradycardia Fentanyl 02/17/2021 Other reaction(s): UNKNOWN Oxycodone Other 05/17/2017 Has a hard time coming off medication Medications clonazePAM (KlonoPIN) 1 mg tablet 1 tablet (1 mg total) 2 (two) times a day. 0 Active EPINEPHrine (EPIPEN) 0.3 mg/0.3 mL injection [...] each day. 180 tablet 3 4 Active soluble corn fiber-inulin (Benefiber, inulin-corn fiber,) 2 gram tablet,chewable Chew. Acti ve cholestyramine (QUESTRAN) 4 gram powder Take 1 packet (4 g total) by mouth 1 (one) time each day. Dissolve in 8 oz of liquid and drink before a meal 30 packet 1 5 11/03/19 26 Active Active Problems Problem Noted Date Diagnosed Date Acquired hammer toe of left foot 02/04/2024 Epigastric pain 02/04/2024 Pain of left hip joint 12/05/2022 Trochanteric bursitis of left hip 12/05/2022 Loosening of knee joint prosthesis ([facility] V24) 10/23/2022 Arthritis of right knee 06/01/2021 [...] normal strain, normal studyu 30 day loop Lipids--[id number], HDL57, TG151, IAG827 Complex regional pain syndrome of lower limb 07/2018 Bilateral tinnitus 05/17/2017 Chest pain 05/17/2017 Primary osteoarthritis involving multiple joints 05/17/2017 Hyperlipidemia 10/04/2016 Encounters Date Type Department Care Team Description 12/25/2024 Telephone [facility] [address] [place] [address] Isma Barrera MA 11/18/2024 Telephone [facility] [address] [place] [address] Isma Barrera MA Advice Only 11/17/2024 Telephone [facility] [address] [place] [address] Isma Barrera MA Advice Only 11/17/2024 Telephone [facility] [address] [place] [address] Isma Barrera MA 11/02/2024 1:00 PM EDT Office Visit [facility] [address] [place] [phone] Yesi Campos MD Diarrhea, unspecified type (Primary [...] Sign Reading Time Taken Comments Blood Pressure 138/80 11/02/2024 1:08 PM EDT Pulse 67 11/02/2024 1:08 PM EDT Temperature - - Respiratory Rate - - Oxygen Saturation 97% 11/02/2024 1:08 PM EDT Inhaled Oxygen Concentration - - Weight 70.8 kg (156 lb) 11/02/2024 1:08 PM EDT Height 152.4 cm (5') 11/02/2024 1:08 PM EDT Body Mass Index 30.47 11/02/2024 1:08 PM EDT Plan of Treatment Upcoming Encounters Date Type Department Care Team ([facility] st Contact Info) Description 05/28/2025 2:00 PM EST Office Visit [facility] [place] [address] [facility] [address] [place] [phone] Franklin Whalen MD 19 [facility] [address] [place], [place] [id number] Health Maintenance Due Date Last Done Comments Zoster Vaccines (1 of 2) 1989 DTaP,Tdap,and Td Vaccines (3 - Td or Tdap) 12/19/2021 12/20/2011, 03/17/2001 Falls Risk Assessment 05/24/2022 Medicare Annual Wellness Visit 05/24/2022 Osteoporosis Screening (Bone Density Screening) 05/24/2022 Social Influencers of Health Screening 05/24/2022 COVID-19 Vaccine ( season) 2024 04/20/2022, 12/10/2021, 03/21/2021, Additional history exists Depression Screening 06/17/2024 Influenza Vaccine (#1) 2025 , 02/17/2023, 03/03/2022, Additional history exists Hypertension/CHF/CAD Annual BMP Blood Test 09/01/2025 09/01/2024 Cholesterol Screening (Lipid Panel) 09/01/2029 09/01/2024 RSV Immunization Adult Patients Completed 05/16/2023 Pneumococcal Vaccine: 50+ Years Completed 03/05/2024, 05/17/2017, [...] Procedure Name Priority Date/Time Associated Diagnosis Comments COMPREHENSIVE METABOLIC PANEL Routine 09/01/2024 2:01 PM EDT Loose stools Diarrhea, unspecified type Essential hypertension, malignant Familial combined hyperlipidemia LIPID PANEL WITH REFLEX TO DIRECT LDL Routine 09/01/2024 2:01 PM EDT Loose stools Diarrhea, unspecified type Essential hypertension, malignant Familial combined hyperlipidemia from Last 3 Months or Most Recently Relevant to Health Maintenance Results * Lipid panel with reflex to direct LDL (09/01/2024 2:01 PM EDT) Cholesterol 175 0 - 200 mg/dL LAB CHEMISTRY METHOD 09/01/2024 8:03 PM EDT [facility] Triglycerides 137 <150 mg/dL LAB CHEMISTRY METHOD 09/01/2024 8:03 PM EDT [facility] HDL 49 33 - 92 mg/dL LAB CHEMISTRY METHOD 09/01/2024 8:03 PM EDT [facility] LDL Calculated 99 50 - 130 mg/dL LAB CHEMISTRY METHOD 09/01/2024 8:03 PM EDT [facility] VLDL Cholesterol Sahil 27.4 mg/dL LAB CHEMISTRY METHOD 09/01/2024 8:03 PM EDT [facility] Comment:No established refer ence range. Blood Venous blood specimen / Unknown Venipuncture / Unknown 09/01/2024 2:01 PM EDT 09/01/2024 2:01 PM EDT us Brent Castillo MD LAB BLOOD ORDERABLES Final Res ult [facility] [address] [place] [address], [place] [phone] * (ABNORMAL) Comprehensive metabolic panel (09/01/2024 2:01 PM EDT) Sodium 141 135 - 145 mmol/L LAB CHEMISTRY METHOD 09/01/2024 8:03 PM EDT [facility] Potassium 4.7 3.5 - 5.1 mmol/L LAB CHEMISTRY METHOD 09/01/2024 8:03 PM EDT [facility] Chloride 105 98 - 107 mmol/L LAB CHEMISTRY METHOD 09/01/2024 8:03 PM EDT [facility] CO2 29 24 - 32 mmol/L LAB CHEMISTRY METHOD 09/01/2024 8:03 PM EDT [facility] Anion Gap 7 5 - 14 LAB CHEMISTRY METHOD 09/01/2024 8:03 PM EDT [facility] Glucose 99 70 - 99 mg/dL LAB CHEMISTRY METHOD 09/01/2024 8:03 PM EDT [facility] BUN 17 7 - 17 mg/dL LAB CHEMISTRY METHOD 09/01/2024 8:03 PM EDT [facility] Creatinine 0.80 0.50 - 1.00 mg/dL LAB CHEMISTRY METHOD 09/01/2024 8:03 PM EDT [facility] eGFR 72 >=60 mL/min/1. 73m2 LAB CHEMISTRY METHOD 09/01/2024 8:03 PM EDT [facility] Comment:Calculation based on the Chronic Kidney Disease Epidemiology Collaboration (CKD-EPI) equation refit without adjustment for race. BUN/Creatinine Ratio 21.3(H) 12.0 - 20.0 LAB CHEMISTRY METHOD 09/01/2024 8:03 PM EDT [facility] Calcium 9.8 8.4 - 10.2 mg/dL LAB CHEMISTRY METHOD 09/01/2024 8:03 PM EDT [facility] AST (SGOT) 12 5 - 40 unit/L LAB CHEMISTRY METHOD 09/01/2024 8:03 PM EDT [facility] ALT (SGPT) 7 7 - 52 unit/L LAB CHEMISTRY METHOD 09/01/2024 8:03 PM EDT [facility] Alkaline Phosphatase 68 34 - 104 unit/L LAB CHEMISTRY METHOD 09/01/2024 8:03 PM EDT [facility] Total Protein 6.6 6.4 - 8.5 g/dL LAB CHEMISTRY METHOD 09/01/2024 8:03 PM EDT [facility] Albumin 4.3 3.5 - 5.0 g/dL LAB CHEMISTRY METHOD 09/01/2024 8:03 PM EDT [facility] Total Bilirubin 0.7 0.3 - 1.0 mg/dL LAB CHEMISTRY METHOD 09/01/2024 8:03 PM EDT [facility] Blood Venous blood specimen / Unknown Venipuncture / Unknown 09/01/2024 2:01 PM EDT 09/01/2024 2:01 PM EDT us Brent Castillo MD LAB BLOOD ORDERABLES Final Res ult [facility] [address] [place] [address], from Last 3 Months or Most Recently Relevant to Health Maintenance Insurance MEDICARE [facility] Advance Directives Documents on File Type Date Recorded Patient Insurance Sales Assistant Expl [facility] Health Care Decision (hx) 09/10/2021 AD ALECIA DIRECTIVE Care Teams Education Diagnostician Relationship Specialty Start Date End Date Brent Castillo MD [address] [place] [address] PCP - General Freelance Patternmaker 12/15/21
--- OUTSIDE RECORDS SUMMARY | 2025-01-05 15:41 | XMS_ITS | Patient Health Record ---
Author [facility] Address [address] [place] [address] Care Team Providers Care Basket Sorter Name Role Phone Thierry Leslie MD Primary Care Provider Unavail able [address] Unavailable [phone] Allergies Allergen (clinical drug ingredient) Drug/Non Drug Allergy documented on EMR Reaction Allergy Type Onset Date Status EPINEPHrine Unknown Drug Allergy Activ e Reason For Referral No Information Medications Medication SIG (Take, Route, Frequency, Duration) Notes Start Date End Date Status Amoxicillin 500 MG TAKE 4 CAPSULES BY MOUTH 1 HOUR PRIOR TO DENTAL APPOINTMENT Oral; Duration: 3 Not-Taking Tylenol Active Meloxicam 15 MG TAKE 1 TABLET ONCE A DAY. Oral; Duration: 60 Not-Taking Lisinopril 5 MG 1 tablet Orally Once a day; Duration: 30 day(s) Active Lisinopril 10 MG 1 tablet Orally Once a day; Duration: 30 day(s) Active clonazePAM 1 MG (Schedule IV Drug) TAKE 2 TABLETS AT BEDTIME Oral; Duration: 90 Active EpiPen PRN Active hydroCHLOROthiazide Not-Taking Simvastatin 20 MG 1 tablet in the evening Orally Once a day 06/19/2016 Active Acetaminophen-Codeine #3 300-30 MG (Schedule III Drug) TAKE 1 TABLET BY MOUTH EVERY 6 HOURS NEEDED FOR 7 DAYS Oral; Duration: 7 Not-Taking Fluzone High-Dose 0.5 ML TO BE ADMINISTE RED BY PHARMACIST FOR IMMUNIZATION Intramuscular; Duration: 1 Not-Taking Keflex 500 MG 1 capsule Orally every 12 hrs; Duration: 5 days Not-Taking Xylocaine Active Social History [...] Problem Status W/U Status Risk Notes Problem Other hammer toe(s) (acquired), left foot (M20.42) Active confirmed Plan Of Treatment Pending Test Test Name Order Date 65996-Eeilutpm Plate 06/19/2016 72050-Nblcxylq Plate 05/03/2017 72682- Debride <25 sq cm 07/10/2016 97291- Nail Unit Biopsy 02/27/2018 Insurance Providers Payer Name Payer Address Payer Phone Subscriber Number Group Number Insured Name Patient Relationship to Insured Coverage Start Date Coverage End Date Medicare National Govt [facility] [address] [place] [address] [id number] Brooklynn Novak Self - patient is the insured AARP Secondary to Medicare [address] [place] [address] [id number] Brooklynn Novak Self - patient is the insured 6 Medical (General) History Medical History History ICD Code Back,Hip,and Knee pain Cholesterol Hypertension Rheumatic fever Scarlet fever Measles Mumps Chicken pox Joint implants/screws Surgical History Surgery Date(Month/Year) right knee arthroscopy 03/31 right partial knee replacement 12/12/15 Total Knee right revision 12/2016 cataract surgery 01/19/21 Hospitalization History Reason Date(Month/Year) [facility] for total k nee replacement 12/2016 Bharati question on cardiac issues 09/2018
--- OUTSIDE RECORDS SUMMARY | 2025-01-05 15:41 | XMS_ITS | Clinical Summary ---
Author Organization [facility] Address [address] [place] [address] Care Team Providers Care Interactive Project Manager Name Role Phone Brent Crisostomo MD Primary Care Provider [phone] Allergies Active Allergy Reactions Criticality Noted Date [...] normal strain, normal studyu 30 day loop Lipids--[id number], HDL57, TG151, LQZ668 Complex regional pain syndrome of lower limb [...] 70 12/13/2023 2:15 PM EDT Temperature 36.6 C (97.8 F) 08/17/2022 3:02 PM EST Respiratory Rate - - Oxygen Saturation 99% [...] or Tdap) 12/19/2021 12/20/2011, 03/17/2001 COVID-19 Vaccine ( season) 2024 08/12/2020, 07/22/2020 Influenza Vaccine (#1) 2025 8, 03/06/2014, 03/08/2013, Additional history exists Pneumococcal Vaccine Completed 05/17/2017, 03/17/20 04 Hepatitis B Vaccines Aged Out No long er eligible based on patient's age to complete this topic RSV Ped < 20 months Aged Out No longe r eligible based on patient's age to complete this topic Care Teams Interactive Project Manager Relationship Specialty Start Date End Date Brent Crisostomo MD [address] [place] [id number] PCP - General Transit Department Clerk 05/04/22
--- OUTSIDE RECORDS SUMMARY | 2025-01-05 15:41 | XMS_ITS | Clinical Summary ---
Author Organization [facility] Address [address] [address] Phone Care Team Providers Care Preanalytics Team Lead Name Role Phone Unknown, Unknown Primary Care Provider Unavai lable Allergies Active Allergy Reactions Criticality Noted Date Comments Bee Pollen 06/12/2019 Rosuvastatin GI Upset 05/17/2017 Epinephrine Palpitations Low 01/07/2014 Lisinopril Cough 05/17/2017 Oxycodone Other (See Comments) 05/17/2017 Has a hard time coming off medication Oxycodone-Acetaminophe n 06/11/2019 Medications EPINEPHrine 0.3 mg/0.3 mL auto-injectorIn dications:Aller gic reaction to bee sting Inject 0.3 mL (0.3 mg total) into the muscle as needed for anaphylaxis. 1 each 2 8 Active loperamide HCl (IMODIUM A-D ORAL)Indication s:prn Take by mouth. Indications: prn Active amoxicillin (AMOXIL) 500 MG capsule Take 4 capsules (2,000 mg total) by mouth as directed. Take 4 capsules 1 hour before procedure 16 capsule 9 Active simvastatin (ZOCOR) 20 MG tablet TAKE 1 TABLET(20 MG) BY MOUTH EVERY NIGHT 90 tablet 3 9 Active clonazePAM (KLONOPIN) 1 MG tablet 1 tab in am and 2 tabs in evening 270 tablet 1 9 Active lidocaine (LIDODERM) 5 % Place 5 patches onto the skin 2 (two) times a day as needed. Active hydroCHLOROthia zide (HYDRODIURIL) 12.5 MG tablet Take 1 tablet (12.5 mg total) by mouth daily. 90 tablet 3 9 Active acetaminophen-c odeine (TYLENOL-CODEIN E #3) 300-30 mg per tablet 1 tablet Q 6 Hours as needed 28 tablet 9 Active Active Problems Problem Noted Date Diagnosed Date Back pain 05/17/2017 Essential hypertension 05/17/2017 Primary osteoarthritis involving multiple joints 05/17/2017 Tinnitus 05/17/2017 Hypercholesterolemia 10/04/2016 Immunizations Immunization Administration Dates Next Due Influenza High-Dose Trivalen t Preservative Free IM 03/14/2018 Influenza Trivalent w/ Preservative IM 4,03/08/2013,03/25/2010 Influenza, Unspecified Formulation 04/03/2019, Pneumococcal conjugate PCV13 05/17/2017 Pneumococcal polysaccharide PPSV23 03/17/2004 Td (adult) 5 Lf Tetanus Toxo id, PF, Adsorbed 03/17/2001 Tdap 12/20/2011 Family History Medical History Relation Comments Diabetes Mother Diabetes Mellitu s Relation Status Comments Mother Social History Tobacco Use Types Packs/Day Years Used Date Smoking Tobacco: Former Cigarettes 1 10 1 07/18/1959 - 05/17/1970 Smokeless Tobacco: Never Alcohol Use Standard Drinks/Week Comments Yes 0 (1 standard drink = 0.6 oz pur e alcohol) socially Education Answer Date Recorded Are you interested in more education? Not on reina e 10/11/2022 Are you concerned about learning? Not on file 10/11/2022 No 10/11/2022 No 10/11/2022 Digital Access Answer Date Recorded No 11/12/2022 No 11/12/2022 No 11/12/2022 Reliable internet access at home? Not on file 11/12/2022 Device with a working camera? Not on file Comments Unknown Sex and Gender Information Value Date Recorded Sex Assigned at Not on file Legal Sex Female 7:20 PM EST Gender Identity Not on file Sexual Orientation Not on file Last Filed Vital Signs Vital Sign Reading Time Taken Comments Blood Pressure 140/70 06/11/2019 11:51 AM EST Pulse 82 06/11/2019 11:51 AM EST Temperature 37.2 C (98.9 F) 06/11/2019 11:51 AM EST Respiratory Rate 16 12/09/2018 2:40 PM EDT Oxygen Saturation 98% 06/11/2019 11:51 AM EST Inhaled Oxygen Concentration - - Weight 73.5 kg (162 lb) 06/11/2019 11:51 AM EST Height 160 cm (5' 3 ) 06/11/2019 11:51 AM EST Body Mass Index 28.7 06/11/2019 11:51 AM EST Plan of Treatment Health Maintenance Due Date Last Done Comments BLOOD PRESSURE 1940 ZOSTER VACCINES (1 of 2) 1989 RSV VACCINE (1 - 1-dose 75+ series) 2014 DEPRESSION SCREENING 09/12/2019 09/11/2018 POTASSIUM LEVEL 11/21/2019 11/20/2018, 05/29/2018 Adult Td,Tdap Booster 12/19/2021 12/20/2011 , 03/17/2001 COVID-19 VACCINE (2023-2 5 season) 2024 OSTEOPOROSIS SCREENING INITI AL (ONE-TIME) Completed 01/15/2012 PNEUMOCOCCAL VACCINES (50+ years) Completed 05/17/2017, 03/17/2004 HEPATITIS A VACCINES Aged Out No long er eligible based on patient's age to complete this topic HIB VACCINES Aged Out No longer eligi ble based on patient's age to complete this topic MENINGOCOCCAL VACCINES (ACWY) Aged Out No longer eligible based on patient's age to complete this topic MENINGOCOCCAL VACCINES (B) Aged Out N o longer eligible based on patient's age to complete this topic Medical Devices Not on file Procedures Procedure Name Priority Date/Time Associated Diagnosis Comments BASIC METABOLIC PANEL Routine 11/20/2018 OUTSIDE BONE DENSITY SCREENING Routine 01/15/2012 from Last 3 Months or Most Recently Relevant to Health Maintenance Results * Basic metabolic panel (11/20/2018) Dev Saavedra MD LAB BLOOD ORDERABLES Final Re sult * OUTSIDE BONE DENSITY SCREENING (01/15/2012) [facility] Signature BONE DENSITY SCREENING - EXTERNAL .. Historical Provider HEALTH MAINTENANCE Final Result from Last 3 Months or Most Recently Relevant to Health Maintenance Insurance MEDICARE PART A & B Member Subscriber Plan / Payer ( fective 2004-) Name:Brooklynn Novak Member ID:[id number] Relation to Subscriber:Self Name:Brooklynn Novak Subscriber ID:[id number] Payer ID:[id number] Group ID:Not on file Type:Medicare Address: [employer] [address] [place] [address] [place] [address] MEDICARE SUPPLEMENT MEDICARE PART A & B [facility] MEDICARE SUPPLEMENT MEDICARE PART A & B MEDICARE SUPPLEMENT MEDICARE PART A & B Member Subscriber Plan / Payer ( fective 2004-) Name:Brooklynn Novak Member ID:[id number] Relation to Subscriber:Self Name:Brooklynn Novak Subscriber ID:[id number] Payer ID:[id number] Group ID:Not on file Type:Medicare Address: [employer] [address] [facility] MEDICARE SUPPLEMENT MEDICARE PART A & B [facility] MEDICARE SUPPLEMENT MEDICARE PART A & B Member Subscriber Plan / Payer ( fective 2004-) Name:Brooklynn Novak Member ID:[id number] Relation to Subscriber:Self Name:Brooklynn Novak Subscriber ID:[id number] Payer ID:[id number] Group ID:Not on file Type:Medicare Address: [employer] [address] MEDICARE SUPPLEMENT MEDICARE PART A & B MEDICARE SUPPLEMENT MEDICARE PART A & B Member Subscriber Plan / Payer ( fective 2004-Present) Name:Brooklynn Novak Member ID:[id number] Relation to Subscriber:Self Name:Brooklynn Novak Subscriber ID:[id number] Payer ID:[id number] Group ID:Not on file Type:Medicare Address: [employer] [address] MEDICARE SUPPLEMENT MEDICARE PART A & B [facility] MEDICARE SUPPLEMENT Care Teams Preanalytics Team Lead Relationship Specialty Start Date End Date Unknown, Unknown, PCP - General 09/08/19 Additional Source Comments The information contained in this document represents components of the legal health record. It is not the complete legal health record.[facility]
== END 2025-01-05 14:25 | disposition home or self-care (01) ==
LOC: HO.HAP 14:24
PROVIDERS: Visit Provider Internal Medicine
DX: Z13.89 Encounter for screening for other disorder (principal)

== ENCOUNTER 2025-02-02 13:48 | Outpatient (REF) | payer SELFPAY ==
--- OUTSIDE RECORDS SUMMARY | 2025-02-02 15:06 | XMS_ITS | Clinical Summary ---
Author Organization [facility] Address [address] [address] Phone Care Team Providers Care Edge Worker Name Role Phone Unknown, Unknown Primary Care [...] 10/04/2016 Immunizations Immunization Administration Dates Next Due INFLUENZA, SPLIT VIRUS, TRIV ALENT W/ PRESERVATIVE IM 03/06/2014,03/08/2013,03/25/2010 Influenza High-Dose Trivalen t Preservative Free IM 03/14/2018 Influenza, Unspecified Formulation 04/03/2019, Pneumococcal conjugate PCV13 [...] sult * OUTSIDE BONE DENSITY SCREENING (01/15/2012) [facility] Signature BONE DENSITY SCREENING - EXTERNAL .. Historical Provider HEALTH MAINTENANCE Final Result from Last 3 Months or Most Recently Relevant to Health Maintenance Insurance MEDICARE PART A & B MEDICARE SUPPLEMENT MEDICARE PART A & B [facility] MEDICARE SUPPLEMENT MEDICARE PART A & B [facility] MEDICARE SUPPLEMENT Member Subscriber Plan / Payer ( fective 2015-) Name:Brooklynn Novak Relation to Subscriber:Self Name:Brooklynn Novak Payer ID:[id number] (NAIC) Group ID:Not on file Type:[employer] Address: [facility] [id number] [place] [address] MEDICARE PART A & B [facility] MEDICARE SUPPLEMENT MEDICARE PART A & B [facility] MEDICARE SUPPLEMENT MEDICARE PART A & B MEDICARE SUPPLEMENT [facility] Address: [place] [address] MEDICARE PART A & B MEDICARE SUPPLEMENT MEDICARE PART A & B Member Subscriber Plan / Payer (Ef fective 2004-Present) Name:Brooklynn Novak Member ID:[id number] Relation to Subscriber:Self Name:Brooklynn Novak Subscriber ID:[id number] Payer ID:[id number] Group ID:Not on file Type:Medicare Address: [employer] [address] MEDICARE SUPPLEMENT MEDICARE PART A & B [facility] MEDICARE SUPPLEMENT Care Teams Edge Worker Relationship Specialty Start Date End Date Unknown, Unknown, PCP - General 09/08/19 Additional Source Comments The information contained in this document represents components of the legal health record. It is not the complete legal health record.[facility]
--- OUTSIDE RECORDS SUMMARY | 2025-02-02 15:06 | XMS_ITS | Encounter Summary ---
Author Organization [facility] Address [address] [place] [address] Care Team Providers Care Prenatal Genetic Counselor Name Role Phone Brent Castillo MD Primary Care Provider [phone] Reason for Visit * Reason Onset Date Comments Erratic HR 01/30/2025 Encounter Details Date Type Department Care Team (Late st Contact Info) Description 01/30/2025 Telephone Cardiology - [facility] [address] [place] [address] You Gomez MD [address] [address] Erratic HR Social History Tobacco Use Types Packs/Day Years [...] Progress Notes * Katherine Gannon MA - 02/01/2025 2:14 PM EDT Pt scheduled this Saturday with Dr. Whalen to discuss. * You Gomez MD - 01/30/2025 2:34 PM EDT Images from the original note were not included. Cardiology Attending: Patient called my answering service that patient's heart rate is low (1 lowest reading has been 47 otherwise it is staying 50 to 60s) without mentioning of other symptoms. I discussed this with the patient at length, reassured the patient and advised the patient to continue to monitor it and call our office back to discuss her slow heart rate. Dr. Whalen's nurse and and if this remained persistent she may benefit from cardiac monitoring to assess the bradycardia situation. Patient verbalized understanding. Patient is a retired nurse. Patient is not on any beta-blockers or AV natalya blocking agents. You Gomez.Colin., F.A.C.C., F.A.S.N.C., FCPS., FACP. [facility] cardiologists, [facility]. [phone] documented in this encounter Plan of Treatment Upcoming Encounters Date Type Department Care Team (Late st Contact Info) Description 02/03/2025 2:45 PM EDT Office Visit [facility] [place] [address] [phone] Franklin Whalen MD [address] [place] [address] 05/28/2025 2:00 PM EST Office Visit [facility] [place] [address] [phone] Franklin Whalen MD [address] [place] [address] documented as of this encounter Visit Diagnoses Not on filedocumented in this encounter Care Teams Prenatal Genetic Counselor Relationship Specialty Start Date End Date Brent Castillo MD [address] [place] [address] PCP - General Alteration Hand 12/15/21 documented as of this encounter
--- OUTSIDE RECORDS SUMMARY | 2025-02-02 15:06 | XMS_ITS | Clinical Summary ---
Author Organization [facility] Address [address] [place] [address] Care Team Providers Care Truck Trailer Mechanic Name Role Phone Brent Crisostomo MD Primary Care Provider [phone] Allergies Active Allergy Reactions Criticality Noted Date [...] normal strain, normal studyu 30 day loop Lipids--21cft790, HDL57, TG151, BHM273 Complex regional pain syndrome of lower limb [...] age to complete this topic Care Teams Truck Trailer Mechanic Relationship Specialty Start Date End Date Brent Crisostomo MD [address] [place] [id number] PCP - General Punchboard Assembler 05/04/22
--- OUTSIDE RECORDS SUMMARY | 2025-02-02 15:06 | XMS_ITS | Patient Health Record ---
Author Organization [facility] Billing Info Address [address] [place], [place] [id number] Care Team Providers Care Band Saw Marker Name Role Phone LUCAS GUARDADO Unavailable [phone] LUCAS GUARDADO M.D. Unavailable Unavailable Reason For Referral No Information Plan Of Treatment No Information Insurance Providers Payer Name Payer Address Payer Phone Subscriber Number Group Number Insured Name Patient Relationship to Insured Coverage Start Date Coverage End Date [place]ARE [place] PART B [address] [facility] MELANY PEARSON [id number] Brooklynn Novak Self - patient is the insured 2 2 [facility] MEDICARE SUPPLEMENT [address] [address] [place], [place] [id number] Brooklynn Novak Self - patient is the insured 2 2
--- OUTSIDE RECORDS SUMMARY | 2025-02-02 15:06 | XMS_ITS | Encounter Summary ---
Author Organization [facility] Address [address] [place] [address] Care Team Providers Care International Editorial Producer Name Role Phone Thierry Leslie MD Primary Care Provider [phone] Thierry Leslie MD Unavailable [phone] Brent Crisostomo MD Primary Care Provider [phone] Encounter Details Date Type Department Care Team (Late st Contact Info) Description 09/03/2023 Scanned Document [facility] [address] [place] [address] Ruben Harrell MD [address] [place] [address] Social History Tobacco Use Types Packs/Day Years [...] on filedocumented in this encounter Care Teams International Editorial Producer Relationship Specialty Start Date End Date Thierry Leslie MD [address] [place] [address] PCP - General Internal Medicine 07/07/20 10/15/23 Brent Crisostomo MD [address] [facility] [address] [place] [address] PCP - General Internal Medicine 10/16/23 Thierry Leslie MD [address] [place] [address] Internal Medicine 07/07/20 10/15/23 documented as of this encounter
--- OUTSIDE RECORDS SUMMARY | 2025-02-02 15:06 | XMS_ITS | Patient Health Record ---
Author Organization [facility] Address [address] [facility] [place] [address] Care Team Providers Care Tag Stringer Name Role Phone Thierry Leslie MD Primary Care Provider Unavail able [address] Unavailable [phone] Allergies Allergen (clinical drug ingredient) Drug/Non Drug [...] Problem Acquired hammer toe of left foot ([id number] [id number]) Other hammer toe(s) (acquired), left foot (M20.42) Active confirmed Plan Of Treatment Pending Test Test Name Order Date [id number] Plate 06/19/2016 [id number] Plate 05/03/2017 07028- Debride <25 sq cm 07/10/2016 57994- Nail Unit Biopsy 02/27/2018 Insurance Providers Payer Name Payer Address Payer Phone Subscriber Number Group Number Insured Name Patient Relationship to Insured Coverage Start Date Coverage End Date Medicare [facility] [facility] [address] [facility] [address] [id number] Brooklynn Novak Self - patient is the insured A[employer] Secondary to Medicare [address] [place] [address] [id number] Brooklynn Novak Self - patient is the insured 6 Medical (General) History Medical History History ICD Code Back,Hip,and Knee pain Cholesterol Hypertension Rheumatic fever Scarlet fever Measles Mumps Chicken pox Joint implants/screws Surgical History Surgery Date(Month/Year) right knee arthroscopy 03/31 right partial knee replacement 12/12/15 Total Knee right revision 12/2016 cataract surgery 01/19/21 Hospitalization History Reason Date(Month/Year) [facility] for total k nee replacement 12/2016 [facility]ati question on cardiac issues 09/2018
== END 2025-02-02 13:49 | disposition home or self-care (01) ==
LOC: HO.HAP 13:48
PROVIDERS: Visit Provider Internal Medicine
DX: Z13.89 Encounter for screening for other disorder (principal)